=== PATIENT | female | born 1930 | race Caucasian/White ===

== ENCOUNTER → 2017-02-26 | Outpatient (CLI) | payer OTHER ==
[~2017-02-26] MED LIST: ALBU1AER9 PO; ALEN70TA2 PO; ASPEC81 PO; ATOR-22 PO; CHOL100010 PO; CYAN10005 PO; FERR325T5 PO; HYDR25TA4 PO; MECL1TAB40 PO; MULTTAB58 PO; PRLSR20 PO; VERA120C3 PO
--- NOTE | 2017-02-26 15:47 | MAMMOGRAPHY REPORT ---
BILATERAL DIGITAL SCREENING MAMMOGRAM WITH CAD: 02/26/2017 CLINICAL HISTORY: Routine screening. Patient has no complaints. TECHNIQUE: Current study was also evaluated with a Computer Aided Detection (CAD) system. Bilatera l CC and MLO views were obtained. COMPARISON: Comparison is made to exams dated: 02/20/2016 mammogram, 02/16/2015 mammogram, 11/15/2013 mammogram, 11/12/2012 mammogram - [facility], and 05/23/2009. BREAST COMPOSITION: The tissue of both breasts is heterogeneously dense, which may obscure small ma sses. FINDINGS: No suspicious masses, calcifications, or areas of architectural distortion are noted in e ither breast. There has been no significant interval change compared to prior exams. Bilateral jefry gn appearing calcifications are again noted. IMPRESSION: ACR BI-RADS CATEGORY 2: BENIGN There is no mammographic evidence of malignancy. A 1 year screening mammogram is recommended. The p atient will receive written notification of the results. Approximately 10% of breast cancers are not detected with mammography. A negative mammographic repor t should not delay biopsy if a clinically suggestive mass is present. Sanjuanita Negron M.D. /:02/26/2017 15:28:26 Finance Lecturer: Ondina MAKI(Rabia)(M), [facility] letter sent: Normal 1/2 BI-RADS Code: ACR BI-RADS Category 2: Benign
== END | disposition home or self-care (01) ==
LOC: C.MAMM 09:52
PROVIDERS: ATTEND Family Medicine
DX: Z12.31 Encounter for screening mammogram for malignant neoplasm of breast (principal)

== ENCOUNTER 2017-11-06 18:54 | Inpatient (IN) | payer OTHER ==
[~2017-11-06] VITALS: Ht 152.4 cm; Wt 56.1 kg
[2017-11-06] MEDS ORDERED: ONDANSETRON INJ 2 MG/ML 2 ML VIAL IV STA (19:10)
[2017-11-06] MEDS ORDERED: MoRPHine SULFATE 2 MG/ML CARP IV STA ×2 (19:10→21:49)
[2017-11-06] MEDS ORDERED: LIDOCAINE/EPINEPH/TETRACAINE 1 EA SYR EXT STA (19:10)
--- NOTE | 2017-11-06 19:18 | EMERGENCY ROOM VISIT NOTE ---
History Report prepared by Edy: Vera Hoffmann Under the Supervision of: Dr. Munir Alcazar M.D. First contact with patient: 18:56 Chief Complaint: FALL Stated Complaint: FALL/SHOULDER PAIN History of Present Illness The patient is an 86 year old female who presents to the Emergency Room with complaints of an episode of a fall occurring prior to arrival. The patient states that she was on the couch getting ready for bingo when the phone rang. She states that she fell trying to get to the phone and is unsure of why she fell. The patient states that she did hit her head and complains of shoulder pain. She currently rates her pain as an 8/10 in severity. The patient denies loss of consciousness, headache, visual changes, jaw pain, neck pain, chest pain , shortness of breath, abdominal pain, and use of blood thinners. The son notes that the patient last fell a few months ago and notes that she has a walker, but chooses not to use it. Source of History: patient, family Onset: prior to arrival Position: other (global) Symptom Intensity: 8/10 Timing: other (episode) Associated Symptoms: No LOC, No headache, No neck pain, No chest pain, No SOB, No abdominal pain Note: The patient denies visual changes and jaw pain. Review of Systems See HPI for pertinent positives & negatives. A total of 10 systems reviewed and were otherwise negative. Past Medical & Surgical Medical Problems: (1) Cerebral aneurysm, nonruptured (2) Dyslipidemia (3) GERD (gastroesophageal reflux disease) (4) HTN (hypertension) (5) Osteoarthrosis (6) Shoulder fracture, left (7) Subarachnoid hemorrhage Old medical records were reviewed. Nurse's notes were reviewed and I agree with. Family History FHx: cancer FHx: hypertension FHx: seizures Social History Smoking Status: Never Smoker Alcohol Use: none Marital Status: Housing Status: lives alone Occupation Status: retired Current/Historical Medications Scheduled Aspirin (Aspirin Ec), 81 MG PO DAILY Atorvastatin (Lipitor), 20 MG PO DAILY Cholecalciferol (Vitamin D3), 1 TAB PO DAILY Cyanocobalamin (Vitamin B-12), 1,000 MCG PO DAILY Hydrochlorothiazide (Hctz), 12.5 MG PO DAILY Omeprazole (Prilosec), 20 MG PO DAILY Verapamil (Calan), 120 MG PO DAILY Scheduled PRN Albuterol Sulfate (Proair Respiclick), 2 PUFF INH QID PRN for SOB/Wheezing Allergies Coded Allergies: Doxycycline (Verified Allergy, Mild, unknown, 04/19/15) Physical Exam Vital Signs Date Time Temp Pulse Resp B/P (MAP) Pulse Ox O2 Delivery O2 Flow Rate FiO2 11/06/17 21:21 72 20 158/104 97 Room Air 11/06/17 18:59 36.4 64 18 152/89 95 Room Air Physical Exam General: Non-ill appearing older female in no acute distress. GCS 15. Answers questions appropriately. Dried blood seen on her shirt. HEENT: Normal cephalic. Bandage to forehead. Pupils are equal round and reactive to light. Extraocular movements are intact. Oropharynx is pink with moist mucous membranes. No swelling of the mouth lips or tongue. Neck: Supple with a midline trachea. No meningeal signs or stiffness, no JVD or bruits. No Stridor. Chest: Clear to auscultation bilaterally. No wheezes or rhonchi. No increased work of breathing. Heart: regular rate and rhythm. Abdomen: Soft nontender, nondistended without rebound guarding or rigidity. Extremities: No cyanosis clubbing or edema. No calf tenderness or assymetry. Left arm in a sling. Left shoulder swollen and tender to palpation. Normal motor sensation in left hand. Spine/Back. Non tender to palpation. No CVA tenderness Skin: Good turgor without rashes. Neurologic exam: Cranial nerves two through 12 are intact. Motor and sensation are intact and symmetrical throughout. Medical Decision & Procedures ER Provider Diagnostic Interpretation: Radiology results as stated below per my review and radiologist interpretation: HEAD WITHOUT CONTRAST (CT) CLINICAL HISTORY: 86 years-old Female presenting with eval for trauma. TECHNIQUE: Multidetector CT imaging of the head was performed without the use of intravenous contrast. IV contrast: None. A dose lowering technique was used consistent with the principles of ALARA (as low as reasonably achievable). COMPARISON: 04/19/2015. CT DOSE (mGy.cm): The estimated cumulative dose is 614.27 mGy.cm. FINDINGS: Celery Stripper topogram: Unremarkable. Proportional ventricular and sulcal prominence, likely age-related parenchymal volume loss. Periventricular and subcortical white matter hypoattenuation, nonspecific but likely indicative of chronic small vessel ischemic change. 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 Limited chronic infarct in the paramedian right parietal lobe at the vertex unchanged. No mass effect or midline shift. No hemorrhage or acute territorial infarct. No extra-axial fluid collection. Paranasal sinuses and mastoid air cells clear. Calvarium intact. 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 Cerumen likely within the left external auditory canal. IMPRESSION: 1. Stable appearance of chronic small vessel ischemic change, old lacunar infarct in the right basal ganglia, and chronic infarct in the right parietal vertex. No acute intracranial abnormality. Electronically signed by: Bonilla Trammell M.D. 11/06/2017 7:53 PM Dictated Date/Time: 11/06/2017 7:50 PM SINGLE VIEW CHEST CLINICAL HISTORY: Atypical chest pain. FINDINGS: An AP, portable, upright chest radiograph is compared to study dated 01/25/2014. The examination is degraded by portable technique and patient rotation. The heart is top normal for projection. A large hiatal hernia is identified. There is bibasilar atelectasis. The lungs and pleural spaces are otherwise clear. No pneumothorax is seen. The skeletal structures are osteopenic. There is no impacted fracture of the left humeral head and neck. IMPRESSION: 1. No acute cardiopulmonary abnormality. 2. Large hiatal hernia. 3. Impacted fracture of the left humeral head and neck. Electronically signed by: Antolin Beltran M.D. 11/06/2017 7:36 PM Dictated Date/Time: 11/06/2017 7:35 PM L SHOULDER MIN 2 VIEWS ROUTINE CLINICAL HISTORY: 86 years-old Female presenting with eval for fx, dislocation. TECHNIQUE: Internal rotation and transscapular Y views of the left shoulder were obtained. COMPARISON: Chest x-ray from 01/25/2014. FINDINGS: Mildly displaced fracture of the humeral neck with 6 mm of anterior and medial displacement of the distal fracture fragment. The humeral head appears grossly congruent with the glenoid fossa. Osteopenia suspected. Acromioclavicular joint congruent. Visualized portion of the thorax demonstrates suspected large hiatal hernia. Pulmonary vascular prominence or cardiomegaly is difficult to exclude. Right basilar opacity may also be present. IMPRESSION: 1. Mildly displaced fracture of the humeral neck. Electronically signed by: Bonilla Trammell M.D. 11/06/2017 7:44 PM Dictated Date/Time: 11/06/2017 7:41 PM R HAND MIN 3 VIEWS ROUTINE CLINICAL HISTORY: 86 years-old Female presenting with RIGHT HAND/WRIST PAIN S/P FALL. TECHNIQUE: Frontal, oblique, and lateral views of the right hand were obtained. COMPARISON: None. FINDINGS: Osteopenia limits evaluation for nondisplaced fracture. Degenerative changes and chondrocalcinosis noted in the wrist. No acute fracture or malalignment. A pulse oximeter overlies the second finger, degrading evaluation in this region. Degenerative changes noted at several of the distal interphalangeal joints, specifically in the fourth and fifth fingers. IMPRESSION: 1. Osteopenia. 2. No acute osseous injury. 3. Degenerative changes of the distal interphalangeal joints of the fourth and fifth fingers. 4. Please see separately dictated radiographs of the wrist. Electronically signed by: Bonilla Trammell M.D. 11/06/2017 8:54 PM Dictated Date/Time: 11/06/2017 8:53 PM R WRIST MIN 3 VIEWS ROUTINE CLINICAL HISTORY: 86 years-old Female presenting with RIGHT HAND/WRIST PAIN. TECHNIQUE: Frontal, bilateral oblique, and lateral views of the right wrist were obtained. COMPARISON: None. FINDINGS: Osteopenia. Chondrocalcinosis of the triangular fibrocartilage complex. Cystic change noted in the lunate, evidence of degenerative changes. No acute fracture allowing for osteopenia, which limits evaluation for nondisplaced fracture. No malalignment. Degenerative changes at the trapezium-first metacarpal. IMPRESSION: 1. No acute osseous injury. 2. Degenerative changes in the lunate and at the first carpometacarpal articulation. 3. Chondrocalcinosis. 4. Osteopenia. Electronically signed by: Bonilla Trammell M.D. 11/06/2017 8:53 PM Dictated Date/Time: 11/06/2017 8:51 PM Laboratory Results 11/06/17 19:21 Red Blood Count 4.69, Mean Corpuscular Volume 88.3, Mean Corpuscular Hemoglobin 28.8, Mean Corpuscular Hemoglobin Concent 32.6, Mean Platelet Volume 10.9 11/06/17 19:21 Test 11/06/17 19:21 White Blood Count 8.86 K/uL (4.8-10.8) Red Blood Count 4.69 M/uL (4.2-5.4) Hemoglobin 13.5 g/dL (12.0-16.0) Hematocrit 41.4 % (37-47) Mean Corpuscular Volume 88.3 fL (80-100) Mean Corpuscular Hemoglobin 28.8 pg (25-34) Mean Corpuscular Hemoglobin Concent 32.6 g/dl (32-36) Platelet Count 221 K/uL (130-400) Mean Platelet Volume 10.9 fL (7.4-10.4) RDW Standard Deviation 49.8 fL (36.4-46.3) RDW Coefficient of Variation 15.5 % (11.5-14.5) Neutrophils % (Manual) 73.9 % Lymphocytes % (Manual) 21.6 % Monocytes % (Manual) 1.8 % Eosinophils % (Manual) 1.8 % Metamyelocytes % 0.9 % Neutrophils # (Manual) 6.55 K/uL (1.4-6.5) Total Absolute Neutrophils 6.55 K/uL (1.4-6.5) Lymphocytes # (Manual) 1.91 K/uL (1.2-3.4) Total Absolute Lymphocytes 1.91 K/uL (1.2-3.4) Monocytes # (Manual) 0.16 K/uL (0.11-0.59) Eosinophils # (Manual) 0.16 K/uL (0-0.5) Metamyelocytes # 0.08 K/uL (0-0) Giant Platelets 1+ Anion Gap 5.0 mmol/L (3-11) Est Creatinine Clear Calc Drug Dose 28.4 ml/min Estimated GFR () 49.6 Estimated GFR (Non- 42.8 BUN/Creatinine Ratio 17.0 (10-20) Calcium Level 9.0 mg/dl (8.5-10.1) Magnesium Level 2.1 mg/dl (1.8-2.4) Total Bilirubin 0.4 mg/dl (0.2-1) Direct Bilirubin 0.1 mg/dl (0-0.2) Aspartate Amino Transf (AST/SGOT) 18 U/L (15-37) Alanine Aminotransferase (ALT/SGPT) 23 U/L (12-78) Alkaline Phosphatase 82 U/L (45-117) Total Protein 7.0 gm/dl (6.4-8.2) Albumin 3.3 gm/dl (3.4-5.0) Lipase 169 U/L (73-393) Laboratory studies as stated above per my review. Medications Administered Medications (Trade) Dose Ordered Sig/Maricruz Route Start Time Stop Time Status Last Admin Dose Admin Ondansetron HCl (Zofran Inj) 4 mg NOW STAT IV 11/06/17 19:10 11/06/17 19:14 DC 11/06/17 19:28 4 MG Morphine Sulfate (MoRPHine SULFATE INJ) 2 mg NOW STAT IV 11/06/17 19:10 11/06/17 19:14 DC 11/06/17 19:29 2 MG Tetracaine/ Epinephrine/ Lidocaine (L.e.t. Gel 4%/ 1:100/0.5%) 1 ea NOW STAT EXT 11/06/17 19:10 11/06/17 19:14 DC 11/06/17 19:40 1 EA Morphine Sulfate (MoRPHine SULFATE INJ) 2 mg NOW STAT IV 11/06/17 21:49 11/06/17 21:50 DC 11/06/17 22:18 2 MG ED Course 1899: Past medical records reviewed. The patient was evaluated in room C3, and a complete history and physical examination were performed. 1909: Ordered Tetracaine/ Epinephrine/ Lidocaine 1 ea EXT, Morphine Sulfate 2 mg IV, Zofran Inj 4 mg IV. 2045: I reevaluated the patient and she is doing well. My PA is going to fix her laceration. 2144: I reevaluated the patient and she is still in a lot of pain. 2148: Ordered Morphine Sulfate 2 mg IV. 2199: Discussed the patient's case with Dr. Rony Gregory Hospitalist. The patient will be evaluated for further management. Medical Decision Differential diagnoses include orthopedic injury, anemia, intracranial hemorrhage, skull fracture, arrhythmia. This patient comes in as described above. She suffered a mechanical fall and getting up to go to play bingo. She hit her head and has a laceration on the left face/scalp. She has a Madeleine Coma Score 15 and is in no distress otherwise .she's complaining of left arm pain on exam the shoulder is markedly swollen. She is neurologically and neurovascularly intact otherwise she's had no chest or abdominal complaints or trauma. There was no syncope. She had blood testing obtained shows a CAT scan of her head and face and neck which do not show any acute abnormalities. The shoulder x-ray shows a fracture of the humerus proximal bleed. She was given IV pain medications and despite this was still having pain her son does not feel she is safe to go home I do think she needs to be observed/admitted and have consulted the hospitalist team to see her. Head Trauma GCS Score: 15 Medication Reconcilliation Current Medication List: was personally reviewed by me Blood Pressure Screening Patient's blood pressure: Elevated blood pressure Will be further monitored by the hospitalist. Consults Time Called: 2149 Consulting Physician: Dr. Rony Gregory Hospitalist Returned Call: 2199 Discussed the patient's case with Dr. Rony Gregory Hospitaldylan. The patient will be evaluated for further management. Impression Primary Impression: Humerus fracture Additional Impressions: Fall Head injury Laceration Scribe Attestation The scribe's documentation has been prepared under my direction and personally reviewed by me in its entirety. I confirm that the note above accurately reflects all work, treatment, procedures, and medical decision making performed by me. Departure Information Dispostion Being Evaluated By Hospitalist Referrals Gurwinder Edwards M.D. (PCP) Patient Instructions My [facility] Problem Qualifiers
--- NOTE | 2017-11-06 19:37 | DIAGNOSTIC IMAGING REPORT ---
SINGLE VIEW CHEST CLINICAL HISTORY: Atypical chest pain. FINDINGS: An AP, portable, upright chest radiograph is compared to study dated 01/25/2014. The examination is degraded by portable technique and patient rotation. The heart is top normal for projection. A large hiatal hernia is identified. There is bibasilar atelectasis. The lungs and pleural spaces are otherwise clear. No pneumothorax is seen. The skeletal structures are osteopenic. There is no impacted fracture of the left humeral head and neck. IMPRESSION: 1. No acute cardiopulmonary abnormality. 2. Large hiatal hernia. 3. Impacted fracture of the left humeral head and neck. Electronically signed by: Antolin Beltran M.D. 11/06/2017 7:36 PM Dictated Date/Time: 11/06/2017 7:35 PM
[2017-11-06 19:41] LABS: HEMATOCRIT 41.4 % (37-47); HEMOGLOBIN 13.5 g/dL (12.0-16.0); MEAN CELL VOLUME 88.3 fL (80-100); MEAN CORPUSCULAR HEMOGLOBIN 28.8 pg (25-34); MEAN CORPUSCULAR HGB CONC 32.6 g/dl (32-36); MEAN PLATELET VOLUME 10.9 fL (7.4-10.4); PLATELET COUNT 221 K/uL (130-400); RED CELL DISTRIBUTION WIDTH CV 15.5 % (11.5-14.5); RED CELL DISTRIBUTION WIDTH SD 49.8 fL (36.4-46.3); WHITE BLOOD COUNT 8.86 K/uL (4.8-10.8)
--- NOTE | 2017-11-06 19:45 | DIAGNOSTIC IMAGING REPORT ---
L SHOULDER MIN 2 VIEWS ROUTINE CLINICAL HISTORY: 86 years-old Female presenting with eval for fx, dislocation. TECHNIQUE: Internal rotation and transscapular Y views of the left shoulder were obtained. COMPARISON: Chest x-ray from 01/25/2014. FINDINGS: Mildly displaced fracture of the humeral neck with 6 mm of anterior and medial displacement of the distal fracture fragment. The humeral head appears grossly congruent with the glenoid fossa. Osteopenia suspected. Acromioclavicular joint congruent. Visualized portion of the thorax demonstrates suspected large hiatal hernia. Pulmonary vascular prominence or cardiomegaly is difficult to exclude. Right basilar opacity may also be present. IMPRESSION: 1. Mildly displaced fracture of the humeral neck. Electronically signed by: Bonilla Trammell M.D. 11/06/2017 7:44 PM Dictated Date/Time: 11/06/2017 7:41 PM
--- NOTE | 2017-11-06 19:55 | DIAGNOSTIC IMAGING REPORT ---
HEAD WITHOUT CONTRAST (CT) CLINICAL HISTORY: 86 years-old Female presenting with eval for trauma. TECHNIQUE: Multidetector CT imaging of the head was performed without the use of intravenous contrast. IV contrast: None. A dose lowering technique was used consistent with the principles of ALARA (as low as reasonably achievable). COMPARISON: 04/19/2015. CT DOSE (mGy.cm): The estimated cumulative dose is 614.27 mGy.cm. FINDINGS: Porcelain Buildup Assistant topogram: Unremarkable. Proportional ventricular and sulcal prominence, likely age-related parenchymal volume loss. Periventricular and subcortical white matter hypoattenuation, nonspecific but likely indicative of chronic small vessel ischemic change. 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 Limited chronic infarct in the paramedian right parietal lobe at the vertex unchanged. No mass effect or midline shift. No hemorrhage or acute territorial infarct. No extra-axial fluid collection. Paranasal sinuses and mastoid air cells clear. Calvarium intact. 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 Cerumen likely within the left external auditory canal. IMPRESSION: 1. Stable appearance of chronic small vessel ischemic change, old lacunar infarct in the right basal ganglia, and chronic infarct in the right parietal vertex. No acute intracranial abnormality. Electronically signed by: Bonilla Trammell M.D. 11/06/2017 7:53 PM Dictated Date/Time: 11/06/2017 7:50 PM
[2017-11-06 19:58] LABS: ALBUMIN 3.3 gm/dl (3.4-5.0); CREATININE 1.17 mg/dl (0.60-1.20); POTASSIUM 3.4 mmol/L (3.5-5.1)
[2017-11-06] MEDS ORDERED: SIMV20TA2 PO (20:26)
[2017-11-06] MEDS ORDERED: ASPI81TA28 PO (20:26)
[2017-11-06] MEDS ORDERED: VERA120T15 PO (20:26)
[2017-11-06] MEDS ORDERED: CHOL1000 PO (20:29)
[2017-11-06] MEDS ORDERED: ALBU18002 INH (20:32)
--- NOTE | 2017-11-06 20:54 | DIAGNOSTIC IMAGING REPORT ---
R WRIST MIN 3 VIEWS ROUTINE CLINICAL HISTORY: 86 years-old Female presenting with RIGHT HAND/WRIST PAIN. TECHNIQUE: Frontal, bilateral oblique, and lateral views of the right wrist were obtained. COMPARISON: None. FINDINGS: Osteopenia. Chondrocalcinosis of the triangular fibrocartilage complex. Cystic change noted in the lunate, evidence of degenerative changes. No acute fracture allowing for osteopenia, which limits evaluation for nondisplaced fracture. No malalignment. Degenerative changes at the trapezium-first metacarpal. IMPRESSION: 1. No acute osseous injury. 2. Degenerative changes in the lunate and at the first carpometacarpal articulation. 3. Chondrocalcinosis. 4. Osteopenia. Electronically signed by: Bonilla Trammell M.D. 11/06/2017 8:53 PM Dictated Date/Time: 11/06/2017 8:51 PM
--- NOTE | 2017-11-06 20:56 | DIAGNOSTIC IMAGING REPORT ---
R HAND MIN 3 VIEWS ROUTINE CLINICAL HISTORY: 86 years-old Female presenting with RIGHT HAND/WRIST PAIN S/P FALL. TECHNIQUE: Frontal, oblique, and lateral views of the right hand were obtained. COMPARISON: None. FINDINGS: Osteopenia limits evaluation for nondisplaced fracture. Degenerative changes and chondrocalcinosis noted in the wrist. No acute fracture or malalignment. A pulse oximeter overlies the second finger, degrading evaluation in this region. Degenerative changes noted at several of the distal interphalangeal joints, specifically in the fourth and fifth fingers. IMPRESSION: 1. Osteopenia. 2. No acute osseous injury. 3. Degenerative changes of the distal interphalangeal joints of the fourth and fifth fingers. 4. Please see separately dictated radiographs of the wrist. Electronically signed by: Bonilla Trammell M.D. 11/06/2017 8:54 PM Dictated Date/Time: 11/06/2017 8:53 PM
--- NOTE | 2017-11-06 21:13 | EMERGENCY ROOM VISIT NOTE ---
ED Visit Note Patient was seen and evaluated at the request of my attending physician, Dr. Alcazar, for a left forehead laceration. Please see Dr. Alcazar's dictation for full history of present illness and Emergency Department course outside of this repair. In short, the patient suffered a fall, and subsequent 1.0 cm fairly linear laceration to the left lateral forehead. This does gape and will require repair. Laceration repair. Patient elects to have their laceration repaired. Verbal consent was obtained to perform the procedure. There is an abundance of materials available for the procedure. Patient is not allergic to latex. Using sterile technique the wound was cleaned with Betadine. The area was sterilely draped. LET gel was used to anesthetize the laceration. Once the patient was anesthetized, the wound was copiously irrigated under pressure with sterile saline. The wound was explored and there were no deep structures injured such as tendons, bone, or significant blood vessels. The laceration was repaired using 2 simple interrupted 6-0 nylon sutures with the wound edges being well approximated. Hemostasis was achieved. The area was cleaned with sterile saline and dressed with bacitracin ointment and bandage. Patient tolerated the procedure well without complications. Blood loss was negligible. Problem List Medical Problems: (1) Cataract Status: Chronic (2) History of ruptured brain aneurysm Status: Chronic (3) Hypertension Status: Chronic (4) Subarachnoid hemorrhage Status: Chronic Current/Historical Medications Scheduled Aspirin (Aspirin Ec), 81 MG PO DAILY Atorvastatin (Lipitor), 20 MG PO DAILY Cholecalciferol (Vitamin D3), 1 TAB PO DAILY Cyanocobalamin (Vitamin B-12), 1,000 MCG PO DAILY Ferrous Sulfate (Ferrous Sulfate), 325 MG PO DAILY Hydrochlorothiazide (Hctz), 12.5 MG PO DAILY Multiple Vitamin (Multivitamin), 1 TAB PO DAILY Omeprazole (Prilosec), 20 MG PO DAILY Simvastatin (Zocor), 20 MG PO DAILY Verapamil (Calan), 120 MG PO DAILY Scheduled PRN Albuterol Sulfate (Proair Respiclick), 2 PUFF INH QID PRN for SOB/Wheezing Allergies Coded Allergies: Doxycycline (Verified Allergy, Mild, unknown, 04/19/15) Vital Signs Date Time Temp Pulse Resp B/P (MAP) Pulse Ox O2 Delivery O2 Flow Rate FiO2 11/06/17 18:59 36.4 64 18 152/89 95 Room Air Laboratory Results 11/06/17 19:21 Red Blood Count 4.69, Mean Corpuscular Volume 88.3, Mean Corpuscular Hemoglobin 28.8, Mean Corpuscular Hemoglobin Concent 32.6, Mean Platelet Volume 10.9 11/06/17 19:21 Test 11/06/17 19:21 White Blood Count 8.86 K/uL (4.8-10.8) Red Blood Count 4.69 M/uL (4.2-5.4) Hemoglobin 13.5 g/dL (12.0-16.0) Hematocrit 41.4 % (37-47) Mean Corpuscular Volume 88.3 fL (80-100) Mean Corpuscular Hemoglobin 28.8 pg (25-34) Mean Corpuscular Hemoglobin Concent 32.6 g/dl (32-36) Platelet Count 221 K/uL (130-400) Mean Platelet Volume 10.9 fL (7.4-10.4) RDW Standard Deviation 49.8 fL (36.4-46.3) RDW Coefficient of Variation 15.5 % (11.5-14.5) Neutrophils % (Manual) 73.9 % Lymphocytes % (Manual) 21.6 % Monocytes % (Manual) 1.8 % Eosinophils % (Manual) 1.8 % Metamyelocytes % 0.9 % Neutrophils # (Manual) 6.55 K/uL (1.4-6.5) Total Absolute Neutrophils 6.55 K/uL (1.4-6.5) Lymphocytes # (Manual) 1.91 K/uL (1.2-3.4) Total Absolute Lymphocytes 1.91 K/uL (1.2-3.4) Monocytes # (Manual) 0.16 K/uL (0.11-0.59) Eosinophils # (Manual) 0.16 K/uL (0-0.5) Metamyelocytes # 0.08 K/uL (0-0) Giant Platelets 1+ Anion Gap 5.0 mmol/L (3-11) Est Creatinine Clear Calc Drug Dose 28.4 ml/min Estimated GFR () 49.6 Estimated GFR (Non- 42.8 BUN/Creatinine Ratio 17.0 (10-20) Calcium Level 9.0 mg/dl (8.5-10.1) Total Bilirubin 0.4 mg/dl (0.2-1) Direct Bilirubin 0.1 mg/dl (0-0.2) Aspartate Amino Transf (AST/SGOT) 18 U/L (15-37) Alanine Aminotransferase (ALT/SGPT) 23 U/L (12-78) Alkaline Phosphatase 82 U/L (45-117) Total Protein 7.0 gm/dl (6.4-8.2) Albumin 3.3 gm/dl (3.4-5.0) Lipase 169 U/L (73-393) Medications Administered Medications (Trade) Dose Ordered Sig/Maricruz Route Start Time Stop Time Status Last Admin Dose Admin Ondansetron HCl (Zofran Inj) 4 mg NOW STAT IV 11/06/17 19:10 11/06/17 19:14 DC 11/06/17 19:28 4 MG Morphine Sulfate (MoRPHine SULFATE INJ) 2 mg NOW STAT IV 11/06/17 19:10 11/06/17 19:14 DC 11/06/17 19:29 2 MG Tetracaine/ Epinephrine/ Lidocaine (L.e.t. Gel 4%/ 1:100/0.5%) 1 ea NOW STAT EXT 11/06/17 19:10 11/06/17 19:14 DC 11/06/17 19:40 1 EA Departure Information Referrals Gurwinder Edwards M.D. (PCP) Patient Instructions My [facility]
[2017-11-06] MEDS ORDERED: NALOXONE HCL 0.4 MG/1 ML VIAL/CARP IV PRN (23:15)
[2017-11-06] MEDS ORDERED: ONDANSETRON INJ 2 MG/ML 2 ML VIAL IV PRN (23:15)
[2017-11-06] MEDS ORDERED: MAGNESIUM HYDROXIDE SUSP 30 ML UDC PO PRN (23:15)
[2017-11-06] MEDS ORDERED: SOD PHOSPHATE/SOD BIPHOSPHATE ENEMA 132 ML BTL PR PRN (23:15)
[2017-11-06] MEDS ORDERED: BISACODYL 10 MG SUPP PR PRN (23:15)
[2017-11-06] MEDS ORDERED: ACETAMINOPHEN 325 MG TAB PO PRN (23:15)
[2017-11-06] MEDS ORDERED: POLYETHYLENE (MIRALAX) 17 GM PACK PO PRN (23:15)
[2017-11-06 23:30] VITALS: BP 165/89; PULSE 62; TEMP 36.4; Ht 152.4 cm; Wt 56.1 kg
[2017-11-06] MEDS: HYDROCODONE/ACETAMIN 5/325MG TAB PO PRN (23:33)
[2017-11-06] MEDS ORDERED: POTASSIUM CHLORIDE 10 MEQ TABCR PO STA (23:34)
--- NOTE | 2017-11-06 23:44 | History and Physical ---
History & Physical Date & Time of Service: Nov 06, 2017 at 23:28 Chief Complaint: Fall/Shoulder Pain Primary Care Physician: Gurwinder Edwards M.D. History of Present Illness 86 year old female who presents to the ED after suffering a fall and developing left shoulder pain and forehead laceration. Patient reports she walking around her apartment getting ready for bingo when she fell. She was using her walker. She is unsure how she fell. She did not loose consciousness. No associated lightheadedness, dizziness, chest pain, or shortness of breath. She denies loss of bowel or bladder function. She was able to use her life alert button to call for help. Patient reports she has been feeling well recently. No abdominal pain , nausea, vomiting, or diarrhea. She denies fever and chills. No urinary symptoms. In the ED, patient is found to have a mildly displaced left femoral neck fracture. Labs are unremarkable. Vitals are stable. Past Medical/Surgical History Medical Problems: (1) Cerebral aneurysm, nonruptured Status: Chronic (2) Dyslipidemia Status: Chronic (3) GERD (gastroesophageal reflux disease) Status: Chronic (4) HTN (hypertension) Status: Chronic (5) Osteoarthrosis Status: Chronic (6) Subarachnoid hemorrhage Status: Resolved Family History non contributory due to patient's advanced age Social History Smoking Status: Never Smoker Alcohol Use: none Immunizations History of Influenza Vaccine: Yes Influenza Vaccine Date: Jul 06, 2016 History of Tetanus Vaccine?: Yes Tetanus Immunization Date: May 18, 2008 History of Pneumococcal: Yes Pneumococcal Date: Jul 17, 2015 Multi-Drug Resistant Organisms History of MDRO: No Allergies Coded Allergies: Doxycycline (Verified Allergy, Mild, unknown, 04/19/15) Home Medications Scheduled Aspirin (Aspirin Ec), 81 MG PO DAILY Atorvastatin (Lipitor), 20 MG PO DAILY Cholecalciferol (Vitamin D3), 1 TAB PO DAILY Cyanocobalamin (Vitamin B-12), 1,000 MCG PO DAILY Hydrochlorothiazide (Hctz), 12.5 MG PO DAILY Omeprazole (Prilosec), 20 MG PO DAILY Verapamil (Calan), 120 MG PO DAILY Scheduled PRN Albuterol Sulfate (Proair Respiclick), 2 PUFF INH QID PRN for SOB/Wheezing Review of Systems ROS per HPI, all other systems reviewed and negative Physical Exam Vital Signs Date Time Temp Pulse Resp B/P (MAP) Pulse Ox O2 Delivery O2 Flow Rate FiO2 11/06/17 22:37 66 18 116/75 92 Room Air 11/06/17 21:21 72 20 158/104 97 Room Air 11/06/17 18:59 36.4 64 18 152/89 95 Room Air General Appearance: WD/WN, no apparent distress Head: normocephalic, + evidence of trama (small laceration to left temporal area with sutures in place) Eyes: normal inspection, EOMI, sclerae normal ENT: hearing grossly normal, + pertinent finding (mucous membranes moist) Neck: supple, no JVD, trachea midline Respiratory/Chest: lungs clear, normal breath sounds, no respiratory distress Cardiovascular: regular rate, rhythm, no edema, normal peripheral pulses Abdomen/GI: normal bowel sounds, non tender, soft, no organomegaly Extremities/Musculoskelatal: no calf tenderness, normal capillary refill, + pertinent finding (left shoulder pain with minimal movement, LUE in sling, CSM checks intact to LUE) Neurologic/Psych: no motor/sensory deficits, alert, normal mood/affect, oriented x 3 Skin: normal color, warm/dry Diagnostics Laboratory Results Results Past 24 Hours Test 11/06/17 19:21 Range/Units White Blood Count 8.86 4.8-10.8 K/uL Red Blood Count 4.69 4.2-5.4 M/uL Hemoglobin 13.5 12.0-16.0 g/dL Hematocrit 41.4 37-47 % Mean Corpuscular Volume 88.3 80-100 fL Mean Corpuscular Hemoglobin 28.8 25-34 pg Mean Corpuscular Hemoglobin Concent 32.6 32-36 g/dl Platelet Count 221 130-400 K/uL Mean Platelet Volume 10.9 7.4-10.4 fL RDW Standard Deviation 49.8 36.4-46.3 fL RDW Coefficient of Variation 15.5 11.5-14.5 % Neutrophils % (Manual) 73.9 % Lymphocytes % (Manual) 21.6 % Monocytes % (Manual) 1.8 % Eosinophils % (Manual) 1.8 % Metamyelocytes % 0.9 % Neutrophils # (Manual) 6.55 1.4-6.5 K/uL Total Absolute Neutrophils 6.55 1.4-6.5 K/uL Lymphocytes # (Manual) 1.91 1.2-3.4 K/uL Total Absolute Lymphocytes 1.91 1.2-3.4 K/uL Monocytes # (Manual) 0.16 0.11-0.59 K/uL Eosinophils # (Manual) 0.16 0-0.5 K/uL Metamyelocytes # 0.08 0-0 K/uL Giant Platelets 1+ Sodium Level 140 136-145 mmol/L Potassium Level 3.4 3.5-5.1 mmol/L Chloride Level 104 98-107 mmol/L Carbon Dioxide Level 31 21-32 mmol/L Anion Gap 5.0 3-11 mmol/L Blood Urea Nitrogen 20 7-18 mg/dl Creatinine 1.17 0.60-1.20 mg/dl Est Creatinine Clear Calc Drug Dose 28.4 ml/min Estimated GFR () 49.6 Estimated GFR (Non- 42.8 BUN/Creatinine Ratio 17.0 10-20 Random Glucose 169 70-99 mg/dl Calcium Level 9.0 8.5-10.1 mg/dl Total Bilirubin 0.4 0.2-1 mg/dl Direct Bilirubin 0.1 0-0.2 mg/dl Aspartate Amino Transf (AST/SGOT) 18 15-37 U/L Alanine Aminotransferase (ALT/SGPT) 23 12-78 U/L Alkaline Phosphatase 82 45-117 U/L Total Protein 7.0 6.4-8.2 gm/dl Albumin 3.3 3.4-5.0 gm/dl Lipase 169 73-393 U/L Diagnostic Radiology LEFT SHOULDER XR IMPRESSION: 1. Mildly displaced fracture of the humeral neck. CT HEAD IMPRESSION: 1. Stable appearance of chronic small vessel ischemic change, old lacunar infarct in the right basal ganglia, and chronic infarct in the right parietal vertex. No acute intracranial abnormality. CXR IMPRESSION: 1. No acute cardiopulmonary abnormality. 2. Large hiatal hernia. 3. Impacted fracture of the left humeral head and neck. RIGHT WRIST/HAND XR IMPRESSION: 1. No acute osseous injury. 2. Degenerative changes in the lunate and at the first carpometacarpal articulation. 3. Chondrocalcinosis. 4. Osteopenia. Impression Assessment and Plan MECHANICAL FALL LEFT HUMERUS FRACTURE - admit to med/surg - patient presenting from home after a mechanical fall; in the ED, found to have mildly displaced left humeral fracture - forehead laceration s/p suturing in the ED - ortho consult - check EKG - NPO after midnight due to potential OR tomorrow - U/A for fall work up HTN - BP controlled, continue HCTZ and verapamil HLD - continue statin GERD - continue PPI DVT PROPHYLAXIS - SCDs in the event patient needs to go to the OR CODE STATUS - Patient is a full code as per my discussion with her. DISPO - In my clinical judgment this beneficiary meets acute admission criteria, established by [facility], that includes being hospitalized through two midnights. I have seen and examined the patient and agree with the assessment and plan as above. Her UTI appears positive despite not having any UTI symptoms. Will treat empirically with Rocephin at this time. Appreciate Ortho recs. Uribe, DO VTE Prophylaxis VTE Risk Assessment Done? Y/N: Yes Risk Level: Moderate
[2017-11-07] MEDS: PANTOprazole SOD 40 MG TAB PO SCH (07:14)
[2017-11-07] MEDS: VERAPAMIL HCL 120 MG TABCR PO SCH (07:14)
[2017-11-07] MEDS: ASPIRIN 81 MG ECTAB PO SCH (07:14)
[2017-11-07] MEDS: CHOLECALCIFEROL 1000 INTER.UNIT TAB PO SCH (07:14)
[2017-11-07] MEDS: CYANOCOBALAMIN 500 MCG TAB (VIT B-12) PO SCH (07:15)
[2017-11-07] MEDS: HYDROCHLOROTHIAZIDE 25 MG TAB PO SCH (07:15)
[2017-11-07] MEDS: ATORVASTATIN 20 MG TAB PO SCH (07:15)
[2017-11-07 07:32] VITALS: BP 146/84; PULSE 68; TEMP 36.5; O2SAT 90
[2017-11-07] MEDS: HYDROCODONE/ACETAMIN 5/325MG TAB PO PRN (07:33)
[2017-11-07 09:18] LABS: HEMATOCRIT 39.1 % (37-47); HEMOGLOBIN 12.6 g/dL (12.0-16.0); MEAN CELL VOLUME 88.1 fL (80-100); MEAN CORPUSCULAR HEMOGLOBIN 28.4 pg (25-34); MEAN CORPUSCULAR HGB CONC 32.2 g/dl (32-36); MEAN PLATELET VOLUME 11.4 fL (7.4-10.4); PLATELET COUNT 238 K/uL (130-400); RED CELL DISTRIBUTION WIDTH CV 15.6 % (11.5-14.5); RED CELL DISTRIBUTION WIDTH SD 50.2 fL (36.4-46.3); WHITE BLOOD COUNT 11.19 K/uL (4.8-10.8)
[2017-11-07 09:55] LABS: CALCIUM 8.8 mg/dl (8.5-10.1); CREATININE 0.92 mg/dl (0.60-1.20); POTASSIUM 3.6 mmol/L (3.5-5.1)
[2017-11-07] MEDS: CEFTRIAXONE SOD INJ 1 GM in DEXTROSE 5% ADD-VANTAGE 50ML 50 ML IV SCH (10:17)
[2017-11-07] MEDS: MoRPHine SULFATE 4 MG/ML 1 ML CARP\\VIAL IV PRN (10:24)
--- NOTE | 2017-11-07 10:45 | CONSULTATION REPORT ---
DATE OF CONSULTATION: 11/07/2017 REASON FOR CONSULT: Left proximal humerus fracture. HISTORY OF PRESENT ILLNESS: The patient is an 86-year-old white female who resides by herself in an apartment center here in [place]. Her son is present and the patient states that she was getting ready to go to [facility]. She was using her walker and she got to the door, she lost her balance somehow and fell to the ground. She denies loss of consciousness. She did bump her head and caused a small laceration on the left forehead, but states she had no lightheadedness or dizziness prior to this fall. She states she had multiple falls in the past. She was worried about the bleeding and was trying to clean it up. She pressed her [employer] necklace and E squad was dispatched to her apartment and it was found she had left shoulder pain and was brought to the Emergency Room. She was seen by the staff. X-rays were taken and it was found that she had a left proximal humerus fracture and was admitted for further care. We have been asked to see her for her left proximal humerus fracture. PAST MEDICAL HISTORY: History of cerebral aneurysm, dyslipidemia, GERD, hypertension, osteoporosis, history of subarachnoid hemorrhage in the past, history of lower extremity DVT, osteoarthritis, GERD, hypertension. PAST SURGICAL HISTORY: Colonoscopy, polypectomy. FAMILY HISTORY: Noncontributory due to patient's age. SOCIAL HISTORY: The patient resides in an apartment for senior citizens: She does live alone but does have home nursing coming in 5 days a week. She is a nonsmoker and does not use alcohol. MEDICATIONS: Aspirin 81 mg p.o. daily, atorvastatin 20 mg p.o. daily, vitamin D3 one tab p.o. daily, vitamin B12 1000 mcg p.o. daily, hydrochlorothiazide 12.5 mg p.o. daily, Omeprazole 20 mg p.o. daily, verapamil 120 mg p.o. daily, albuterol 2 puffs inhaled q.i.d. p.r.n. ALLERGIES: DOXYCYCLINE. REVIEW OF SYSTEMS: As per admitting history and physical. PHYSICAL EXAMINATION: GENERAL: The patient is an elderly white female who appears her stated age. She is currently sitting up in bed, is awake and alert and oriented to person and place. She is pleasant and cooperative. She has some mild pain in the left shoulder currently due to her left proximal humerus fracture. EXTREMITIES: On examination of her left shoulder, she has mild to moderate swelling noted from the fracture itself and she has tenderness to palpation of the left shoulder. She is nontender at the elbow and wrist of the left upper extremity and she obviously has limited range of motion of the left shoulder due to pain. She does not have any pain with range of motion of the elbow or wrist at this time and sensation is intact. She is moving the fingers and wrist of the left hand quite well without discomfort. Right upper extremity is essentially benign at this time and has good range of motion. Lower extremities have not been affected. She is nontender at the hips, knees and ankles. There is no gross motor or sensory deficits seen at this time other than left shoulder because of fracture and pain causing decreased range of motion. X-RAY: Review of the left shoulder shows a mildly displaced fracture at the humeral neck. ASSESSMENT: Left proximal humerus fracture. PLAN: At this time, we will continue her sling with limited range of motion of the left shoulder. I have had Dr. Dias review the films. We will order a CT scan of the left shoulder. Currently she will be treated nonsurgically with a sling to the LUE. Further recommendations once the CT scan is completed. PATRICIO
[2017-11-07 15:01] VITALS: BP 109/74; PULSE 77; TEMP 36.6; O2SAT 91
--- NOTE | 2017-11-07 16:55 | Orthopedic Progress Note ---
Orthopedic Progress Note Date of Service Nov 07, 2017. Objective Date Time Temp Pulse Resp B/P (MAP) Pulse Ox O2 Delivery O2 Flow Rate FiO2 11/07/17 15:01 36.6 77 18 109/74 (86) 91 Room Air 11/07/17 07:32 36.5 68 18 146/84 (104) 90 Room Air 11/07/17 07:15 Room Air 11/07/17 00:00 Room Air 11/06/17 23:32 88 18 123/85 94 Room Air 11/06/17 23:30 36.4 62 18 165/89 Room Air 11/06/17 22:37 66 18 116/75 92 Room Air 11/06/17 21:21 72 20 158/104 97 Room Air 11/06/17 18:59 36.4 64 18 152/89 95 Room Air Laboratory Results 24 Hours: Test 11/06/17 19:21 11/07/17 08:51 White Blood Count 8.86 K/uL Red Blood Count 4.69 M/uL Hemoglobin 13.5 g/dL 12.6 g/dL Hematocrit 41.4 % 39.1 % Mean Corpuscular Volume 88.3 fL Mean Corpuscular Hemoglobin 28.8 pg Mean Corpuscular Hemoglobin Concent 32.6 g/dl Platelet Count 221 K/uL Mean Platelet Volume 10.9 fL Assessment & Plan Plan: CT scan reviewed. No intra articular involvement, some apex anterior angulation but in acceptable alignment. I discussed with the patient the need for careful monitoring because this fracture pattern can collapse but for now its acceptable for non-op tx. Con't sling. F/U in 1 week for new xrays
--- NOTE | 2017-11-07 20:35 | Progress Note ---
Internal Med Progress Note Date of Service: Nov 07, 2017. Provider Documentation: SUBJECTIVE: says fell yesterday at home in kitchen didn't passed out do not know how she fell has some pain at injury site afebrile no chest pain or sob no nausea OBJECTIVE: Vital Signs-as noted below Exam: General-alert and oriented. Not in distress HEENT- laceration and bruise on left frontal side of head s/p sutures Normal hearing Neck-no neck masses Lungs-cta b/l no wheezing or crackles Heart-S 1 and S 2heard regular rate and rhythm no murmurs Abdomen-soft bowel sounds present non tender no distension Extremities-left arm in sling no edema no erythema Neuro-alert and awake moves extremities Lab data as noted below. ASSESSMENT & PLAN: MECHANICAL FALL LEFT HUMERUS FRACTURE found to have mildly displaced left humeral fracture forehead laceration s/p suturing in the ED Ortho consulted and planning to treat conservatively with sling and repeat xrays in one week pt/ot HTN on HCTZ and verapamil will monitor HLD on statin GERD PPI DVT PROPHYLAXIS - SCDs CODE STATUS Patient is a full code as per admission DISPOSITION pt/ot may need placement social service for d/c planning Vital Signs: Date Time Temp Pulse Resp B/P (MAP) Pulse Ox O2 Delivery O2 Flow Rate FiO2 11/07/17 16:25 Room Air 11/07/17 15:01 36.6 77 18 109/74 (86) 91 Room Air 11/07/17 07:32 36.5 68 18 146/84 (104) 90 Room Air 11/07/17 07:15 Room Air 11/07/17 00:00 Room Air 11/06/17 23:32 88 18 123/85 94 Room Air 11/06/17 23:30 36.4 62 18 165/89 Room Air 11/06/17 22:37 66 18 116/75 92 Room Air 11/06/17 21:21 72 20 158/104 97 Room Air Lab Results: Results Past 24 Hours Test 11/07/17 06:20 11/07/17 08:51 Range/Units Urine Color DK YELLOW Urine Appearance CLOUDY CLEAR Urine pH 5.0 4.5-7.5 Urine Specific [place] 1.024 1.000-1.030 Urine Protein NEG NEG Urine Glucose (UA) NEG NEG Urine Ketones NEG NEG Urine Occult Blood NEG NEG Urine Nitrite NEG NEG Urine Bilirubin NEG NEG Urine Urobilinogen NEG NEG Urine Leukocyte Esterase MODERATE NEG Urine WBC (Auto) >30 0-5 /hpf Urine RBC (Auto) 5-10 0-4 /hpf Urine Hyaline Casts (Auto) 5-10 0-5 /lpf Urine Epithelial Cells (Auto) >30 0-5 /lpf Urine Bacteria (Auto) 1+ NEG White Blood Count 11.19 4.8-10.8 K/uL Red Blood Count 4.44 4.2-5.4 M/uL Hemoglobin 12.6 12.0-16.0 g/dL Hematocrit 39.1 37-47 % Mean Corpuscular Volume 88.1 80-100 fL Mean Corpuscular Hemoglobin 28.4 25-34 pg Mean Corpuscular Hemoglobin Concent 32.2 32-36 g/dl RDW Standard Deviation 50.2 36.4-46.3 fL RDW Coefficient of Variation 15.6 11.5-14.5 % Platelet Count 238 130-400 K/uL Mean Platelet Volume 11.4 7.4-10.4 fL Sodium Level 140 136-145 mmol/L Potassium Level 3.6 3.5-5.1 mmol/L Chloride Level 105 98-107 mmol/L Carbon Dioxide Level 26 21-32 mmol/L Anion Gap 9.0 3-11 mmol/L Blood Urea Nitrogen 23 7-18 mg/dl Creatinine 0.92 0.60-1.20 mg/dl Est Creatinine Clear Calc Drug Dose 35.7 ml/min Estimated GFR () 66.3 Estimated GFR (Non- 57.2 BUN/Creatinine Ratio 24.8 10-20 Random Glucose 121 70-99 mg/dl Calcium Level 8.8 8.5-10.1 mg/dl Microbiology Results 11/07/17 MRSA DNA Surveillance Screen - Final, Complete Specimen Negative for MRSA by DNA Probe 11/07/17 Urine Culture, Received Pending
[2017-11-07] MEDS: DOCUSATE SODIUM/SENNA 50/8.6MG TAB PO SCH (21:26)
[2017-11-07] MEDS ORDERED: SODIUM CHLORIDE 0.9% 1000ML 1,000 ML IV SCH (22:00)
[2017-11-07 23:18] VITALS: BP 108/66; PULSE 80; TEMP 36.6; O2SAT 93
[2017-11-08] MEDS: CHOLECALCIFEROL 1000 INTER.UNIT TAB PO SCH (07:21)
[2017-11-08] MEDS: ASPIRIN 81 MG ECTAB PO SCH (07:21)
[2017-11-08] MEDS: ATORVASTATIN 20 MG TAB PO SCH (07:21)
[2017-11-08] MEDS: CYANOCOBALAMIN 500 MCG TAB (VIT B-12) PO SCH (07:21)
[2017-11-08] MEDS: HYDROCHLOROTHIAZIDE 25 MG TAB PO SCH (07:22)
[2017-11-08] MEDS: PANTOprazole SOD 40 MG TAB PO SCH (07:22)
[2017-11-08] MEDS: VERAPAMIL HCL 120 MG TABCR PO SCH (07:22)
[2017-11-08] MEDS: HYDROCODONE/ACETAMIN 5/325MG TAB PO PRN (07:32)
[2017-11-08 07:50] VITALS: BP 127/78; PULSE 69; TEMP 36.8; O2SAT 93
[2017-11-08 08:00] VITALS: O2SAT 93
[2017-11-08] MEDS: CEFTRIAXONE SOD INJ 1 GM in DEXTROSE 5% ADD-VANTAGE 50ML 50 ML IV SCH (09:44)
[2017-11-08] MEDS: MoRPHine SULFATE 4 MG/ML 1 ML CARP\\VIAL IV PRN (14:07)
[2017-11-08 15:09] VITALS: BP 138/66; PULSE 75; TEMP 36.7; O2SAT 94
--- NOTE | 2017-11-08 19:17 | Progress Note ---
Medicine Progress Note Date & Time of Visit: Nov 08, 2017 at 16:00 . Subjective CC: Follow-up visit for fracture left humerus. HPI: Still having severe pain left arm. Morphine helps for a while. ROS: General- no fever, no chills Resp- no cough; no shortness of breath Cardiac- no chest pain, no edema GI- no nausea, no vomiting, no diarrhea - no dysuria, no difficulty voiding . Objective Last 8 Hrs Date Time Temp Pulse Resp B/P (MAP) Pulse Ox O2 Delivery O2 Flow Rate FiO2 11/08/17 15:15 Room Air 11/08/17 15:09 36.7 75 17 138/66 (90) 94 Room Air Physical Exam: General- no distress Head- laceration / ecchymoses left jehovah's witness Lungs- clear to auscultation; no respiratory distress Cardiovascular- RRR; no gallop; no JVD; no pretibial edema Abdomen- + bowel sounds, soft, nontender Extremities- LUE immobilized; no cyanosis; no calf tenderness; SCD's applied Neuro- alert, oriented Skin- warm & dry . Laboratory Results: Date/Time Source Procedure Growth Status 11/08/17 03:33 Urine,Catheterized Urine Culture Pending Received Assessment & Plan FRACTURE LEFT HUMERUS Orthopedics consulted. Nonsurgical management recommended. Titrate analgesics. PT / OT evals. Check vitamin D levels. HYPERTENSION Continue verapamil and HCTZ. GERD Continue PPI. VTE PROPHYLAXIS No anticoagulants due to head injury. SCD's. Ambulate as able. DISPOSITION To be determined. Family Medicine follow-up with Dr. Edwards. . Current Inpatient Medications: Current Inpatient Medications Medications (Trade) Dose Ordered Sig/Maricruz Route Start Time Stop Time Status Last Admin Dose Admin Morphine Sulfate (MoRPHine SULFATE INJ) 3 mg Q3H PRN IV 11/06/17 23:15 11/20/17 23:14 11/08/17 14:07 3 MG Acetaminophen/ Hydrocodone Bitart ([place] 5/325 Tab) 1 tab Q6H PRN PO 11/06/17 23:15 11/20/17 23:14 11/08/17 07:32 1 TAB Acetaminophen (Tylenol Tab) 650 mg Q4H PRN PO 11/06/17 23:15 12/06/17 23:14 11/07/17 16:32 650 MG Ondansetron HCl (Zofran Inj) 4 mg Q6H PRN IV 11/06/17 23:15 12/06/17 23:14 11/07/17 16:35 4 MG Naloxone HCl (Narcan Inj) 0.1 mg PRN PRN IV 11/06/17 23:15 12/06/17 23:14 Senna/Docusate Sodium (Senokot S Tab) 2 tab HS PO 11/07/17 21:00 12/07/17 20:59 11/07/17 21:26 2 TAB Polyethylene (Miralax Powder Packet) 17 gm DAILY PRN PO 11/06/17 23:15 12/06/17 23:14 Magnesium Hydroxide (Milk Of Magnesia Susp) 30 ml DAILY PRN PO 11/06/17 23:15 12/06/17 23:14 Bisacodyl (Dulcolax Supp) 10 mg DAILY PRN SC 11/06/17 23:15 12/06/17 23:14 Sodium Biphosphate/ Sodium Phosphate (Fleet Enema) 132 ml PRN PRN SC 11/06/17 23:15 Aspirin (Ecotrin Tab) 81 mg DAILY PO 11/07/17 09:00 12/07/17 08:59 11/08/17 07:21 81 MG Atorvastatin Calcium (Lipitor Tab) 20 mg DAILY PO 11/07/17 09:00 12/07/17 08:59 11/08/17 07:21 20 MG Cholecalciferol (Vitamin D Tab) 1,000 inter.unit DAILY PO 11/07/17 09:00 12/07/17 08:59 11/08/17 07:21 1,000 INTER.UNIT Cyanocobalamin (Vitamin B-12 Tab) 1,000 mcg DAILY PO 11/07/17 09:00 12/07/17 08:59 11/08/17 07:21 1,000 MCG Hydrochlorothiazide (Hydrochlorothiazide Tab) 12.5 mg DAILY PO 11/07/17 09:00 12/07/17 08:59 11/08/17 07:22 12.5 MG Pantoprazole Sodium (Protonix Tab) 40 mg QAM PO 11/07/17 09:00 12/07/17 08:59 11/08/17 07:22 40 MG Verapamil HCl (Calan-Sr Tab) 120 mg DAILY PO 11/07/17 09:00 12/07/17 08:59 11/08/17 07:22 120 MG Ceftriaxone Sodium 1 gm/ Dextrose 50 ml @ 100 mls/hr Q24H IV 11/07/17 10:00 11/12/17 09:59 11/08/17 09:44 100 MLS/HR
[2017-11-08] MEDS: DOCUSATE SODIUM/SENNA 50/8.6MG TAB PO SCH (20:38)
[2017-11-08 23:16] VITALS: BP 129/76; PULSE 78; TEMP 36.7; O2SAT 94
[2017-11-09 06:08] LABS: HEMATOCRIT 36.1 % (37-47); HEMOGLOBIN 11.5 g/dL (12.0-16.0); MEAN CELL VOLUME 87.6 fL (80-100); MEAN CORPUSCULAR HEMOGLOBIN 27.9 pg (25-34); MEAN CORPUSCULAR HGB CONC 31.9 g/dl (32-36); MEAN PLATELET VOLUME 11.2 fL (7.4-10.4); PLATELET COUNT 211 K/uL (130-400); RED CELL DISTRIBUTION WIDTH CV 15.4 % (11.5-14.5); RED CELL DISTRIBUTION WIDTH SD 49.3 fL (36.4-46.3); WHITE BLOOD COUNT 8.91 K/uL (4.8-10.8)
[2017-11-09 06:38] LABS: CALCIUM 8.7 mg/dl (8.5-10.1); CREATININE 0.79 mg/dl (0.60-1.20); POTASSIUM 3.4 mmol/L (3.5-5.1)
[2017-11-09] MEDS: HYDROCODONE/ACETAMIN 5/325MG TAB PO PRN ×2 (07:37→15:30)
[2017-11-09 07:52] VITALS: BP 144/78; PULSE 77; TEMP 37; O2SAT 91
[2017-11-09] MEDS: ASPIRIN 81 MG ECTAB PO SCH (08:28)
[2017-11-09] MEDS: CHOLECALCIFEROL 1000 INTER.UNIT TAB PO SCH (08:29)
[2017-11-09] MEDS: ATORVASTATIN 20 MG TAB PO SCH (08:29)
[2017-11-09] MEDS: CYANOCOBALAMIN 500 MCG TAB (VIT B-12) PO SCH (08:30)
[2017-11-09] MEDS: PANTOprazole SOD 40 MG TAB PO SCH (08:31)
[2017-11-09] MEDS: HYDROCHLOROTHIAZIDE 25 MG TAB PO SCH (08:32)
[2017-11-09] MEDS: POTASSIUM CHLORIDE 20 MEQ TABCR PO SCH (08:33)
[2017-11-09] MEDS: VERAPAMIL HCL 120 MG TABCR PO SCH (08:34)
[2017-11-09] MEDS: CEFTRIAXONE SOD INJ 1 GM in DEXTROSE 5% ADD-VANTAGE 50ML 50 ML IV SCH (11:02)
[2017-11-09 15:32] VITALS: BP 129/74; PULSE 86; TEMP 37.1; O2SAT 90
[2017-11-09] MEDS ORDERED: POTASSIUM CHLORIDE 20 MEQ TABCR PO ONE (18:00)
[2017-11-09] MEDS: DOCUSATE SODIUM/SENNA 50/8.6MG TAB PO SCH (19:48)
--- NOTE | 2017-11-09 20:22 | Progress Note ---
Medicine Progress Note Date & Time of Visit: Nov 09, 2017 at 15:30 . Subjective CC: Follow-up visit for fracture left humerus. HPI: Severe pain left arm. Otherwise, doing well. ROS: General- no fever, no chills Resp- no cough; no shortness of breath Cardiac- no chest pain, no edema GI- no nausea, no vomiting, no diarrhea - no difficulty voiding . Objective Last 8 Hrs Date Time Temp Pulse Resp B/P (MAP) Pulse Ox O2 Delivery O2 Flow Rate FiO2 11/09/17 15:32 37.1 86 18 129/74 (92) 90 Room Air 11/09/17 15:20 Room Air Physical Exam: General- no distress Head- laceration / ecchymoses left jainism Lungs- clear to auscultation; no respiratory distress Cardiovascular- RRR; no gallop; no JVD; no pretibial edema Abdomen- + bowel sounds, soft, nontender Extremities- LUE immobilized; no cyanosis; no calf tenderness; SCD's applied Neuro- alert, oriented Skin- warm & dry . Laboratory Results: Last 24 Hours Test 11/09/17 05:41 White Blood Count 8.91 K/uL Red Blood Count 4.12 M/uL Hemoglobin 11.5 g/dL Hematocrit 36.1 % Mean Corpuscular Volume 87.6 fL Mean Corpuscular Hemoglobin 27.9 pg Mean Corpuscular Hemoglobin Concent 31.9 g/dl RDW Standard Deviation 49.3 fL RDW Coefficient of Variation 15.4 % Platelet Count 211 K/uL Mean Platelet Volume 11.2 fL Sodium Level 139 mmol/L Potassium Level 3.4 mmol/L Chloride Level 102 mmol/L Carbon Dioxide Level 29 mmol/L Anion Gap 8.0 mmol/L Blood Urea Nitrogen 20 mg/dl Creatinine 0.79 mg/dl Est Creatinine Clear Calc Drug Dose 41.6 ml/min Estimated GFR () 79.7 Estimated GFR (Non- 68.7 BUN/Creatinine Ratio 25.4 Random Glucose 105 mg/dl Calcium Level 8.7 mg/dl 25-Hydroxy Vitamin D Total 9.8 ng/ml Assessment & Plan FRACTURE LEFT HUMERUS Orthopedics consulted. Nonsurgical management recommended. Titrate analgesics. PT / OT evals. OSTEOPOROSIS Vitamin D level 9. Increase vitamin D supplementation to 50,000 units / week. HYPERTENSION Continue verapamil and HCTZ. GERD Continue PPI. VTE PROPHYLAXIS No anticoagulants due to head injury. SCD's. Ambulate as able. DISPOSITION Family requesting referral to [facility] for inpatient rehab. Family Medicine follow-up with Dr. Edwards. . Current Inpatient Medications: Current Inpatient Medications Medications (Trade) Dose Ordered Sig/Maricruz Route Start Time Stop Time Status Last Admin Dose Admin Morphine Sulfate (MoRPHine SULFATE INJ) 3 mg Q3H PRN IV 11/06/17 23:15 11/20/17 23:14 11/08/17 14:07 3 MG Acetaminophen/ Hydrocodone Bitart (Scio 5/325 Tab) 1 tab Q6H PRN PO 11/06/17 23:15 11/20/17 23:14 11/09/17 15:30 1 TAB Acetaminophen (Tylenol Tab) 650 mg Q4H PRN PO 11/06/17 23:15 12/06/17 23:14 11/07/17 16:32 650 MG Ondansetron HCl (Zofran Inj) 4 mg Q6H PRN IV 11/06/17 23:15 12/06/17 23:14 11/07/17 16:35 4 MG Naloxone HCl (Narcan Inj) 0.1 mg PRN PRN IV 11/06/17 23:15 12/06/17 23:14 Senna/Docusate Sodium (Senokot S Tab) 2 tab HS PO 11/07/17 21:00 12/07/17 20:59 11/09/17 19:48 1 TAB Polyethylene (Miralax Powder Packet) 17 gm DAILY PRN PO 11/06/17 23:15 12/06/17 23:14 Magnesium Hydroxide (Milk Of Magnesia Susp) 30 ml DAILY PRN PO 11/06/17 23:15 12/06/17 23:14 Bisacodyl (Dulcolax Supp) 10 mg DAILY PRN [place] 11/06/17 23:15 12/06/17 23:14 Sodium Biphosphate/ Sodium Phosphate (Fleet Enema) 132 ml PRN PRN [place] 11/06/17 23:15 Aspirin (Ecotrin Tab) 81 mg DAILY PO 11/07/17 09:00 12/07/17 08:59 11/09/17 08:28 81 MG Atorvastatin Calcium (Lipitor Tab) 20 mg DAILY PO 11/07/17 09:00 12/07/17 08:59 11/09/17 08:29 20 MG Cholecalciferol (Vitamin D Tab) 1,000 inter.unit DAILY PO 11/07/17 09:00 12/07/17 08:59 11/09/17 08:29 1,000 INTER.UNIT Cyanocobalamin (Vitamin B-12 Tab) 1,000 mcg DAILY PO 11/07/17 09:00 12/07/17 08:59 11/09/17 08:30 1,000 MCG Hydrochlorothiazide (Hydrochlorothiazide Tab) 12.5 mg DAILY PO 11/07/17 09:00 12/07/17 08:59 11/09/17 08:32 12.5 MG Pantoprazole Sodium (Protonix Tab) 40 mg QAM PO 11/07/17 09:00 12/07/17 08:59 11/09/17 08:31 40 MG Verapamil HCl (Calan-Sr Tab) 120 mg DAILY PO 11/07/17 09:00 12/07/17 08:59 11/09/17 08:34 120 MG Ceftriaxone Sodium 1 gm/ Dextrose 50 ml @ 100 mls/hr Q24H IV 11/07/17 10:00 11/12/17 09:59 11/09/17 11:02 100 MLS/HR Potassium Chloride (Klor-Con Tab) 20 meq QAM PO 11/09/17 09:00 12/09/17 08:59 11/09/17 08:33 20 MEQ
[2017-11-09] MEDS ORDERED: OXYCODONE HCL SOLN 5 MG/5 ML UDC PO PRN ×2 (20:30)
[2017-11-09] MEDS: ACETAMINOPHEN SOLN 650MG/20.3 ML UDC PO SCH (21:00)
[2017-11-09 23:47] VITALS: BP 120/74; PULSE 74; TEMP 36.6; O2SAT 90
[2017-11-10 06:50] VITALS: BP 143/89; PULSE 80; TEMP 37; O2SAT 91
--- NOTE | 2017-11-10 08:10 | DIAGNOSTIC IMAGING REPORT ---
L UPPER EXTREMITY WITHOUT HISTORY: 86 years-old Female r/o humeral head split acute fracture of the left proximal humerus COMPARISON: Left shoulder radiographs 11/06/2017 TECHNIQUE: Multiple axial CT images of the left upper extremity were obtained without contrast. A dose lowering technique was used consistent with the principals of SALONI. FINDINGS: There is an acute comminuted fracture of the left humeral neck and proximal diaphyseal portion of the left humerus. There is approximately 70 degrees apex volar angulation of the fracture with 12 mm anterior and 5 mm medial displacement. There is approximately 1.4 cm impaction. Humeral head, greater and lesser tuberosities appear intact. The glenoid, coracoid distal clavicle and glenohumeral joints appear preserved. The bones appear moderately demineralized. Moderate to extensive calcifications about the glenohumeral joint are compatible with calcific bursitis. Moderate joint effusion with moderate soft tissue swelling about the left shoulder and left upper extremity. No pneumothorax. IMPRESSION: 1. Acute comminuted angulated and displaced fracture of the left proximal humeral diaphysis and humeral neck as above. Humeral head, greater and lesser tuberosities appear preserved. 2. Moderate joint effusion with moderate soft tissue swelling. 3. 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 4. Osteopenic appearance of the bones. The above report was generated using voice recognition software. It may contain grammatical, syntax or spelling errors. Electronically signed by: José Miguel Davis M.D. 11/07/2017 1:39 PM Dictated Date/Time: 11/07/2017 1:33 PM
[2017-11-10] MEDS: ACETAMINOPHEN SOLN 650MG/20.3 ML UDC PO SCH ×2 (08:15→14:15)
[2017-11-10] MEDS: VERAPAMIL HCL 120 MG TABCR PO SCH (08:16)
[2017-11-10] MEDS: ASPIRIN 81 MG ECTAB PO SCH (08:16)
[2017-11-10] MEDS: CYANOCOBALAMIN 500 MCG TAB (VIT B-12) PO SCH (08:16)
[2017-11-10] MEDS: PANTOprazole SOD 40 MG TAB PO SCH (08:16)
[2017-11-10] MEDS: HYDROCHLOROTHIAZIDE 25 MG TAB PO SCH (08:17)
[2017-11-10] MEDS: ATORVASTATIN 20 MG TAB PO SCH (08:18)
[2017-11-10] MEDS: POTASSIUM CHLORIDE 20 MEQ TABCR PO SCH (08:18)
[2017-11-10] MEDS ORDERED: ERGOCALCIFEROL 50,000 INTER.UNIT CAP PO SCH (12:00)
[2017-11-10 13:14] LABS: CREATININE 0.79 mg/dl (0.60-1.20); POTASSIUM 3.7 mmol/L (3.5-5.1)
[2017-11-10 14:57] VITALS: BP 123/69; PULSE 81; TEMP 36.7; O2SAT 94
--- NOTE | 2017-11-10 15:06 | Progress Note ---
Medicine Progress Note Date & Time of Visit: Nov 10, 2017 at 14:30 . Subjective CC: Follow-up visit for fracture left humerus. HPI: Pain left arm not as severe. Constipated. Otherwise, doing well. ROS: General- no fever, no chills Resp- no cough; no shortness of breath Cardiac- no chest pain, no edema GI- no nausea, no vomiting, no diarrhea - no difficulty voiding . Objective Last 8 Hrs Date Time Temp Pulse Resp B/P (MAP) Pulse Ox O2 Delivery O2 Flow Rate FiO2 11/10/17 14:57 36.7 81 18 123/69 (87) 94 Room Air 11/10/17 08:00 Room Air Physical Exam: General- no distress Head- laceration / ecchymoses left jew Lungs- clear to auscultation; no respiratory distress Cardiovascular- RRR; no gallop; no JVD; no pretibial edema Abdomen- + bowel sounds, soft, nontender Extremities- LUE immobilized; no cyanosis; no calf tenderness; SCD's applied Neuro- alert, oriented Skin- warm & dry . Laboratory Results: Last 24 Hours Test 11/10/17 12:37 Sodium Level 138 mmol/L Potassium Level 3.7 mmol/L Chloride Level 100 mmol/L Carbon Dioxide Level 29 mmol/L Anion Gap 9.0 mmol/L Blood Urea Nitrogen 17 mg/dl Creatinine 0.79 mg/dl Est Creatinine Clear Calc Drug Dose 41.6 ml/min Estimated GFR () 79.7 Estimated GFR (Non- 68.7 BUN/Creatinine Ratio 21.9 Random Glucose 97 mg/dl Calcium Level 9.0 mg/dl Assessment & Plan FRACTURE LEFT HUMERUS X-ray demonstrated mildly displaced fracture of humeral neck. Orthopedics consulted. CT demonstrated acute comminuted angulated and displaced fracture of left proximal humeral diaphysis and humeral neck. Nonsurgical management recommended. Titrate analgesics. PT / OT evals. OSTEOPOROSIS Vitamin D level 9. Increase vitamin D supplementation to 50,000 units / week. HYPERTENSION Continue verapamil and HCTZ. GERD Continue PPI. LACERATION 1 cm laceration left lateral forehead repaired in ED with 2 simple interrupted nylon sutures. Sutures should be removed in around 7 days (around 11/13/17). VTE PROPHYLAXIS No anticoagulants initially due to head injury. SCD's. Should be able to transition to low dose SQ heparin. Ambulate as able. DISPOSITION Family requesting referral to [facility] for inpatient rehab. Family Medicine follow-up with Dr. Edwards. Orthopedics follow-up with Dr. Dias. . Current Inpatient Medications: Current Inpatient Medications Medications (Trade) Dose Ordered Sig/Maricruz Route Start Time Stop Time Status Last Admin Dose Admin Ondansetron HCl (Zofran Inj) 4 mg Q6H PRN IV 11/06/17 23:15 12/06/17 23:14 11/07/17 16:35 4 MG Naloxone HCl (Narcan Inj) 0.1 mg PRN PRN IV 11/06/17 23:15 12/06/17 23:14 Senna/Docusate Sodium (Senokot S Tab) 2 tab HS PO 11/07/17 21:00 12/07/17 20:59 11/09/17 19:48 1 TAB Polyethylene (Miralax Powder Packet) 17 gm DAILY PRN PO 11/06/17 23:15 12/06/17 23:14 Magnesium Hydroxide (Milk Of Magnesia Susp) 30 ml DAILY PRN PO 11/06/17 23:15 12/06/17 23:14 Bisacodyl (Dulcolax Supp) 10 mg DAILY PRN [place] 11/06/17 23:15 12/06/17 23:14 Sodium Biphosphate/ Sodium Phosphate (Fleet Enema) 132 ml PRN PRN [place] 11/06/17 23:15 Aspirin (Ecotrin Tab) 81 mg DAILY PO 11/07/17 09:00 12/07/17 08:59 11/10/17 08:16 81 MG Atorvastatin Calcium (Lipitor Tab) 20 mg DAILY PO 11/07/17 09:00 12/07/17 08:59 11/10/17 08:18 20 MG Cyanocobalamin (Vitamin B-12 Tab) 1,000 mcg DAILY PO 11/07/17 09:00 12/07/17 08:59 11/10/17 08:16 1,000 MCG Hydrochlorothiazide (Hydrochlorothiazide Tab) 12.5 mg DAILY PO 11/07/17 09:00 12/07/17 08:59 11/10/17 08:17 12.5 MG Pantoprazole Sodium (Protonix Tab) 40 mg QAM PO 11/07/17 09:00 3/11/18 08:59 11/10/17 08:16 40 MG Verapamil HCl (Calan-Sr Tab) 120 mg DAILY PO 11/07/17 09:00 12/07/17 08:59 11/10/17 08:16 120 MG Potassium Chloride (Klor-Con Tab) 20 meq QAM PO 11/09/17 09:00 12/09/17 08:59 11/10/17 08:18 20 MEQ Acetaminophen (Tylenol Soln) 650 mg TID PO 11/09/17 21:00 12/09/17 20:59 11/10/17 14:15 650 MG Oxycodone HCl (Roxicodone Soln) 5 mg Q4H PRN PO 11/09/17 20:30 11/23/17 20:29 Oxycodone HCl (Roxicodone Soln) 10 mg Q4H PRN PO 11/09/17 20:30 11/23/17 20:29 Ergocalciferol (Vitamin D Cap) 50,000 interunit Mo@1200 PO 11/10/17 12:00 12/10/17 11:59 11/10/17 14:15 50,000 INTERUNIT
[2017-11-10] MEDS ORDERED: VERA120T2 PO (15:12)
[2017-11-10 15:49] VITALS: BP 123/69; PULSE 81; TEMP 36.7; O2SAT 94
[2017-11-10] MEDS ORDERED: ERGO500011 PO (15:58)
[2017-11-10] MEDS ORDERED: ACET325C PO (15:58)
[2017-11-10] MEDS ORDERED: CALC500C3 PO (15:58)
[2017-11-10] MEDS ORDERED: OXYC1TAB3 PO (15:58)
--- NOTE | 2017-11-10 16:08 | Discharge Instructions ---
Discharge Instructions Date of Service Nov 10, 2017. Admission Reason for Admission: fracture left humerus . Discharge Discharge Diagnosis / Problem: fracture left humerus Discharge Goals Goal(s): Decrease discomfort, Improve function Activity Recommendations Activity Level: Assistance Required Therapies: Physical Therapy, Occupational Therapy . Additional Information Patient informed of condition: Yes Advance Directives: Yes DNR: No Level of Care: Acute Rehab Communicable Disease: No Prognosis: Stable Woodson Catheter: No Instructions / Follow-Up Instructions / Follow-Up APPOINTMENTS ORTHOPEDICS Dr. Dias 1-2 weeks Please call his office for appointment. FAMILY MEDICINE Dr. Edwards Please arrange for an appointment within 1 week of discharge from your facility. Thank you for receiving this patient in transfer. Please call if you have any questions. Greg Glaser . Current Hospital Diet Patient's current hospital diet: AHA Diet (Heart Healthy) Discharge Diet Recommended Diet: AHA Diet (Heart Healthy) Pending Studies Studies pending at discharge: no Physician Orders On Transfer Special Precautions: fall precautions . Vital Signs: routine . Weigh: routine . Additional Orders: immobilizer for LUE . Medical Emergencies . Who to Call and When: Medical Emergencies: If at any time you feel your situation is an emergency, please call 911 immediately. . Non-Emergent Contact Non-Emergency issues call your: Primary Care Provider, Hospital Doctor, Surgeon (Orthopedics) . . "Provider Documentation" section prepared by Greg Glaser. . Core Measure Problem Core Measures: None [place] Drug Monitoring Program Search Results: patient reviewed within database, no issues identified
--- NOTE | 2017-11-10 16:11 | Discharge Summary ---
Discharge Summary Date of Service Nov 10, 2017. Discharge Summary Admission Date: Nov 06, 2017 at 22:20 Discharge Date: Nov 10, 2017 Discharge Disposition: Rehab Principal Diagnosis: fracture left proximal humerus OTHER ACUTE DIAGNOSES: laceration left forehead vitamin D deficiency . Secondary Diagnoses/Problems: Chronic and Resolved Medical Problems: (1) Cerebral aneurysm, nonruptured Status: Chronic (2) Dyslipidemia Status: Chronic (3) GERD (gastroesophageal reflux disease) Status: Chronic (4) HTN (hypertension) Status: Chronic (5) Osteoarthrosis Status: Chronic (6) Subarachnoid hemorrhage Status: Resolved . Consultations: Orthopedics with Dr. Dias. . Medication Reconciliation New Medications: Acetaminophen (Tylenol) 325 Mg Cap 325 MG PO Q4H PRN for mild pain for 30 Days Calcium Carbonate (Tums) 500 Mg Chew 500 MG PO BID for 30 Days, BTL Heparin Sod (Porcine) (Heparin Sodium) 5,000 Unit/0.5 Ml Inj 5000 UNITS SQ BID for 30 Days, SYR Please continue until ambulatory, then stop. Oxycodone Ir (Roxicodone Ir) 5 Mg Tab 5 MG PO Q6H PRN for moderate pain for 30 Days Oxycodone Ir (Roxicodone Ir) 5 Mg Tab 10 MG PO Q6H PRN for severe pain for 30 Days Ergocalciferol (Vitamin D 53598 Unit) 50,000 Unit Cap 34261 INTERUNIT PO Mo@1200 for 30 Days, CAP weekly on Mondays x 8 weeks (then resume previous dose of Vitamin D 1000 units daily) Continued Medications: Albuterol Sulfate (Proair Respiclick) 108 Mcg/Act Aer 2 PUFF INH QID PRN for SOB/Wheezing Aspirin (Aspirin Ec) 81 Mg Tab 81 MG PO DAILY Atorvastatin (Lipitor) 20 Mg Tab 20 MG PO DAILY, TAB Cyanocobalamin (Vitamin B-12) 1,000 Mcg Tab 1000 MCG PO DAILY, 0 Refills Hydrochlorothiazide (Hctz) 25 Mg Tab 12.5 MG PO DAILY, TAB Omeprazole (Prilosec) 20 Mg Capcr 20 MG PO DAILY Verapamil Sust Rel (Calan Sr Ext Rel) 120 Mg Tabcr 120 MG PO DAILY, TAB Discontinued Medications: Cholecalciferol (Vitamin D3) 1,000 Unit Tab 1 TAB PO DAILY for 90 Days, #90 TAB 3 Refills Admission Information HPI (per Admitting provider): 86 year old female who presents to the ED after suffering a fall and developing left shoulder pain and forehead laceration. Patient reports she walking around her apartment getting ready for bingo when she fell. She was using her walker. She is unsure how she fell. She did not loose consciousness. No associated lightheadedness, dizziness, chest pain, or shortness of breath. She denies loss of bowel or bladder function. She was able to use her life alert button to call for help. Patient reports she has been feeling well recently. No abdominal pain , nausea, vomiting, or diarrhea. She denies fever and chills. No urinary symptoms. In the ED, patient is found to have a mildly displaced left femoral neck fracture. Labs are unremarkable. Vitals are stable. . Physical Exam (per Admitting): General Appearance: WD/WN, no apparent distress Head: normocephalic, + evidence of trama (small laceration to left temporal area with sutures in place) Eyes: normal inspection, EOMI, sclerae normal ENT: hearing grossly normal, + pertinent finding (mucous membranes moist) Neck: supple, no JVD, trachea midline Respiratory/Chest: lungs clear, normal breath sounds, no respiratory distress Cardiovascular: regular rate, rhythm, no edema, normal peripheral pulses Abdomen/GI: normal bowel sounds, non tender, soft, no organomegaly Extremities/Musculoskelatal: no calf tenderness, normal capillary refill, + pertinent finding (left shoulder pain with minimal movement, LUE in sling, CSM checks intact to LUE) Neurologic/Psych: no motor/sensory deficits, alert, normal mood/affect, oriented x 3 Skin: normal color, warm/dry Hospital Course FRACTURE LEFT HUMERUS X-ray demonstrated mildly displaced fracture of humeral neck. Orthopedics consulted. CT demonstrated acute comminuted angulated and displaced fracture of left proximal humeral diaphysis and humeral neck. Nonsurgical management recommended. Titrate analgesics. PT / OT evals. OSTEOPOROSIS Vitamin D level 9. Increase vitamin D supplementation to 50,000 units / week. HYPERTENSION Continue verapamil and HCTZ. GERD Continue PPI. LACERATION 1 cm laceration left lateral forehead repaired in ED with 2 simple interrupted nylon sutures. Sutures should be removed in around 7 days (around 11/13/17). VTE PROPHYLAXIS No anticoagulants initially due to head injury. SCD's. Should be able to transition to low dose SQ heparin. Ambulate as able. DISPOSITION Family requesting referral to [facility] for inpatient rehab. Family Medicine follow-up with Dr. Edwards. Orthopedics follow-up with Dr. Dias. . Total time spent on discharge = 40 min. This includes examination of the patient, discharge planning, medication reconciliation, and communication with other providers. . Discharge Instructions Date of Service Nov 10, 2017. Admission Reason for Admission: fracture left humerus . Discharge Discharge Diagnosis / Problem: fracture left humerus Discharge Goals Goal(s): Decrease discomfort, Improve function Activity Recommendations Activity Level: Assistance Required Therapies: Physical Therapy, Occupational Therapy . Additional Information Patient informed of condition: Yes Advance Directives: Yes DNR: No Level of Care: Acute Rehab Communicable Disease: No Prognosis: Stable Woodson Catheter: No Instructions / Follow-Up Instructions / Follow-Up APPOINTMENTS ORTHOPEDICS Dr. Dias 1-2 weeks Please call his office for appointment. FAMILY MEDICINE Dr. Edwards Please arrange for an appointment within 1 week of discharge from your facility. Thank you for receiving this patient in transfer. Please call if you have any questions. Greg Glaser . Current Hospital Diet Patient's current hospital diet: AHA Diet (Heart Healthy) Discharge Diet Recommended Diet: AHA Diet (Heart Healthy) Pending Studies Studies pending at discharge: no Physician Orders On Transfer Special Precautions: fall precautions . Vital Signs: routine . Weigh: routine . Additional Orders: immobilizer for LUE . Medical Emergencies . Who to Call and When: Medical Emergencies: If at any time you feel your situation is an emergency, please call 911 immediately. . Non-Emergent Contact Non-Emergency issues call your: Primary Care Provider, Hospital Doctor, Surgeon (Orthopedics) . . "Provider Documentation" section prepared by Greg Glaser. . Core Measure Problem Core Measures: None [place] Drug [place] Search Results: patient reviewed within database, no issues identified . Additional Copies To Gurwinder Edwards M.D.
[2017-11-10] MEDS ORDERED: HPRIS5M SQ (16:13)
== END 2017-11-10 16:40 | DRG 563 ==
LOC: EDBD 18:54 → C.EDC 18:55 → C.MSW 22:20 → ENRESERV 22:44
PROVIDERS: ADMIT Hospitalist; ATTEND Hospitalist
PROC: 0HQ1XZZ Repair Face Skin, External Approach (ICD-10-PCS; principal; 2017-11-06)
DX: S42.292A Other displaced fracture of upper end of left humerus, initial encounter for closed fracture (principal); S01.81XA Laceration without foreign body of other part of head, initial encounter; R40.2412 Glasgow coma scale score 13-15, at arrival to emergency department; E55.9 Vitamin D deficiency, unspecified; I10 Essential (primary) hypertension; E78.5 Hyperlipidemia, unspecified; K21.9 Gastro-esophageal reflux disease without esophagitis; M81.0 Age-related osteoporosis without current pathological fracture; Z79.899 Other long term (current) drug therapy; Z79.82 Long term (current) use of aspirin; Z91.81 History of falling; Z82.49 Family history of ischemic heart disease and other diseases of the circulatory system; Z84.89 Family history of other specified conditions; W18.30XA Fall on same level, unspecified, initial encounter; Y92.039 Unspecified place in apartment as the place of occurrence of the external cause; Y99.8 Other external cause status

== ENCOUNTER 2017-11-21 09:28 | Inpatient (IN) | payer OTHER ==
--- NOTE | 2017-11-20 15:02 | HISTORY & PHYSICAL EXAMINATION ---
DATE OF ADMISSION: 11/21/2017 CHIEF COMPLAINT: Left shoulder pain. HISTORY OF PRESENT ILLNESS: The patient is an 86-year-old female, who presented 2 weeks ago into the Emergency Room after sustaining a fall due to loss of balance. She denies any loss of consciousness. She did bump her head and caused a small laceration to her left forehead, but she denied any type of lightheadedness or dizziness prior to the fall. X-rays were taken of her shoulder at that time that demonstrated a left proximal humerus fracture that was in decent alignment. She shows up to the office 2 weeks after her hospitalization with new x-rays that demonstrated a displaced proximal humerus fracture. PAST MEDICAL HISTORY: Significant for cerebral aneurysm, dyslipidemia, GERD, hypertension, osteoporosis, history of subarachnoid hemorrhage, history of lower extremity DVT, osteoarthritis, GERD and hypertension. PAST SURGICAL HISTORY: Significant for colonoscopy and polypectomy. FAMILY HISTORY: Noncontributory due to the patient's age. SOCIAL HISTORY: She resides in the retirement facility. She denies alcohol use. She denies smoking or tobacco use. She denies IV or illegal drug use. MEDICATIONS: Aspirin 81 mg p.o. daily, atorvastatin 20 mg p.o. daily, vitamin D3 one tab p.o. daily, vitamin B12 of 1000 mcg p.o. daily, hydrochlorothiazide 12.5 mg p.o. daily, omeprazole 20 mg p.o. daily, verapamil 120 mg p.o. daily, and albuterol 2 puffs inhaled q.i.d. p.r.n. ALLERGIES: DOXYCYCLINE. REVIEW OF SYSTEMS: She denies headaches, fevers, chills, double vision, blurry vision, sore throat, cough, chest pain, nausea, vomiting, diarrhea, constipation, numbness, tingling, tired, urinary difficulties, thoughts to harm herself or harm others or depression. She does have joint pain and stiffness of her left shoulder. PHYSICAL EXAMINATION: GENERAL APPEARANCE: The patient is an 86-year-old female, sitting in her wheelchair in no acute distress. She is well dressed and well nourished. She is awake, alert and oriented x3. VITAL SIGNS: She is 5 feet tall, weight 112 pounds, and blood pressure 100/62. HEENT: Normocephalic and atraumatic. Extraocular movements are intact. Mucosa is moist. No septal deviation. NECK: Supple with no lymphadenopathy. No JVD and no thyromegaly. HEART: Regular rate and rhythm. No murmurs or gallops. LUNGS: Clear to auscultation. No wheezing or rhonchi. ABDOMEN: Soft, nontender, and nondistended. Normal bowel sounds. No hepatosplenomegaly. EXTREMITIES: Paying particular attention to the left upper extremity, she does have ecchymosis diffusely throughout her upper extremity. She has decreased range of motion and decreased strength due to pain. She has diffuse pain upon palpation as well. NEUROLOGIC: Cranial nerves II-XII were intact. Pulses were compared bilaterally and were equal. IMAGING: X-rays, 3 views of the x-ray of her left shoulder demonstrated a displaced proximal humerus fracture. IMPRESSION: Left displaced proximal humerus fracture. PLAN: The patient is scheduled for an ORIF of the left proximal humerus fracture. Risks and benefits to surgery were discussed and included, but not limited to infection, DVT, increased pain and stiffness and a post-surgical osteoarthritis, damage to blood vessels, damage to nerves, anesthesia risks and were all discussed with the patient. She understands these risks and she wishes to proceed. All questions were answered to her satisfaction. No DVT prophylaxis is needed. PATRICIO
[2017-11-20 19:15] LABS: BASO % 0.2 %; BASO ABS # 0.02 K/uL (0-0.2); EOS % 0.9 %; EOS ABS # 0.09 K/uL (0-0.5); HEMATOCRIT 43.1 % (37-47); IG# 0.04 K/uL (0.00-0.02); LYMPH % 16.5 %; LYMPH ABS # 1.68 K/uL (1.2-3.4); MEAN CELL VOLUME 88.9 fL (80-100); MEAN CORPUSCULAR HEMOGLOBIN 28.9 pg (25-34); MEAN CORPUSCULAR HGB CONC 32.5 g/dl (32-36); MEAN PLATELET VOLUME 11.2 fL (7.4-10.4); MONO % 4.2 %; MONO ABS # 0.43 K/uL (0.11-0.59); NEUT % 77.8 %; NEUT ABS # 7.94 K/uL (1.4-6.5); PLATELET COUNT 400 K/uL (130-400); RED CELL DISTRIBUTION WIDTH SD 51.4 fL (36.4-46.3)
[2017-11-20 19:27] LABS: PTT PATIENT 24.3 SECONDS (21.0-31.0)
[2017-11-20 19:48] LABS: BLOOD UREA NITROGEN 23 mg/dl (7-18); CALCIUM 9.6 mg/dl (8.5-10.1); CARBON DIOXIDE 27 mmol/L (21-32); CREATININE 1.01 mg/dl (0.60-1.20); GLUCOSE 202 mg/dl (70-99); POTASSIUM 4.1 mmol/L (3.5-5.1); SODIUM 139 mmol/L (136-145)
[~2017-11-21] VITALS: Ht 152.4 cm; Wt 50.0 kg
[2017-11-21] VITALS (7 sets, daily range): BP systolic 90–140; BP diastolic 57–76; PULSE 65–89; TEMP 36.4–36.7; O2SAT 91–97; Ht 152.4 cm; Wt 50.0 kg
[~2017-11-21 09:28] MED LIST changes: +ACET325C PO; +ALBU18002 INH; -ALBU1AER9 PO; -ALEN70TA2 PO; -ASPEC81 PO; +ASPI81TA28 PO; +BUPIVACAINE 0.25% 30 ML VIAL ONE; +CALC500C3 PO; +CEFAZOLIN 1000MG IV PUSH 7.5 ML IV SCH; -CHOL100010 PO; +CLONIDINE HCL 100 MCG/ML SYRINGE ONE; +ERGO500011 PO; +EpINEphrine INJ 1MG/ML AMP 1 MG/ML AMP ONE; -FERR325T5 PO; +HPRIS5M SQ; +LACTATED RINGER'S 1000ML 1,000 ML IV SCH; -MECL1TAB40 PO; -MULTTAB58 PO; +OXYC1TAB3 PO; +ROPIVACAINE 0.5% 5 MG/ML 30 ML VIAL ONE; -VERA120C3 PO; +VERA120T2 PO
[2017-11-21] MEDS ORDERED: FLUMAZENIL 0.1 MG/1 ML 10 ML VIAL IV PRN (12:45)
[2017-11-21] MEDS ORDERED: ONDANSETRON INJ 2 MG/ML 2 ML VIAL IV PRN ×2 (12:45→15:00)
[2017-11-21] MEDS ORDERED: NALOXONE HCL 0.4 MG/1 ML VIAL/CARP IV PRN (12:45)
[2017-11-21] MEDS ORDERED: LABETALOL HCL IV 5 MG/ML 20ML IV PRN (12:45)
[2017-11-21] MEDS ORDERED: MEPERIDINE HCL 25 MG/ML CARP IV PRN (12:45)
[2017-11-21] MEDS ORDERED: ATROPINE SULFATE 0.1 MG/ML 5ML SYR IV PRN (12:45)
[2017-11-21] MEDS ORDERED: HYDROmorphone INJ 2 MG/ML SYR/VIAL IV PRN (12:45)
[2017-11-21] MEDS ORDERED: FENTANYL CITRATE INJ 50 MCG/1 ML 2 ML VIAL IV PRN (12:45)
[2017-11-21] MEDS ORDERED: EpHEDrine SULFATE INJ 50 MG/ML AMP IV PRN (12:45)
[2017-11-21] MEDS ORDERED: PHENYLEPHRINE 100MCG/ML 5ML SYR IV PRN (12:45)
[2017-11-21] MEDS ORDERED: ESMOLOL HCL 10 MG/ML 10 ML VIAL ONE (12:52)
--- NOTE | 2017-11-21 12:54 | History & Physical Bridge Note ---
H&P Re-Evaluation Bridge Note: I have examined the patient, reviewed the History & Physical and in the interval since the performance of the History & Physical I have noted the following changes of clinical significance: No changes noted
[2017-11-21] MEDS ORDERED: PROPOFOL IV EMULSION 10 MG/ML 20 ML VIAL IV ONE (13:00)
[2017-11-21] MEDS ORDERED: SUCCINYLCHOLINE 100MG/5ML SYR IV ONE (13:20)
[2017-11-21] MEDS ORDERED: LIDOCAINE HCL 2% 2 ML VIAL (20MG/ML) ONE (13:20)
[2017-11-21] MEDS ORDERED: ONDANSETRON INJ 2 MG/ML 2 ML VIAL ONE (13:36)
--- NOTE | 2017-11-21 14:38 | [facility] Operative Report ---
Operative Report Operative Date Nov 21, 2017. Pre-Operative Diagnosis Left displaced Proximal Humerus Fracture Post-Operative Diagnosis Same as preop Procedure(s) Performed Open reduction, internal fixation of left proximal humerus fracture Surgeon Dr Dias Sonar Technician Surgeon(s) Sai Jose PA-C Estimated Blood Loss 50 cc Specimens none, as per surgeon Drains None Anesthesia Type General Complication(s) none Disposition Recovery Room / PACU Indications The patient is an 86-year-old female who had sustained a fall. She sustained a proximal humerus fracture. Initial x-rays demonstrated acceptable alignment. Unfortunately she had increased displacement of the fracture site. Given the amount of displacement I recommended open reduction internal fixation to the patient and her son and they wished to proceed. Description of Procedure Risks, benefits and alternatives to surgery including, but not limited to, infection DVT, pain, stiffness, need for revision surgery, failure to relieve all symptoms, damage to blood vessels, damage to nerves, risk of anesthesia were discussed with the patient and they wished to proceed. The patient was identified. Laterality was confirmed and marked. The patient received a preoperative antibiotic as well as an interscalene block. They were transferred to the operating room and placed in the supine position and induced into general endotracheal anesthesia per the anesthesia staff. There were then placed in a slight beachchair position. All pressure points were well padded.. We confirmed that we're able to achieve proper visualization of the fracture under fluoroscopy the arm was then prepped and draped in the usual standard manner with ChloraPrep. I made a longitudinal incision just lateral to the coracoid, sharply incising through the skin and utilizing Bovie electrocautery to achieve hemostasis. I identified the cephalic vein and mobilized it laterally with the deltoid. I mobilize the pectoralis and mobilize this medially releasing a small portion of the upper border of the pec tendon to improve visualization. I then identified and mobilized the conjoined tendon. I identified the long head of the biceps tendon. Holding traction on the arm I then reduced the fracture. I then positioned a standard size Synthes proximal humerus locking plate into position. I placed a nonlocking screw into the oblong hole and adjusted the height of the plate as necessary. I then placed 2 locking screws into the humeral head while holding the reduction. I placed an additional locking screw distally. I then took the arm through live fluoroscopy to ensure that we maintained good reduction and plate placement. I was satisfied with reduction of the fracture and the alignment of the plate. I then placed 2 additional locking screws distally and placed additional locking screws proximally into the humeral head. I then again confirmed reduction on AP and scapular Y views and I was satisfied with the reduction as well as the screw lengths. I thoroughly irrigated the wound. The deltopectoral interval was closed with interrupted #1 Ethibond suture. The subcutaneous tissue was closed with interrupted 2-0 Vicryl suture. The skin was closed with suzanne. A sterile dressing was applied. A sling was placed. All needle and sponge counts were correct at the end of the procedure. The patient was transferred to the PACU in stable condition without apparent complication. The PA-C was necessary for assistance with procedure for assistance in positioning, I attest to the content of the Intraoperative Record and any orders documented therein. Any exceptions are noted below.
--- NOTE | 2017-11-21 14:55 | DIAGNOSTIC IMAGING REPORT ---
L SHOULDER MIN 2 VIEW ROUTINE CLINICAL HISTORY: LEFT PROXIMAL HUMERUS FX COMPARISON STUDY: CT of the left shoulder November 07, 2017. Fluoroscopy time: 1 minute and 31 seconds. FINDINGS: 2 fluoroscopic images demonstrate placement of plate and screws within the proximal left humerus which fixate the proximal left humeral fracture. Hardware is intact. Fracture alignment is near anatomic. There are no unexpected radiopaque foreign bodies. IMPRESSION: Expected findings following internal fixation of the proximal left humeral fracture. Electronically signed by: Manuel Cho M.D. 11/21/2017 2:54 PM Dictated Date/Time: 11/21/2017 2:53 PM
[2017-11-21] MEDS ORDERED: BISACODYL 10 MG SUPP PR PRN (15:00)
[2017-11-21] MEDS ORDERED: SOD PHOSPHATE/SOD BIPHOSPHATE ENEMA 132 ML BTL PR PRN (15:00)
[2017-11-21] MEDS ORDERED: MoRPHine SULFATE 2 MG/ML CARP IV PRN (15:00)
[2017-11-21] MEDS ORDERED: CEFAZOLIN IV 1,000 MG in DEXTROSE 5% 50ML 50 ML IV SCH (15:00)
[2017-11-21] MEDS ORDERED: MAGNESIUM HYDROXIDE SUSP 30 ML UDC PO PRN (15:00)
[2017-11-21] MEDS ORDERED: ALBUTEROL HFA 8 GM INHALER INH PRN (15:00)
[2017-11-21] MEDS ORDERED: ALUMINUM/MAGNESIUM/SIMETH (MAALOX MAX) 30 ML UDC PO PRN (15:00)
[2017-11-21] MEDS ORDERED: ZOLPIDEM TARTRATE 5 MG TAB PO PRN (15:00)
--- NOTE | 2017-11-21 15:49 | Anesthesiology Progress Note ---
Anesthesia Post Op Note Date & Time Nov 21, 2017 at 15:49 Vital Signs Pain Intensity: 0 Vital Signs Past 12 Hours Date Time Temp Pulse Resp B/P (MAP) Pulse Ox O2 Delivery O2 Flow Rate FiO2 11/21/17 15:35 36.4 88 18 116/75 96 Nasal Cannula 2 11/21/17 15:25 90 18 109/76 95 Nasal Cannula 2 11/21/17 15:15 88 18 109/75 95 Nasal Cannula 2 11/21/17 15:05 90 18 117/77 96 Oxymask 10 11/21/17 14:58 36.6 91 16 129/85 96 Oxymask 10 11/21/17 09:50 36.5 65 16 140/76 (97) 96 Room Air Notes Mental Status: alert / awake / arousable, participated in evaluation Pt Amnestic to Procedure: Yes Nausea / Vomiting: adequately controlled Pain: adequately controlled Airway Patency, RR, SpO2: stable & adequate BP & HR: stable & adequate Hydration State: stable & adequate Anesthetic Complications: no major complications apparent
--- NOTE | 2017-11-21 18:47 | Medical Consult ---
Consultation Date of Consultation: Nov 21, 2017. Attending Physician: Bonilla Dias M.D. History of Present Illness 86 y/o F Hx HPL, HTN, GERD, OP, LE DVT, cerebral aneurysm with history of subarachnoid hemorrhage. Pt suffered a L humeral fracture 2 weeks prior and presented this AM for ORIF. She is recovering well post-op, denies SOB, CP, N/ V or fevers. Past Medical/Surgical History 1) HTN 2) HPL 3) GERD 4) LE DVT 5) Cerebral aneurysm with subarachnoid hemorrhage 1985 Family History FHx: cancer FHx: hypertension FHx: seizures Social History Smoking Status: Never Smoker Housing Status: lives alone Allergies Coded Allergies: Doxycycline (Verified Allergy, Mild, unknown, 04/19/15) Current Inpatient Medications Current Inpatient Medications Medications (Trade) Dose Ordered Sig/Maricruz Route Start Time Stop Time Status Last Admin Dose Admin Potassium Chloride 10 meq/ Sodium Chloride 1,005 ml @ 100 mls/hr Q10H3M IV 11/21/17 17:00 12/21/17 16:59 Oxycodone HCl (Roxicodone Immediate Rel Tab) 1-2 TABS FOR PAIN 1 TABLET ... Q4H PRN PO 11/21/17 15:00 12/05/17 14:59 Morphine Sulfate (MoRPHine SULFATE INJ) 2 mg Q4H PRN IV 11/21/17 15:00 12/05/17 14:59 Magnesium Hydroxide (Milk Of Magnesia Susp) 30 ml Q6H PRN PO 11/21/17 15:00 12/21/17 14:59 Bisacodyl (Dulcolax Supp) 10 mg DAILY PRN W[place] 11/21/17 15:00 12/21/17 14:59 Sodium Biphosphate/ Sodium Phosphate (Fleet Enema) 132 ml DAILY PRN WV 11/21/17 15:00 12/21/17 14:59 Senna (Senokot Tab) 17.2 mg HS PO 11/21/17 21:00 12/21/17 20:59 Docusate Sodium (coLACE CAP) 100 mg BID PO 11/21/17 21:00 12/21/17 20:59 Diphenhydramine HCl (Benadryl Cap) 25 mg Q8H PRN PO 11/21/17 15:00 12/21/17 14:59 Al Hydrox/Mg Hydrox/Simethicone (Maalox Max Susp) 15 ml Q4H PRN PO 11/21/17 15:00 12/21/17 14:59 Zolpidem Tartrate (Ambien Tab) 5 mg HSZ PRN PO 11/21/17 15:00 12/21/17 14:59 Multivitamins (Multivitamin Tab) 1 tab QAM PO 11/22/17 09:00 12/22/17 08:59 Ondansetron HCl (Zofran Inj) 4 mg Q6H PRN IV 11/21/17 15:00 12/21/17 14:59 Ferrous Gluconate (Ferrous Gluconate Tab) 324 mg TIDM PO 11/21/17 17:45 12/21/17 17:59 Aspirin (Ecotrin Tab) 81 mg DAILY PO 11/22/17 09:00 12/22/17 08:59 Atorvastatin Calcium (Lipitor Tab) 20 mg DAILY PO 11/22/17 09:00 12/22/17 08:59 Calcium Carbonate (Tums Chew Tab) 500 mg BID PO 11/21/17 21:00 12/21/17 20:59 Cyanocobalamin (Vitamin B-12 Tab) 1,000 mcg DAILY PO 11/22/17 09:00 12/22/17 08:59 Verapamil HCl (Calan-Sr Tab) 120 mg DAILY PO 11/22/17 09:00 12/22/17 08:59 Albuterol (Ventolin Hfa Inhaler) 2 puffs QID PRN INH 11/21/17 15:00 12/21/17 14:59 Pantoprazole Sodium (Protonix Tab) 40 mg QAM PO 11/22/17 09:00 12/22/17 08:59 Cefazolin Sodium 1000 mg/Syringe 7.5 ml @ 2.5 mls/min Q8H IV 11/21/17 20:00 11/22/17 04:02 Review of Systems Constitutional: No fever, No chills, No sweats Eyes: No worsening of vision ENT: No hearing loss, No unusual epistaxis, No nasal symptoms Respiratory: No cough, No sputum, No wheezing Cardiovascular: No chest pain, No orthopnea, No PND Abdomen: No pain, No nausea, No vomiting Musculoskeletal: + joint pain (L arm pain following fracture) Genitourinary - Female: No dysuria, No urinary frequency Neurologic: No memory loss, No paralysis, No weakness Psychiatric: No depression symptoms Endocrine: No fatigue Hematologic / Lymphatic: No abnormal bleeding/bruising Integumentary: No rash Allergic / Immunologic: No environmental allergies Physical Exam Date Time Temp Pulse Resp B/P (MAP) Pulse Ox O2 Delivery O2 Flow Rate FiO2 11/21/17 18:10 36.7 84 18 100/63 (75) 91 Room Air 11/21/17 17:09 36.4 83 18 90/57 (68) 93 Room Air 11/21/17 16:40 36.5 86 18 106/70 (82) 97 Nasal Cannula 2.0 11/21/17 15:50 36.4 89 18 123/75 96 Nasal Cannula 2 11/21/17 15:35 36.4 88 18 116/75 96 Nasal Cannula 2 11/21/17 15:25 90 18 109/76 95 Nasal Cannula 2 11/21/17 15:15 88 18 109/75 95 Nasal Cannula 2 11/21/17 15:05 90 18 117/77 96 Oxymask 10 11/21/17 14:58 36.6 91 16 129/85 96 Oxymask 10 11/21/17 09:50 36.5 65 16 140/76 (97) 96 Room Air General Appearance: WD/WN, no apparent distress Head: normocephalic Eyes: normal inspection ENT: normal ENT inspection, pharynx normal Neck: supple, no JVD Respiratory/Chest: chest non-tender, lungs clear, normal breath sounds Cardiovascular: regular rate, rhythm, no edema, no gallop Abdomen/GI: normal bowel sounds, non tender, soft Back: normal inspection, no CVA tenderness Extremities/Musculoskelatal: no calf tenderness, normal capillary refill, + pertinent finding (L arm splinted presently) 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 Pt suffered a L humeral fracture 2 weeks prior and presented this AM for ORIF. She is recovering well post-op, denies SOB, CP, N/ V or fevers. 1) Post-op - pt is stable - post-op labs are favorable. Pain control is adequate. She has a distant Hx of DVT but also of a subarachnoid hemorrhage. She does take ASA daily and an increased dose may then be adequate along with PT and SCDs for DVT prophylaxis. They have however provided her with Lovenox without complication at rehab for the past 2 weeks so that this can likely continue. 2) HTN - cont Verapamil as scheduled - would hold HCTZ for AM 3) HPL - cont Statin therapy 4) GERD - cont PPi Total time for this consult including review of labs, meds, ortho notes - discussion/exam of pt - 30 min
[2017-11-21] MEDS: FERROUS GLUCONATE 324 MG TAB PO SCH (18:51)
[2017-11-21] MEDS: POTASSIUM CHLORIDE INJ 10 MEQ in SODIUM CHLORIDE 0.9% 1000ML 1,000 ML IV SCH (18:51)
[2017-11-21] MEDS: CEFAZOLIN IV 1,000 MG in SYRINGE 0 ML IV SCH (20:21)
[2017-11-21] MEDS: SENNA 8.6 MG TAB PO SCH (21:00)
[2017-11-21] MEDS: DOCUSATE SODIUM 100 MG CAP PO SCH (21:00)
[2017-11-21] MEDS: CALCIUM CARBONATE 500 MG CHEWABLE PO SCH (21:00)
[2017-11-22] MEDS: OXYCODONE HCL IR 5 MG TAB (IMMEDIATE RELEASE) PO PRN ×4 (00:19→12:45)
[2017-11-22 03:18] VITALS: BP 112/71; PULSE 74; TEMP 37; O2SAT 94
[2017-11-22] MEDS: POTASSIUM CHLORIDE INJ 10 MEQ in SODIUM CHLORIDE 0.9% 1000ML 1,000 ML IV SCH ×2 (03:36→12:48)
[2017-11-22] MEDS: CEFAZOLIN IV 1,000 MG in SYRINGE 0 ML IV SCH (03:36)
[2017-11-22 06:59] VITALS: BP 109/69; PULSE 75; TEMP 36.9; O2SAT 90
[2017-11-22] MEDS: DOCUSATE SODIUM 100 MG CAP PO SCH ×2 (09:30→20:13)
[2017-11-22] MEDS: ATORVASTATIN 20 MG TAB PO SCH (09:31)
[2017-11-22] MEDS: CALCIUM CARBONATE 500 MG CHEWABLE PO SCH ×3 (09:31→21:30)
[2017-11-22] MEDS: MULTIVITAMIN TAB PO SCH ×2 (09:32→09:41)
[2017-11-22] MEDS: FERROUS GLUCONATE 324 MG TAB PO SCH ×4 (09:32→17:45)
[2017-11-22] MEDS: ASPIRIN 81 MG ECTAB PO SCH (09:32)
[2017-11-22] MEDS: PANTOprazole SOD 40 MG TAB PO SCH (09:33)
[2017-11-22] MEDS: VERAPAMIL HCL 120 MG TABCR PO SCH (09:33)
[2017-11-22] MEDS: CYANOCOBALAMIN 500 MCG TAB (VIT B-12) PO SCH (09:34)
[2017-11-22 10:25] LABS: HEMATOCRIT 31.5 % (37-47); HEMOGLOBIN 9.9 g/dL (12.0-16.0); MEAN CORPUSCULAR HGB CONC 31.4 g/dl (32-36); MEAN PLATELET VOLUME 10.3 fL (7.4-10.4); PLATELET COUNT 297 K/uL (130-400); RED CELL DISTRIBUTION WIDTH CV 16.2 % (11.5-14.5); RED CELL DISTRIBUTION WIDTH SD 52.1 fL (36.4-46.3); WHITE BLOOD COUNT 8.95 K/uL (4.8-10.8)
[2017-11-22 10:30] LABS: CREATININE 0.83 mg/dl (0.60-1.20); POTASSIUM 4.2 mmol/L (3.5-5.1)
--- NOTE | 2017-11-22 10:32 | Orthopedic Progress Note ---
Orthopedic Progress Note Date of Service Nov 22, 2017. Objective Date Time Temp Pulse Resp B/P (MAP) Pulse Ox O2 Delivery O2 Flow Rate FiO2 11/22/17 06:59 36.9 75 16 109/69 (82) 90 Room Air 11/22/17 03:18 37.0 74 18 112/71 (85) 94 Room Air 11/22/17 00:10 Room Air 11/21/17 22:48 36.6 77 16 106/67 (80) 91 Room Air 11/21/17 19:22 36.6 89 18 103/73 (83) 93 Room Air 11/21/17 18:10 36.7 84 18 100/63 (75) 91 Room Air 11/21/17 17:09 36.4 83 18 90/57 (68) 93 Room Air 11/21/17 16:40 36.5 86 18 106/70 (82) 97 Nasal Cannula 2.0 11/21/17 16:10 96 Nasal Cannula 2.0 11/21/17 16:10 36.5 74 18 108/75 (86) 96 Nasal Cannula 2.0 11/21/17 16:10 96 Nasal Cannula 2.0 11/21/17 15:50 36.4 89 18 123/75 96 Nasal Cannula 2 11/21/17 15:35 36.4 88 18 116/75 96 Nasal Cannula 2 11/21/17 15:25 90 18 109/76 95 Nasal Cannula 2 11/21/17 15:15 88 18 109/75 95 Nasal Cannula 2 11/21/17 15:05 90 18 117/77 96 Oxymask 10 11/21/17 14:58 36.6 91 16 129/85 96 Oxymask 10 Laboratory Results 24 Hours: Test 11/22/17 09:16 Hematocrit 31.5 % Hemoglobin 9.9 g/dL Prothromb Time International Ratio 1.0 Prothrombin Time 10.4 SECONDS Assessment & Plan Assessment: POD #1 s/p Open reduction, internal fixation of left proximal humerus fracture Plan: Pain control--Oxy IR D/C planning--rehab vs. home with home health. Patient states she may stay with her son upon discharge if going home. Will get social service input. Inhouse Planning Pain Management: Oxy IR DVT Prophylaxis: ASA Discharge Planning Discharge Planning: uncertain
[2017-11-22 15:20] VITALS: BP 118/72; PULSE 72; TEMP 36.8; O2SAT 91
--- NOTE | 2017-11-22 18:00 | Progress Note ---
Subjective Date of Service: Nov 22, 2017. Subjective Pt evaluation today including: conversation w/ patient, physical exam, chart review, lab review, review of inpatient medication list Pain: left shoulder - severe this am PO Intake: poor this am (due to pain) Voiding: no voiding problems during the visit she only complained of left shoulder pain she denied cp, dyspnea, abd pain +flatus Objective Vital Signs Date Time Temp Pulse Resp B/P (MAP) Pulse Ox O2 Delivery O2 Flow Rate FiO2 11/22/17 15:30 Room Air 11/22/17 15:20 36.8 72 16 118/72 (87) 91 Room Air 11/22/17 07:30 Room Air 11/22/17 06:59 36.9 75 16 109/69 (82) 90 Room Air 11/22/17 03:18 37.0 74 18 112/71 (85) 94 Room Air 11/22/17 00:10 Room Air 11/21/17 22:48 36.6 77 16 106/67 (80) 91 Room Air 11/21/17 19:22 36.6 89 18 103/73 (83) 93 Room Air 11/21/17 18:10 36.7 84 18 100/63 (75) 91 Room Air Physical Exam General Appearance: no apparent distress, + thin ENT: pharynx normal Neck: no JVD Respiratory/Chest: lungs clear, no respiratory distress, no accessory muscle use, + decreased breath sounds (both bases) Cardiovascular: regular rate, rhythm, no gallop, no murmur Abdomen: normal bowel sounds, non tender, soft, no organomegaly Extremities: no pedal edema, + pertinent finding (left shoulder with intact dressing; edematous; tender with any palpation) Neurologic/Psychiatric: alert, oriented x 3 Laboratory Results Last 24 Hours Test 11/22/17 09:16 White Blood Count 8.95 K/uL Red Blood Count 3.54 M/uL Hemoglobin 9.9 g/dL Hematocrit 31.5 % Mean Corpuscular Volume 89.0 fL Mean Corpuscular Hemoglobin 28.0 pg Mean Corpuscular Hemoglobin Concent 31.4 g/dl RDW Standard Deviation 52.1 fL RDW Coefficient of Variation 16.2 % Platelet Count 297 K/uL Mean Platelet Volume 10.3 fL Prothrombin Time 10.4 SECONDS Prothromb Time International Ratio 1.0 Sodium Level 139 mmol/L Potassium Level 4.2 mmol/L Chloride Level 108 mmol/L Carbon Dioxide Level 25 mmol/L Anion Gap 6.0 mmol/L Blood Urea Nitrogen 15 mg/dl Creatinine 0.83 mg/dl Est Creatinine Clear Calc Drug Dose 36.2 ml/min Estimated GFR () 75.1 Estimated GFR (Non- 64.8 BUN/Creatinine Ratio 18.2 Random Glucose 108 mg/dl Calcium Level 8.0 mg/dl Assessment and Plan 86yo female - 1. left humerus fracture, s/p ORIF - POD #1 - ortho managing 2. acute blood loss anemia 2nd to #1 - agree w/ ferrous sulfate BID-TID (as tolerated). CBC in am. 3. vitamin D deficiency - 2 weeks ago her vit D level was <10. Ergocalciferol 25899 U weekly x 8 weeks. 4. HTN - controlled; cont home meds. 5. CKD stage 3 - creatinine stable; BMP in am for stability. 6. constipation - bowel regimen. 7. FEN - would lower fluid rate to 50cc/hr as she has had 3+ liters of fluid since yesterday. BMP in am. 8. DVT proph - per ortho. 9. h/o SAH - noted. 10. dispo - per ortho. Continued [facility] stay due to: inadequate oral pain control, multiple IV medications needed Discharge planning: uncertain
[2017-11-22] MEDS: SENNA 8.6 MG TAB PO SCH (20:13)
[2017-11-22] MEDS ORDERED: ERGOCALCIFEROL 50,000 INTER.UNIT CAP PO SCH (21:00)
[2017-11-22] MEDS ORDERED: RXC5 PO (22:15)
--- NOTE | 2017-11-22 22:18 | Discharge Instructions ---
Discharge Instructions Date of Service Nov 22, 2017. Admission Reason for Admission: Left Humerus Fracture Discharge Discharge Diagnosis / Problem: left proximal humerus fracture Discharge Goals Goal(s): Decrease discomfort, Improve function Activity Recommendations Activity Level: Up Ad Padmini Therapies: Physical Therapy, Occupational Therapy . Additional Information Patient informed of condition: Yes Advance Directives: Yes DNR: No Level of Care: Acute Rehab Communicable Disease: No Prognosis: Stable Instructions / Follow-Up Instructions / Follow-Up [facility] DISCHARGE INSTRUCTIONS: OPEN REDUCTION INTERNAL FIXATION PROXIMAL HUMERUS FRACTURE SELF CARE INSTRUCTIONS A. You are permitted to loosen your sling/immobilizer to move your elbow, wrist , and hand to prevent stiffness. You should use your well arm (good arm) to assist the operated extremity when trying to raise the arm away from the body, hygiene purposes. Do NOT actively try to use/engage your shoulder muscles in operative arm at this time. You should NOT do overhead activity, lifting, or attempt to reach behind your back. B. You may/may not be instructed to start Physical Therapy upon discharge. You will be provided a prescription for therapy with specific restrictions, if needed, at time of discharge. C. At 48 hours post-operatively, you may change your dressing. (Leave white steri-strips intact if present). Use band-aids and change daily. You are allowed to shower at this time and get the incision area wet, but DO NOT soak or submerge incision area in water. (No baths, swimming pools, hot tubs) D. Do NOT apply soap or any ointment/lotions directly over incision. E. You may use ice as needed to operative shoulder SPECIAL CARE INSTRUCTIONS: VERY IMPORTANT TO READ AND REVIEW A. There are a few signs you need to watch for after you are home. Call [facility] at [phone] if you experience any of the following: a. Increased severe shoulder pain. Some pain is expected especially when you exercise b. Increased swelling in your shoulder or arm; pain or swelling in either upper extremity. (Note: swelling and stiffness is normal and expected for several weeks post op, depending on type of shoulder surgery you had). c. Any fluid or drainage from the incision; redness of the incision. d. Shortness of breath or chest pain. B. Please call [facility] at [phone] if you have any questions or concerns about your operation or recovery. C. Call your physician if: a. Temperature is greater than 101 degrees (F). b. Pain is not relieved by prescribed pain medications. c. Increase drainage or redness from incision. d. Unanswered questions or concerns. D. Pain Medication: a. You will be prescribed pain medication upon discharge that should last till your first post-operative appointment. b. If you experience nausea and/or skin rash, discontinue this medication and contact our office for an alternative medication. c. Caution- narcotic pain medication can cause constipation. FOLLOW UP VISIT: Please call [facility] at [phone] to schedule a follow up appointment 10-14 days from your surgery date. Current Hospital Diet Patient's current hospital diet: Regular Diet Discharge Diet Recommended Diet: Regular Diet Procedures Procedures Performed: Open reduction, internal fixation of left proximal humerus fracture Pending Studies Studies pending at discharge: no Medical Emergencies . Who to Call and When: Medical Emergencies: If at any time you feel your situation is an emergency, please call 911 immediately. . Non-Emergent Contact Non-Emergency issues call your: Surgeon Call Non-Emergent contact if: temperature is above 101, your pain is not controlled, your pain is worsening, wound has increased drainage, wound has increased redness . . "Provider Documentation" section prepared by Koffi Bright. . Core Measure Problem Core Measures: None
[2017-11-22 22:50] VITALS: BP 113/75; PULSE 78; TEMP 37.1; O2SAT 94
[2017-11-23] MEDS: OXYCODONE HCL IR 5 MG TAB (IMMEDIATE RELEASE) PO PRN ×2 (00:44→11:46)
[2017-11-23] MEDS: POTASSIUM CHLORIDE INJ 10 MEQ in SODIUM CHLORIDE 0.9% 1000ML 1,000 ML IV SCH (00:45)
[2017-11-23 07:07] VITALS: BP 108/70; PULSE 89; TEMP 36.6; O2SAT 91
[2017-11-23 07:26] LABS: HEMATOCRIT 33.1 % (37-47); HEMOGLOBIN 10.1 g/dL (12.0-16.0); MEAN CELL VOLUME 90.2 fL (80-100); MEAN CORPUSCULAR HEMOGLOBIN 27.5 pg (25-34); MEAN CORPUSCULAR HGB CONC 30.5 g/dl (32-36); MEAN PLATELET VOLUME 10.4 fL (7.4-10.4); PLATELET COUNT 303 K/uL (130-400); RED CELL DISTRIBUTION WIDTH CV 16.5 % (11.5-14.5); RED CELL DISTRIBUTION WIDTH SD 53.4 fL (36.4-46.3)
[2017-11-23 07:54] LABS: CALCIUM 8.1 mg/dl (8.5-10.1); CREATININE 0.84 mg/dl (0.60-1.20); POTASSIUM 4.1 mmol/L (3.5-5.1)
[2017-11-23] MEDS: FERROUS GLUCONATE 324 MG TAB PO SCH (08:30)
[2017-11-23] MEDS: DOCUSATE SODIUM 100 MG CAP PO SCH (08:36)
[2017-11-23] MEDS: SENNA 8.6 MG TAB PO SCH (08:37)
[2017-11-23] MEDS: ATORVASTATIN 20 MG TAB PO SCH (08:38)
[2017-11-23] MEDS: PANTOprazole SOD 40 MG TAB PO SCH (08:38)
[2017-11-23] MEDS: ASPIRIN 81 MG ECTAB PO SCH (08:38)
[2017-11-23] MEDS: VERAPAMIL HCL 120 MG TABCR PO SCH (08:38)
[2017-11-23] MEDS: MULTIVITAMIN TAB PO SCH (08:38)
[2017-11-23] MEDS: CYANOCOBALAMIN 500 MCG TAB (VIT B-12) PO SCH (08:39)
[2017-11-23] MEDS: CALCIUM CARBONATE 500 MG CHEWABLE PO SCH (08:40)
--- NOTE | 2017-11-23 09:06 | Orthopedic Progress Note ---
Orthopedic Progress Note Date of Service Nov 23, 2017. Subjective Post OP Day: 2 Reports: feeling well, pain controlled w PO medications, Denies: complaints Objective N/V intact, capillary refill less than 2 sec., dressing C/D/I, A&O x3 LUE in sling. NV intact LUE. Fingers and wrist mobile in all directions. Date Time Temp Pulse Resp B/P (MAP) Pulse Ox O2 Delivery O2 Flow Rate FiO2 11/23/17 07:07 36.6 89 16 108/70 (83) 91 Room Air 11/23/17 00:35 Room Air 11/22/17 22:50 37.1 78 16 113/75 (88) 94 Room Air 11/22/17 15:30 Room Air 11/22/17 15:20 36.8 72 16 118/72 (87) 91 Room Air Laboratory Results 24 Hours: Test 11/22/17 09:16 11/23/17 06:55 Hematocrit 31.5 % 33.1 % Hemoglobin 9.9 g/dL 10.1 g/dL Prothromb Time International Ratio 1.0 Prothrombin Time 10.4 SECONDS Assessment & Plan Assessment: POD #2 s/p Open reduction, internal fixation of left proximal humerus fracture Plan: Pain control--Oxy IR D/C planning--will go back to [facility] when bed available. Inhouse Planning Pain Management: Oxy IR DVT Prophylaxis: ASA Discharge Planning Discharge Planning: rehab hospital
[2017-11-23 10:58] VITALS: BP 108/70; PULSE 89; TEMP 36.6; O2SAT 91
== END 2017-11-23 12:10 | DRG 493 ==
LOC: C.ACU 09:28 → C.MSW 09:53 → ENRESERV 15:48
PROVIDERS: ADMIT Orthopaedic Surgery; ATTEND Orthopaedic Surgery
PROC: 0PSD04Z Reposition Left Humeral Head with Internal Fixation Device, Open Approach (ICD-10-PCS; principal; 2017-11-21 10:45)
DX: S42.202A Unspecified fracture of upper end of left humerus, initial encounter for closed fracture (principal); D62 Acute posthemorrhagic anemia; K59.00 Constipation, unspecified; I12.9 Hypertensive chronic kidney disease with stage 1 through stage 4 chronic kidney disease, or unspecified chronic kidney disease; E78.5 Hyperlipidemia, unspecified; E55.9 Vitamin D deficiency, unspecified; K21.9 Gastro-esophageal reflux disease without esophagitis; M81.0 Age-related osteoporosis without current pathological fracture; N18.3 Chronic kidney disease, stage 3 (moderate); I67.1 Cerebral aneurysm, nonruptured; Z79.899 Other long term (current) drug therapy; Z79.82 Long term (current) use of aspirin; Z86.718 Personal history of other venous thrombosis and embolism; Z86.79 Personal history of other diseases of the circulatory system; Z88.1 Allergy status to other antibiotic agents; Z82.49 Family history of ischemic heart disease and other diseases of the circulatory system; Z84.89 Family history of other specified conditions; W19.XXXA Unspecified fall, initial encounter

== ENCOUNTER → 2018-01-05 | Outpatient (CLI) | payer OTHER ==
[~2018-01-05] MED LIST changes: -BUPIVACAINE 0.25% 30 ML VIAL ONE; -CALC500C3 PO; -CEFAZOLIN 1000MG IV PUSH 7.5 ML IV SCH; -CLONIDINE HCL 100 MCG/ML SYRINGE ONE; -ERGO500011 PO; -EpINEphrine INJ 1MG/ML AMP 1 MG/ML AMP ONE; -HPRIS5M SQ; -HYDR25TA4 PO; -LACTATED RINGER'S 1000ML 1,000 ML IV SCH; -OXYC1TAB3 PO; -ROPIVACAINE 0.5% 5 MG/ML 30 ML VIAL ONE; +RXC5 PO
[2018-01-05 09:56] LABS: HEMOGLOBIN 13.3 g/dL (12.0-16.0); MEAN CELL VOLUME 90.9 fL (80-100); MEAN CORPUSCULAR HEMOGLOBIN 28.8 pg (25-34); MEAN CORPUSCULAR HGB CONC 31.7 g/dl (32-36); MEAN PLATELET VOLUME 11.3 fL (7.4-10.4); PLATELET COUNT 255 K/uL (130-400); RED CELL DISTRIBUTION WIDTH CV 16.8 % (11.5-14.5); WHITE BLOOD COUNT 7.03 K/uL (4.8-10.8)
== END ==
LOC: C.LABCC 09:36
PROVIDERS: ATTEND Internal Medicine
DX: D64.9 Anemia, unspecified (principal)

== ENCOUNTER → 2018-02-04 | Outpatient (CLI) | payer OTHER | LOC: C.LABCC 08:50 | PROVIDERS: ATTEND Internal Medicine | DX: E55.9 Vitamin D deficiency, unspecified (principal) ==

== ENCOUNTER 2021-09-18 09:01 | Inpatient (IN) ==
--- NOTE | 2021-09-18 09:15 | Emergency Department Note ---
Impression & Plan Pneumonia due to COVID-19 virus, Hypoxia, Fall from standing ED Provider Note NAME: ANGI TRINH AGE: 89 SEX: F ARRIVES VIA: Ambulance INFORMANT: Patient ED PROVIDER(S): Dawood Curry MD CHIEF COMPLAINT: Fall PLAN: Disposition: Admit MEDICAL DECISION MAKING: The patient is a pleasant 89-year-old woman with a past medical history of dementia, hypertension, hyperlipidemia, GERD who presents to the emergency department after a fall where she ports she lost her balance when turning around hitting the back of her head on the ground. She denies any loss of consciousness. She denies being on blood thinners. She reports he was unable get up and called the ambulance. Prior to today she reports she has been in her normal state of health and denies fevers, chills, cough, congestion, GI or symptoms patient but she is always short of breath and this is unchanged. On arrival the patient is fatigued appearing but no distress, afebrile with O2 saturation in the 80s on room air improving to low mid 90s on 3 L nasal cannula. She appears clinically dry. Scant rhonchi of bilateral lower lung kaur. She is moving all extremities equally with generalized weakness. She has no focal deficits. EKG without overt acute ischemia. CXR with bilateral patchy interstitial infiltrates c/w viral PNA. WBC, H/H, platelets wnl. Chemistry without acidosis. Electrolytes unremarkable. LFTs without significant abnormality. Troponin negative/undetectable. Covid-19 RNA, NAAT was positive. CT head negative for acute process. Given hypoxia in the setting of Covid-19 pna will admit. Patient agrees with plan. Case was d/w Lisa Babcock PAC, with Dr. Leonardo Gonzalez hospitalist who will evaluate the patient for admission. Triage Nursing notes reviewed and agree them. Prior medical records reviewed Vital Signs: reviewed and remarkable for no significant abnormalities Differential diagnosis: Infection, dehydration, metabolic abnormality, hypo/hyperglycemia, electrolyte disturbance, anemia, hypoxia, cardiac sources, intracerebral event, toxicologic, neurologic, as well as other pathologies. ER treatment provided: See below. Diagnostics interpreted by me: ECG: NSR, 61 bpm, no ectopy, nonspecific TWA, no overt ST elevation or depression. Cardiac Monitoring: An order for continuous cardiac monitoring was placed and demonstrated NSR, 61 bpm, no ectopy. Laboratory studies: See below Imaging studies: See below Consultation(s): Lisa Babcock PAC, with Dr. Leonardo Gonzalez hospitalist who will evaluate the patient for admission. HPI: The patient is a pleasant 89-year-old woman with a past medical history of dementia, hypertension, hyperlipidemia, GERD who presents to the emergency department after a fall at home where she lives alone and reports she lost her balance when turning around hitting the back of her head on the ground. She denies any loss of consciousness. She denies being on blood thinners. She reports he was unable get up and called the ambulance. Prior to today she reports she has been in her normal state of health and denies fevers, chills, cough, congestion, GI or symptoms patient but she is always short of breath and this is unchanged. ROS: See above HPI for pertinent positives & negatives. A total of 10 systems reviewed and were otherwise negative. PAST MEDICAL HISTORY:See Below PAST SURGICAL HISTORY:See Below FAMILY HISTORY:See Below SOCIAL HISTORY:See Below HOME MEDICATIONS:See Below ALLERGIES:See Below VITALS:See Below PHYSICAL EXAMINATION: GENERAL: Awake, alert, fatigued-appearing, in no distress HENT: Normocephalic, atraumatic. Oropharynx with dry mucous membranes and otherwise unremarkable. . EYES: Normal conjunctiva. Sclera non-icteric EOMI. No nystamgus. PEARRL. NECK: Supple. No nuchal rigidity. FROM. No JVD. RESPIRATORY: Scant rhonchi of bilateral lower lung kaur. CARDIAC: Regular rate, normal rhythm. Extremities warm and well perfused. Pulses equal. ABDOMEN: Soft, non-distended. No tenderness to palpation. No rebound or guardin g. No masses. RECTAL: Deferred. MUSCULOSKELETAL: Chest examination reveals no tenderness. The back is symmetrical on inspection without obvious abnormality. No midline CTL spine ttp or stepoffs. There is no CVA tenderness to palpation. No joint edema. LOWER EXTREMITIES: Calves are equal size bilaterally and non-tender. 1+ BLE edema. No discoloration. NEURO: No focal sensory or motor deficits noted. 5/5 strength and SILT x 4 extremities. SKIN: No rash or jaundice noted. Dawood Curry MD Past Med/Surg History Medical History Cerebral aneurysm, nonruptured GERD (gastroesophageal reflux disease) HTN (hypertension) Left humeral fracture Osteoarthrosis Shoulder fracture, left Subarachnoid hemorrhage Surgical History History of hemiarthroplasty of left shoulder Social History Smoking Status: Never smoker Hx Alcohol Use: No Hx Substance Use: No Preferred Language: Argentine Communication Ability: Effective [employer] Negative Required: No Beliefs That Will Affect Care: None Current Living Situation: Alone Current Living Situation Comment: Patient lives at home but has caregivers that come to the house Other Information That Helps Us Care for You: No Feels Safe at Home: Yes Safety Concerns: Feels Safe At This Time Assistive Devices: Oxygen - Continuous and Walker Allergies Allergies Allergy/AdvReac Type Severity Reaction Status Date / Time doxycycline Allergy Mild unknown Verified 09/18/21 10:24 Home Meds Home Medications Medication Instructions Recorded Confirmed atorvastatin 20 mg tablet 20 mg PO DAILY 08/19/18 09/18/21 hydrochlorothiazide 25 mg tablet 25 mg PO DAILY 08/19/18 09/18/21 omeprazole 20 mg capsule,delayed 20 mg PO DAILY 08/19/18 09/18/21 release verapamil 120 mg tablet 120 mg PO QAM 08/19/18 09/18/21 aspirin 81 mg tablet 81 mg PO DAILY 09/18/21 09/18/21 ferrous sulfate 325 mg PO DAILY 09/18/21 09/18/21 furosemide 20 mg tablet 20 mg PO DAILY 09/18/21 09/18/21 Results & Data (ED) Vital Signs Vital Signs - 24 hr 09/18/21 09:16 09/18/21 09:17 09/18/21 09:29 Temperature 36.5 C Temperature Source Oral Pulse Rate 71 94 H Pulse Rate [Apical] Pulse Rhythm Regular Respiratory Rate 19 20 Respiratory Effort / Characteristics Non-Labored Spontaneous Respiratory Depth Normal Blood Pressure 155/73 H Blood Pressure [Right Arm] Blood Pressure Mean 100 Blood Pressure Mean [Right Arm] Blood Pressure Position Lying Pulse Oximetry 84 L 94 96 Oxygen Delivery Method Room Air Nasal Cannula Nasal Cannula Oxygen Flow Rate 3 3 Sepsis Recent Fever Within 48 Hours No Sepsis New/Unexplained Change in Mental Status No Sepsis Action Taken by Nursing No Action Required 09/18/21 11:18 Temperature Temperature Source Pulse Rate Pulse Rate [Apical] 73 Pulse Rhythm Respiratory Rate 20 Respiratory Effort / Characteristics Non-Labored Respiratory Depth Normal Blood Pressure Blood Pressure [Right Arm] 160/75 H Blood Pressure Mean Blood Pressure Mean [Right Arm] 103 Blood Pressure Position Pulse Oximetry 97 Oxygen Delivery Method Nasal Cannula Oxygen Flow Rate 2 Sepsis Recent Fever Within 48 Hours Sepsis New/Unexplained Change in Mental Status Sepsis Action Taken by Nursing Laboratory Data Attestation: I reviewed the patient's lab results. Result diagrams: 09/18/21 09:30 09/18/21 09:30 Lab Results 09/18/21 09/18/21 09/18/21 Range/Units 09:30 09:30 09:30 WBC 6.96 (4.8-10.8) K/uL RBC 4.44 (4.2-5.4) M/uL Hgb 13.5 (12.0-16.0) g/dL Hct 42.0 (37-47) % MCV 94.6 (80-100) fL MCH 30.4 (25-34) pg MCHC 32.1 (32-36) g/dL RDW Std Deviation 47.4 H (36.4-46.3) fL RDW Coeff of Kishan 13.7 (11.5-14.5) % Plt Count 287 (130-400) K/uL MPV 11.1 H (7.4-10.4) fL Immature Gran % (Auto) 3.4 % Neut % (Auto) 80.7 % Lymph % (Auto) 10.2 % [place] % (Auto) 4.2 % Eos % (Auto) 0.9 % Baso % (Auto) 0.6 % Neut # (Auto) 5.62 (1.4-6.5) K/uL Lymph # (Auto) 0.71 L (1.2-3.4) K/uL [place] # (Auto) 0.29 (0.11-0.59) K/uL Eos # (Auto) 0.06 (0-0.5) K/uL Baso # (Auto) 0.04 (0-0.2) K/uL Immature Gran # (Auto) 0.24 H (0.00-0.02) K/uL PT 10.0 (9.0-12.0) Seconds INR 1.0 (0.9-1.1) Sodium 143 (136-145) mmol/L Potassium 3.6 (3.5-5.1) mmol/L Chloride 109 H (98-107) mmol/L Carbon Dioxide 28 (21-32) mmol/L Anion Gap 6.0 (3-11) BUN 13 (7-18) mg/dl Creatinine 0.72 (0.6-1.2) mg/dl Est Cr Clr Drug Dosing 38.0 ml/min Est GFR ( Amer) 86.7 ml/min Est GFR (Non-Af Amer) 74.8 ml/min BUN/Creatinine Ratio 18.2 (10-20) Glucose 84 (70-99) mg/dl Calcium 8.7 (8.5-10.1) mg/dl Phosphorus 2.7 (2.5-4.9) mg/dl Magnesium 2.3 (1.8-2.4) mg/dl Ferritin (8-388) ng/ml Total Bilirubin 0.8 (0.2-1) mg/dl AST 50 H (15-37) U/L ALT 40 (12-78) Alkaline Phosphatase 104 (45-117) U/L Troponin I < 0.015 (0-0.045) ng/ml C-Reactive Protein (0-0.29) mg/dl NT-Pro-B Natriuret Pep 92 (0-1800) pg/ml Total Protein 6.3 L (6.4-8.2) gm/dl Albumin 2.5 L (3.4-5.0) gm/dl Globulin 3.8 (2.5-4.0) gm/dl Albumin/Globulin Ratio 0.7 L (0.9-2) Lipase 113 (73-393) U/L SARS-CoV-2, RNA, NAAT (NEGATIVE) 09/18/21 09/18/21 Range/Units 09:30 09:42 WBC (4.8-10.8) K/uL RBC (4.2-5.4) M/uL Hgb (12.0-16.0) g/dL Hct (37-47) % MCV (80-100) fL MCH (25-34) pg MCHC (32-36) g/dL RDW Std Deviation (36.4-46.3) fL RDW Coeff of Kishan (11.5-14.5) % Plt Count (130-400) K/uL MPV (7.4-10.4) fL Immature Gran % (Auto) % Neut % (Auto) % Lymph % (Auto) % [place] % (Auto) % Eos % (Auto) % Baso % (Auto) % Neut # (Auto) (1.4-6.5) K/uL Lymph # (Auto) (1.2-3.4) K/uL [place] # (Auto) (0.11-0.59) K/uL Eos # (Auto) (0-0.5) K/uL Baso # (Auto) (0-0.2) K/uL Immature Gran # (Auto) (0.00-0.02) K/uL PT (9.0-12.0) Seconds INR (0.9-1.1) Sodium (136-145) mmol/L Potassium (3.5-5.1) mmol/L Chloride (98-107) mmol/L Carbon Dioxide (21-32) mmol/L Anion Gap (3-11) BUN (7-18) mg/dl Creatinine (0.6-1.2) mg/dl Est Cr Clr Drug Dosing ml/min Est GFR ( Amer) ml/min Est GFR (Non-Af Amer) ml/min BUN/Creatinine Ratio (10-20) Glucose (70-99) mg/dl Calcium (8.5-10.1) mg/dl Phosphorus (2.5-4.9) mg/dl Magnesium (1.8-2.4) mg/dl Ferritin 1986.9 H (8-388) ng/ml Total Bilirubin (0.2-1) mg/dl AST (15-37) U/L ALT (12-78) Alkaline Phosphatase (45-117) U/L Troponin I (0-0.045) ng/ml C-Reactive Protein 1.91 H (0-0.29) mg/dl NT-Pro-B Natriuret Pep (0-1800) pg/ml Total Protein (6.4-8.2) gm/dl Albumin (3.4-5.0) gm/dl Globulin (2.5-4.0) gm/dl Albumin/Globulin Ratio (0.9-2) Lipase (73-393) U/L SARS-CoV-2, RNA, NAAT POSITIVE A* (NEGATIVE) Administered Medications Albuterol (Albuterol Hfa 8 Gm Inhaler) 2 puffs INH QIDR [facility] Stop: 10/18/21 12:59 Last Admin: 09/18/21 19:39 Dose: 2 puffs Documented by: [id number] Admin: 09/18/21 16:01 Dose: 2 puffs Documented by: [id number] Guaifenesin (Guaifenesin 600 Mg Tabcr) 1,200 mg PO Q12 ALLISON Stop: 10/18/21 20:59 Last Admin: 09/18/21 20:39 Dose: 1,200 mg Documented by: [id number] Heparin Sodium (Porcine) (Heparin Sod 5,000 Unit/0.5 Ml Vial) 5,000 units SQ Q12 [facility] Stop: 10/18/21 14:29 Last Admin: 09/18/21 20:46 Dose: Not Given Documented by: [id number] Admin: 09/18/21 14:45 Dose: 5,000 units Documented by: [id number] Sodium Chloride (Sodium Chloride 0.9% 10ml Flush) 30 ml IV DAILY@1300 [facility] Stop: 09/22/21 13:01 Last Admin: 09/18/21 16:42 Dose: 30 ml Documented by: [id number] Discontinued Medications Albuterol (Albut/Ipratrop 3mg/0.5mg Neb 3 Ml Vial) 3 ml NEB NOW STA; Protocol Stop: 09/18/21 09:27 Last Admin: 09/18/21 10:27 Dose: 3 ml Documented by: [id number] Albuterol (Albuterol Hfa 8 Gm Inhaler) 2 puffs INH QID ALLISON Stop: 10/18/21 12:59 Last Admin: 09/18/21 12:37 Dose: 2 puffs Documented by: [id number] Dexamethasone Sodium Phosphate (DexamethasonePf 10 Mg/Ml Vial) 10 mg IV NOW ONE Stop: 09/18/21 10:28 Last Admin: 09/18/21 11:11 Dose: 10 mg Documented by: [id number] Guaifenesin (Guaifenesin 600 Mg Tabcr) 600 mg PO NOW STA Stop: 09/18/21 10:29 Last Admin: 09/18/21 11:11 Dose: 600 mg Documented by: [id number] Sodium Chloride (Nss) 500 mls @ 999 mls/hr IV .Q31M ONE Stop: 09/18/21 09:56 Last Infusion: 09/18/21 11:02 Dose: 999 mls/hr Documented by: [id number] Admin: 09/18/21 09:34 Dose: 999 mls/hr Documented by: [id number] Remdesivir 200 mg/ Sodium (Chloride) 250 mls @ 125 mls/hr IV ONE STA; Protocol Stop: 09/18/21 14:17 Last Infusion: 09/18/21 16:42 Dose: 0 mls/hr Documented by: [id number] Admin: 09/18/21 13:06 Dose: 125 mls/hr Documented by: [id number] Imaging Data Radiologist's Impression: Head CT 09/18/21 09:26 CT head/brain wo con CLINICAL HISTORY: 89 years-old Female with fall. Acute head trauma status post fall TECHNIQUE: Multiple axial CT images of the head were obtained without contrast. A dose lowering technique was utilized adhering to the principles of ALARA. CT DOSE: 614.27 mGy.cm COMPARISON: Head CT 11/06/2017 FINDINGS: No acute intracranial hemorrhage, midline shift, intra-axial mass, hydrocephalus, territorial ischemia or abnormal extra-axial collection. Age- related involutional changes with ex vacuo ventriculomegaly. White matter hypodensities suggestive of chronic microvascular ischemic disease. 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 Chronic lacunar infarct of the right basal ganglia. Cerebral vascular calcifications. 10 mm calcification within the prepontine cistern on image 8 series 2 appears stable. Partially calcified 1.4 cm extra-axial lesion of the left posterior fossa on image 6 series 2. The calvarium is intact. There is mild mucosal thickening of the maxillary sinuses. The mastoid air cells appear clear. Developmental incomplete bony fusion involves the posterior arch of C1. Prior bilateral lens repair. IMPRESSION: 1. No acute intracranial abnormality or calvarial fracture. 2. Partially calcified extra-axial 1.4 cm lesion of the left posterior fossa is suggestive of a probable meningioma. 3. 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 A calcified basil ar artery aneurysm could appear similarly. ACT 112: Negative or not required by law. The above report was generated using voice recognition software. It may contain grammatical, syntax or spelling errors. Electronically signed by: Kaden Davis M.D. 09/18/2021 10:21 AM Chest X-Ray 09/18/21 09:27 XR chest 1V portable CLINICAL HISTORY: Chest Pain. COMPARISON STUDY: 08/19/2018 TECHNIQUE: 1 view of the chest FINDINGS: Single frontal view of the chest demonstrates the cardiomediastinal silhouette to be within normal limits. There is evidence for a large hiatal hernia in the retrocardiac space. Patchy interstitial and alveolar opacities are present bilaterally. The findings are most characteristic of a viral type pneumonitis. Covid 19 pneumonia should be excluded. There is no evidence for pleural effusion. There is no evidence for vascular congestion. There is no acute osseous pathology. IMPRESSION: Patchy interstitial and alveolar opacities bilaterally c haracteristic of a viral type pneumonitis and probable early Covid 19 pneumonia. ACT 112: Negative or not required by law. Electronically signed by: Vance Crooks M.D. 09/18/2021 10:00 AM Discharge Plan Visit Data Chief Complaint: Fall Stated Complaint: FALL, WEAKNESS, COUGH ED Provider: Dawood Curry Discharge Problem: Pneumonia due to COVID-19 virus, Hypoxia, Fall from standing Patient Disposition: Admitted As Inpatient Discharge Instructions Interventions: ED Discharge Assessment Last Done: 09/18/21 13:26
[2021-09-18] MEDS ORDERED: ALBUT/IPRATROP 3MG/0.5MG NEB 3 ML VIAL NEB STA (09:26)
[2021-09-18] MEDS ORDERED: SODIUM CHLORIDE 0.9% 500 ML IV ONE (09:26)
[2021-09-18 09:42] LABS: Basophils # (auto) 0.04 K/uL (0-0.2); Basophils % (auto) 0.6 %; Eosinophils # (auto) 0.06 K/uL (0-0.5); Eosinophils % (auto) 0.9 %; Hemoglobin 13.5 g/dL (12.0-16.0); Immature Granulocytes # (auto) 0.24 K/uL (0.00-0.02); Immature Granulocytes % (auto) 3.4 %; Lymphocytes # (auto) 0.71 K/uL (1.2-3.4); Lymphocytes % (auto) 10.2 %; Mean Corpuscular Hemoglobin 30.4 pg (25-34); Mean Corpuscular Hgb Conc 32.1 g/dL (32-36); Mean Corpuscular Volume 94.6 fL (80-100); Mean Platelet Volume 11.1 fL (7.4-10.4); Monocytes # (auto) 0.29 K/uL (0.11-0.59); Monocytes % (auto) 4.2 %; Neutrophils # (auto) 5.62 K/uL (1.4-6.5); Neutrophils % (auto) 80.7 %; Platelet Count 287 K/uL (130-400); RDW Coefficient of Variation 13.7 % (11.5-14.5); RDW Standard Deviation 47.4 fL (36.4-46.3); Red Blood Count 4.44 M/uL (4.2-5.4); White Blood Count 6.96 K/uL (4.8-10.8)
[2021-09-18 10:00] LABS: Alanine Aminotransferase 40 (12-78); Albumin Level 2.5 gm/dl (3.4-5.0); Aspartate Aminotransferase 50 U/L (15-37); BUN Creatinine Ratio 18.2 (10-20); Blood Urea Nitrogen 13 mg/dl (7-18); Calcium 8.7 mg/dl (8.5-10.1); Carbon Dioxide 28 mmol/L (21-32); Chloride 109 mmol/L (98-107); Est GFR (African American) 86.7 ml/min; Est GFR (Non-African American) 74.8 ml/min; Glucose 84 mg/dl (70-99); Lipase 113 U/L (73-393); Magnesium 2.3 mg/dl (1.8-2.4); Potassium 3.6 mmol/L (3.5-5.1); Sodium 143 mmol/L (136-145)
--- NOTE | 2021-09-18 10:01 | XRay Report ---
XR chest 1V portable CLINICAL HISTORY: Chest Pain. COMPARISON STUDY: 08/19/2018 TECHNIQUE: 1 view of the chest FINDINGS: Single frontal view of the chest demonstrates the cardiomediastinal silhouette to be within normal li mits. There is evidence for a large hiatal hernia in the retrocardiac space. Patchy interstitial and alveolar opacities are present bilaterally. The findings are most characteristic of a viral type pneu monitis. Covid 19 pneumonia should be excluded. There is no evidence for pleural effusion. There is n o evidence for vascular congestion. There is no acute osseous pathology. IMPRESSION: Patchy interstitial and alveolar opacities bilaterally characteristic of a viral type pne umonitis and probable early Covid 19 pneumonia. ACT 112: Negative or not required by law. Electronically signed by: Vance Crooks M.D. 09/18/2021 10:00 AM
[2021-09-18 10:06] LABS: Albumin Globulin Ratio 0.7 (0.9-2); Alkaline Phosphatase 104 U/L (45-117); Bilirubin,Total 0.8 mg/dl (0.2-1); Globulin 3.8 gm/dl (2.5-4.0); NT Pro B Type Natriuretic Pept 92 pg/ml (0-1800); Phosphorus 2.7 mg/dl (2.5-4.9); Total Protein 6.3 gm/dl (6.4-8.2); Troponin I < 0.015 ng/ml (0-0.045)
--- NOTE | 2021-09-18 10:22 | CT Scan Report ---
CT head/brain wo con CLINICAL HISTORY: 89 years-old Female with fall. Acute head trauma status post fall TECHNIQUE: Multiple axial CT images of the head were obtained without contrast. A dose lowering tech nique was utilized adhering to the principles of ALARA. CT DOSE: 614.27 mGy.cm COMPARISON: Head CT 11/06/2017 FINDINGS: No acute intracranial hemorrhage, midline shift, intra-axial mass, hydrocephalus, territorial ischemi a or abnormal extra-axial collection. Age-related involutional changes with ex vacuo ventriculomegaly . White matter hypodensities suggestive of chronic microvascular ischemic disease. Chronic infarcts o f the right frontal and parietal lobes with encephalomalacia redemonstrated. Chronic lacunar infarct of the right basal ganglia. Cerebral vascular calcifications. 10 mm calcification within the preponti ne cistern on image 8 series 2 appears stable. Partially calcified 1.4 cm extra-axial lesion of the l eft posterior fossa on image 6 series 2. The calvarium is intact. There is mild mucosal thickening of the maxillary sinuses. The mastoid air cells appear clear. Developmental incomplete bony fusion involves the posterior arch of C1. Prior pelon ateral lens repair. IMPRESSION: 1. No acute intracranial abnormality or calvarial fracture. 2. Partially calcified extra-axial 1.4 cm lesion of the left posterior fossa is suggestive of a proba ble meningioma. 3. 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 ACT 112: Negative or not required by law. The above report was generated using voice recognition software. It may contain grammatical, syntax o r spelling errors. Electronically signed by: Kaden Davis M.D. 09/18/2021 10:21 AM
[2021-09-18] MEDS ORDERED: dexAMETHasone**PF** 10 MG/ML VIAL IV ONE (10:27)
[2021-09-18] MEDS ORDERED: guaiFENesin 600 MG TABCR PO STA (10:28)
--- NOTE | 2021-09-18 11:27 | History & Physical Report ---
Date of Service September 18, 2021 Assessment & Plan (1) Pneumonia due to COVID-19 virus: Plan: - COVID-19 positive, symptoms started about 1 week ago, unvaccinated - Procalcitonin pending - Lymphocytes 0.71, neutrophils 5.62 - CXR reviewed: Appears to have bibasilar opacities, early stage pneumonia. Pt was hypoxic with O2 sats in low 80s, now low 90s on 2-3 L. Does not wear O2 at baseline. - O2 sats 97% on 2 L now - WBC 6.96 - Remdesivir 200 mg IV x 1 then 100 mg daily therafter, decadron 6 mg IV daily. (2) HTN (hypertension): Plan: - Unknown if the pt is truely taking her medications - will hold on diuretics for now unless on PE she appears to volume overloaded - Continue verapamil as this was recently refilled as outpt (3) Fall: Plan: - mechanical, PT/OT consults - Noted on imaging that there is a partially calcified extra-axial 1.4 cm lesion of the left posterior fossa is suggestive of a probable meningioma - Consider neuro consult (4) Osteoarthrosis: Plan: - Stable, chronic (5) GERD (gastroesophageal reflux disease): Plan: - Cont omeprazole (6) HLD (hyperlipidemia): Plan: - Cont atorvastatin 20 mg daily (7) Alzheimer's dementia: Plan: - Appears that this is fairly new diagnosis per PCP this past summer, son also report memory is worsening. - Pt lives at home by self and has 2 agencies coming in to visit her nearly daily - son is asking for placement at [facility]. Pt has suggested this to him previously. - CM to assist with dc planning DVT ppx: - teds, scds CODE: DNR/DNI Dispo: From home, likely to remain in the hospital x 2 days History of Present Illness Chief Complaint: Fall Primary Care Provider: Gurwinder Edwards MD This is a 89-year-old female with PMHx of cerebral aneurysm, HTN, GERD, diffuse osteoarthritis, osteoporosis, HLD and Alzheimer dementia who presents after having sustained an acute fall where she hit her head. She was attempting to maker herself hot chocolate, and reached for a pot and lost her balance, which caused her to fall. She admits to hitting her head. She pressed her home alert button and EMS arrived. Pt is coughing while talking to her over the phone, and says has been present for "a while", but cannot further quantify the timing. She had a slight fever yesterday and took tylenol which improved it. Admit to loss of appetite and states she now weighs 100 lbs, down 15lbs within the past month approximately. No diarrhea, no cramping or pain. She is not vaccinated. Denies known positive contacts. She lives in an assisted living center where there are aids that check in on her once daily. Denies any other acute complaints. No hx of needing O2 and denies any previous respiratory issues. Discussed with her son, Chato, over the phone. He reports that she at baseline does not remember such. She also does not take her medications routinely. She stays in [facility] apartment independently. Home blessed home, and [facility] alternate coming in to visit her. Son mentions that she has requested going to [facility] after her hospital stay. Social: no drinking or alcohol Family Hx: Son denies significantly family history on patients side, of old age, so did siblings. Allergies Allergy/AdvReac Type Severity Reaction Status Date / Time doxycycline Allergy Mild unknown Verified 09/18/21 10:24 Home Medications Medication Instructions Recorded Confirmed Type atorvastatin 20 mg tablet 20 mg PO DAILY 08/19/18 09/18/21 History hydrochlorothiazide 25 mg tablet 25 mg PO DAILY 08/19/18 09/18/21 History omeprazole 20 mg capsule,delayed 20 mg PO DAILY 08/19/18 09/18/21 History release verapamil 120 mg tablet 120 mg PO QAM 08/19/18 09/18/21 History aspirin 81 mg tablet 81 mg PO DAILY 09/18/21 09/18/21 History ferrous sulfate 325 mg PO DAILY 09/18/21 09/18/21 History furosemide 20 mg tablet 20 mg PO DAILY 09/18/21 09/18/21 History Past Med/Surg History Medical History (Updated 09/18/21 @ 12:38 by Rolanda Jaeger PA-C) Cerebral aneurysm, nonruptured GERD (gastroesophageal reflux disease) HTN (hypertension) Left humeral fracture Osteoarthrosis Shoulder fracture, left Subarachnoid hemorrhage Surgical History History of hemiarthroplasty of left shoulder Social History Smoking Status: Never smoker Hx Alcohol Use: No Hx Substance Use: No Preferred Language: Martiniquais Communication Ability: Effective Scalemaker Required: No Beliefs That Will Affect Care: None Current Living Situation: Alone Current Living Situation Comment: Patient lives at home but has caregivers that come to the house Other Information That Helps Us Care for You: No Feels Safe at Home: Yes Safety Concerns: Feels Safe At This Time Assistive Devices: Walker Review of Systems Review of Systems: Constitutional: As per HPI, low grade fever yesterday, denies sweats or chills Eyes: No diplopia, no worsening or blurred vision, no headache, no pain s/p fall ENT: normal hearing, no trouble swallowing Respiratory: + cough, +sputum, no dyspnea at rest, + dyspnea on exertion Cardiovascular: No chest pain, tightness or palpitations Abdomen: + loss of appetite, No pain, nausea, vomiting, diarrhea or constipation Musculoskeletal: No joint pain, calf pain, swelling Neurologic: No weakness, numbness/tingling, + fall today as per HPI, no balance problems Psychiatric: No anxiety or depression Skin: No rash or itch Physical Exam Physical Exam: Please refer to attending addendum as I not see the patient due to being COVID-19 positive. Results & Data Results & Data ([facility]) Vital Signs (Past 12 Hours) Vital Signs Temp Pulse Pulse Resp BP BP Pulse Ox 09/18/21 11:18 73 20 160/75 H 97 09/18/21 09:29 94 H 20 96 09/18/21 09:17 94 09/18/21 09:16 36.5 C 71 19 155/73 H 84 L Laboratory Results 09/18/21 09/18/21 09/18/21 09:42 09:30 09:30 WBC 6.96 RBC 4.44 Hgb 13.5 Hct 42.0 MCV 94.6 MCH 30.4 MCHC 32.1 RDW Std Deviation 47.4 H RDW Coeff of Kishan 13.7 Plt Count 287 MPV 11.1 H Immature Gran % (Auto) 3.4 Neut % (Auto) 80.7 Lymph % (Auto) 10.2 [place] % (Auto) 4.2 Eos % (Auto) 0.9 Baso % (Auto) 0.6 Neut # (Auto) 5.62 Lymph # (Auto) 0.71 L [place] # (Auto) 0.29 Eos # (Auto) 0.06 Baso # (Auto) 0.04 Immature Gran # (Auto) 0.24 H PT 10.0 INR 1.0 Sodium Potassium Chloride Carbon Dioxide Anion Gap BUN Creatinine Est Cr Clr Drug Dosing Est GFR ( Amer) Est GFR (Non-Af Amer) BUN/Creatinine Ratio Glucose Calcium Phosphorus Magnesium Total Bilirubin AST ALT Alkaline Phosphatase Troponin I NT-Pro-B Natriuret Pep Total Protein Albumin Globulin Albumin/Globulin Ratio Lipase SARS-CoV-2, RNA, NAAT POSITIVE A* 09/18/21 09:30 WBC RBC Hgb Hct MCV MCH MCHC RDW Std Deviation RDW Coeff of Kishan Plt Count MPV Immature Gran % (Auto) Neut % (Auto) Lymph % (Auto) [place] % (Auto) Eos % (Auto) Baso % (Auto) Neut # (Auto) Lymph # (Auto) [place] # (Auto) Eos # (Auto) Baso # (Auto) Immature Gran # (Auto) PT INR Sodium 143 Potassium 3.6 Chloride 109 H Carbon Dioxide 28 Anion Gap 6.0 BUN 13 Creatinine 0.72 Est Cr Clr Drug Dosing 38.0 Est GFR ( Amer) 86.7 Est GFR (Non-Af Amer) 74.8 BUN/Creatinine Ratio 18.2 Glucose 84 Calcium 8.7 Phosphorus 2.7 Magnesium 2.3 Total Bilirubin 0.8 AST 50 H ALT 40 Alkaline Phosphatase 104 Troponin I < 0.015 NT-Pro-B Natriuret Pep 92 Total Protein 6.3 L Albumin 2.5 L Globulin 3.8 Albumin/Globulin Ratio 0.7 L Lipase 113 SARS-CoV-2, RNA, NAAT Diagnostic Findings Head CT 09/18/21 09:26 CT head/brain wo con CLINICAL HISTORY: 89 years-old Female with fall. Acute head trauma status post fall TECHNIQUE: Multiple axial CT images of the head were obtained without contrast. A dose lowering technique was utilized adhering to the principles of ALARA. CT DOSE: 614.27 mGy.cm COMPARISON: Head CT 11/06/2017 FINDINGS: No acute intracranial hemorrhage, midline shift, intra-axial mass, hydrocephalus, territorial ischemia or abnormal extra-axial collection. Age- related involutional changes with ex vacuo ventriculomegaly. White matter hypodensities suggestive of chronic microvascular ischemic disease. 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 Chronic lacunar infarct of the right basal ganglia. Cerebral vascular calcifications. 10 mm calcification within the prepontine cistern on image 8 series 2 appears stable. Partially calcified 1.4 cm extra-axial lesion of the left posterior fossa on image 6 series 2. The calvarium is intact. There is mild mucosal thickening of the maxillary sinuses. The mastoid air cells appear clear. Developmental incomplete bony fusion involves the posterior arch of C1. Prior bilateral lens repair. IMPRESSION: 1. No acute intracranial abnormality or calvarial fracture. 2. Partially calcified extra-axial 1.4 cm lesion of the left posterior fossa is suggestive of a probable meningioma. 3. 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 ACT 112: Negative or not required by law. The above report was generated using voice recognition software. It may contain grammatical, syntax or spelling errors. Electronically signed by: Kaden Davis M.D. 09/18/2021 10:21 AM Chest X-Ray 09/18/21 09:27 XR chest 1V portable CLINICAL HISTORY: Chest Pain. COMPARISON STUDY: 08/19/2018 TECHNIQUE: 1 view of the chest FINDINGS: Single frontal view of the chest demonstrates the cardiomediastinal silhouette to be within normal limits. There is evidence for a large hiatal hernia in the retrocardiac space. Patchy interstitial and alveolar opacities are present bilaterally. The findings are most characteristic of a viral type pneumonitis. Covid 19 pneumonia should be excluded. There is no evidence for pleural effusion. There is no evidence for vascular congestion. There is no acute osseous pathology. IMPRESSION: Patchy interstitial and alveolar opacities bilaterally characteristic of a viral type pneumonitis and probable early Covid 19 pneumonia. ACT 112: Negative or not required by law. Electronically signed by: Vance Crooks M.D. 09/18/2021 10:00 AM ECG Additional Comments: 18-SEP-2021 09:51:13 [facility]-EDSTAT ROUTINE RETRIEVAL Poor data quality, interpretation may be adversely affected Normal sinus rhythm Minimal voltage criteria for LVH, may be normal variant Nonspecific T wave abnormality Abnormal ECG When compared with ECG of 19-AUG-2018 11:36, T wave inversion less evident in Lateral leads 25mm/s 10mm/mV 150Hz 9.0.9 12SL 241 HD ENIO: 12 Unconfirmed Vent. rate 61 BPM IL interval 180 ms QRS duration 84 ms QT/QTc 456/459 m Code Status & VTE Plan Code Status DNR/DNI- discussed with the patient at bedside Supervising Physician Co-Signing Physician Notes 60-year-old lady with PMH of cerebral aneurysm, HTN, GERD, diffuse osteoarthritis, osteoporosis, HLD and Alzheimer's dementia presented 09/18 with fall x1 today morning and hitting her head. Per patient she reports losing balance and falling, denies any tripping, denies any nausea/sweating/dizziness/chest pain/palpitation/unconsciousness prior, around and after the fall. She reports she has had fall many times in the past. She has had respiratory symptoms since 1 week [employer]ISUAL [employer], procalcitonin and BNP is negative, chest x-ray suggestive of early stage pneumonia, she turned Covid positive. Continue with remdesivir and dexamethasone 09/18. Incentive spirometer/flutter valve/proning as able. Upon examination: GENERAL: Alert and oriented x3. NAD, on 1L, scoliosis and thoracis kyphosis noted. HEENT: No pallor, no icterus. Pupils equal, round and reactive to light. Oral mucosa moist. NECK: No JVD, no neck masses. HEART: S1 and S2 heard. Regular rate and rhythm. No murmur, no gallop. RESPIRATORY SYSTEM: No accessory muscle use. No wheezing, no crackles. Decreased breath sounds ABDOMEN: Soft, bowel sounds present, nontender, no distention. CENTRAL NERVOUS SYSTEM: No facial droop. Speech is clear. Obeys simple commands. Moves extremities. EXTREMITIES: No edema, no erythema seen. I have seen and examined the patient and have discussed the case with the provider above. I agree with the assessment and plan as stated.
[2021-09-18 12:04] LABS: C Reactive Protein 1.91 mg/dl (0-0.29); Ferritin 1986.9 ng/ml (8-388)
[2021-09-18] MEDS ORDERED: REMDESIVIR 200 MG in SODIUM CHLORIDE 0.9% 210 ML IV STA (12:18)
[2021-09-18] MEDS ORDERED: ALBUTEROL HFA 8 GM INHALER INH SCH (13:00)
[2021-09-18] MEDS: HEPARIN SOD 5,000 UNIT/0.5 ML VIAL SQ SCH ×3 (14:45→20:46)
[2021-09-18] MEDS: ALBUTEROL HFA 8 GM INHALER INH SCH ×2 (16:01→19:39)
[2021-09-18] MEDS: SODIUM CHLORIDE 0.9% 10ML FLUSH IV SCH (16:42)
[2021-09-18] MEDS: guaiFENesin 600 MG TABCR PO SCH (20:39)
[2021-09-19] MEDS: ACETAMINOPHEN 325 MG TAB PO PRN (05:59)
[2021-09-19 06:48] LABS: Hematocrit (blood only) 38.1 % (37-47); Hemoglobin 12.2 g/dL (12.0-16.0); Mean Corpuscular Hemoglobin 29.9 pg (25-34); Mean Corpuscular Volume 93.4 fL (80-100); Mean Platelet Volume 10.9 fL (7.4-10.4); Platelet Count 252 K/uL (130-400); RDW Coefficient of Variation 13.6 % (11.5-14.5); RDW Standard Deviation 46.4 fL (36.4-46.3); Red Blood Count 4.08 M/uL (4.2-5.4); White Blood Count 11.08 K/uL (4.8-10.8)
[2021-09-19 07:24] LABS: Albumin Level 2.2 gm/dl (3.4-5.0); Calcium 8.2 mg/dl (8.5-10.1); Creatinine Clr Calc Pharmacy 37.2 ml/min; Est GFR (African American) 86.7 ml/min; Est GFR (Non-African American) 74.8 ml/min; Potassium 3.4 mmol/L (3.5-5.1)
[2021-09-19 07:26] LABS: Albumin Globulin Ratio 0.6 (0.9-2); Bilirubin,Total 0.7 mg/dl (0.2-1); Globulin 3.5 gm/dl (2.5-4.0); Total Protein 5.7 gm/dl (6.4-8.2)
[2021-09-19] MEDS: dexAMETHasone 6 MG in SYRINGE 0 ML IV SCH (07:51)
[2021-09-19] MEDS: VERAPAMIL HCL 120 MG TABCR PO SCH (07:51)
[2021-09-19] MEDS: guaiFENesin 600 MG TABCR PO SCH ×2 (07:51→20:42)
[2021-09-19] MEDS: HEPARIN SOD 5,000 UNIT/0.5 ML VIAL SQ SCH ×2 (07:52→20:42)
[2021-09-19] MEDS: ALBUTEROL HFA 8 GM INHALER INH SCH (08:23)
[2021-09-19] MEDS ORDERED: ALBUTEROL HFA 8 GM INHALER INH PRN (08:34)
[2021-09-19] MEDS: FERROUS SULFATE 325 MG TAB PO SCH (09:39)
[2021-09-19] MEDS: ATORVASTATIN 20 MG TAB PO SCH (09:39)
[2021-09-19] MEDS: PANTOprazole 40 MG TAB PO SCH (09:43)
[2021-09-19] MEDS: ASPIRIN 81 MG ECTAB PO SCH (09:44)
[2021-09-19] MEDS ORDERED: POTASSIUM CHLORIDE CRTAB 20 MEQ TABCR PO ONE (10:12)
[2021-09-19] MEDS: REMDESIVIR 100 MG in SODIUM CHLORIDE 0.9% 230 ML IV SCH (11:23)
[2021-09-19] MEDS: SODIUM CHLORIDE 0.9% 10ML FLUSH IV SCH (13:18)
--- NOTE | 2021-09-19 20:03 | Hospitalist Progress Note ---
Date of Service September 19, 2021 Assessment & Plan (1) Pneumonia due to COVID-19 virus: Plan: per admitting service notes with addendum: - COVID-19 positive, symptoms started about 1 week ago, unvaccinated - Procalcitonin pending - Lymphocytes 0.71, neutrophils 5.62 - CXR reviewed: Appears to have bibasilar opacities, early stage pneumonia. Pt was hypoxic with O2 sats in low 80s, now low 90s on 2-3 L. Does not wear O2 at baseline. - O2 sats 97% on 2 L now - WBC 6.96 - Remdesivir 200 mg IV x 1 then 100 mg daily therafter, decadron 6 mg IV daily. 09/19 stable overall on 3 L NC continue Decadron + Remdesivir monitor closely , including renal and liver function (2) HTN (hypertension): Plan: - Continue verapamil (3) Fall: Plan: - mechanical, PT/OT consults - Noted on imaging that there is a partially calcified extra-axial 1.4 cm lesion of the left posterior fossa is suggestive of a probable meningioma - Consider neuro consult (4) Osteoarthrosis: Plan: - Stable, chronic (5) GERD (gastroesophageal reflux disease): Plan: - Cont omeprazole (6) HLD (hyperlipidemia): Plan: - Cont atorvastatin 20 mg daily (7) Alzheimer's dementia: Plan: - Appears that this is fairly new diagnosis per PCP this past summer, son also report memory is worsening. - Pt lives at home by self and has 2 agencies coming in to visit her nearly daily - son is asking for placement at [facility]. Pt has suggested this to him previously. - CM to assist with dc planning DVT ppx: - teds, scds CODE: DNR/DNI Dispo: pending Admission and Anticipated Discharge Date Admission Date: September 18, 2021 Subjective ff up for COVID 19 , hypoxia etc seen resting in bed, sitting up on 3 L NC comfortable alert, oriented states she feels about the same as yesterday no active dyspnea no chest pain,, palpitations, dizziness no abdominal pain, nausea, leg pain no other symptoms Review of Systems Review of Systems: all noted and negative except for above Physical Exam Physical Exam: General- oriented x 2, not in distress, speaks in sentences with no effort or accessory muscle use frail Head- atraumatic Eyes- PERRL, EOMI, anicteric ENT- oropharynx clear Neck- supple, no JVD, no adenopathy, no thyromegaly; carotids +2/2, no bruits appreciated Lungs- (+) rales at the bases Heart- normal rate, regular rhythm; no murmur, no gallop, no rub appreciated Abdomen- normal bowel sounds, nondistended, soft, nontender, no masses or hepatosplenomegaly Extremities- no pretibial edema, no calf tenderness; peripheral pulses intact Neuro- alert, oriented x 2; CN 2-12 grossly intact; motor 5/5 bilaterally;sensation 100% on all extremities; no other gross focal neurologic deficits Skin- warm & dry Results & Data Results & Data ([facility]) Vital Signs (Past 12 Hours) Vital Signs Temp Pulse Pulse Resp BP Pulse Ox Pulse Ox 09/19/21 15:52 36.5 C 71 20 110/65 95 09/19/21 14:10 89 L 09/19/21 11:00 36.7 C 70 16 138/80 91 09/19/21 09:28 87 L 09/19/21 08:05 88 Pulse Ox 09/19/21 15:52 09/19/21 14:10 91 09/19/21 11:00 09/19/21 09:28 09/19/21 08:05 all noted and reviewed including below
--- NOTE | 2021-09-20 06:22 | Electrocardiogram Report ---
Test Reason : Blood Pressure : / mmHG Vent. Rate : 061 BPM Atrial Rate : 061 BPM P-R Int : 180 ms QRS Dur : 084 ms QT Int : 456 ms P-R-T Axes : 043 -21 -14 degrees QTc Int : 459 ms Poor data quality, interpretation may be adversely affected Normal sinus rhythm Minimal voltage criteria for LVH, may be normal variant T wave abnormality, consider anterior ischemia Abnormal ECG When compared with ECG of 19-AUG-2018 11:36, T wave inversion now evident in Inferior leads Confirmed by Marquis Worrell ([id number]) on 09/20/2021 6:21:46 AM Referred By: Confirmed By:Marquis Worrell
[2021-09-20 07:08] LABS: Hematocrit (blood only) 40.7 % (37-47); Hemoglobin 13.1 g/dL (12.0-16.0); Mean Corpuscular Hemoglobin 30.4 pg (25-34); Mean Corpuscular Hgb Conc 32.2 g/dL (32-36); Mean Corpuscular Volume 94.4 fL (80-100); Mean Platelet Volume 10.7 fL (7.4-10.4); Platelet Count 259 K/uL (130-400); RDW Coefficient of Variation 13.7 % (11.5-14.5); RDW Standard Deviation 47.3 fL (36.4-46.3); Red Blood Count 4.31 M/uL (4.2-5.4); White Blood Count 11.25 K/uL (4.8-10.8)
[2021-09-20] MEDS: ASPIRIN 81 MG ECTAB PO SCH (07:42)
[2021-09-20] MEDS: guaiFENesin 600 MG TABCR PO SCH ×2 (07:43→21:30)
[2021-09-20] MEDS: PANTOprazole 40 MG TAB PO SCH (07:43)
[2021-09-20] MEDS: VERAPAMIL HCL 120 MG TABCR PO SCH (07:44)
[2021-09-20] MEDS: ATORVASTATIN 20 MG TAB PO SCH (07:44)
[2021-09-20] MEDS: HEPARIN SOD 5,000 UNIT/0.5 ML VIAL SQ SCH ×2 (07:45→21:30)
[2021-09-20] MEDS: FERROUS SULFATE 325 MG TAB PO SCH (07:45)
[2021-09-20 07:48] LABS: Albumin Level 2.3 gm/dl (3.4-5.0); BUN Creatinine Ratio 24.1 (10-20); Calcium 8.3 mg/dl (8.5-10.1); Creatinine Clr Calc Pharmacy 41.9 ml/min; Est GFR (African American) 92.8 ml/min; Est GFR (Non-African American) 80.1 ml/min; Potassium 3.9 mmol/L (3.5-5.1)
[2021-09-20] MEDS: ACETAMINOPHEN 325 MG TAB PO PRN (07:50)
[2021-09-20 07:51] LABS: Albumin Globulin Ratio 0.7 (0.9-2); Bilirubin,Total 0.9 mg/dl (0.2-1); Globulin 3.5 gm/dl (2.5-4.0); Total Protein 5.8 gm/dl (6.4-8.2)
[2021-09-20] MEDS: dexAMETHasone 6 MG in SYRINGE 0 ML IV SCH (08:37)
[2021-09-20] MEDS: REMDESIVIR 100 MG in SODIUM CHLORIDE 0.9% 230 ML IV SCH (12:51)
--- NOTE | 2021-09-20 15:12 | Hospitalist Progress Note ---
Date of Service September 20, 2021 Assessment & Plan (1) Pneumonia due to COVID-19 virus: Plan: per admitting service notes with addendum: - COVID-19 positive, symptoms started about 1 week ago, unvaccinated - Procalcitonin pending - Lymphocytes 0.71, neutrophils 5.62 - CXR reviewed: Appears to have bibasilar opacities, early stage pneumonia. Pt was hypoxic with O2 sats in low 80s, now low 90s on 2-3 L. Does not wear O2 at baseline. - O2 sats 97% on 2 L now - WBC 6.96 - Remdesivir 200 mg IV x 1 then 100 mg daily therafter, decadron 6 mg IV daily. 09/20 stable overall on 3 L NC continue Decadron + Remdesivir monitor closely , including renal and liver function continue proning, IS, FV (2) HTN (hypertension): Plan: - Continue verapamil (3) Fall: Plan: - mechanical, PT/OT consults - Noted on imaging that there is a partially calcified extra-axial 1.4 cm lesion of the left posterior fossa is suggestive of a probable meningioma (4) Osteoarthrosis: Plan: - Stable, chronic (5) GERD (gastroesophageal reflux disease): Plan: - Cont omeprazole (6) HLD (hyperlipidemia): Plan: - Cont atorvastatin 20 mg daily (7) Alzheimer's dementia: Plan: - Appears that this is fairly new diagnosis per PCP this past summer, son also report memory is worsening. - Pt lives at home by self and has 2 agencies coming in to visit her nearly daily - son is asking for placement at [facility]. Pt has suggested this to him previously. - CM to assist with dc planning DVT ppx: - teds, scds CODE: DNR/DNI Dispo: pending Admission and Anticipated Discharge Date Admission Date: September 18, 2021 Subjective ff up for covid 19 pneumonia, hypoxia, etc seen resting in bed, comfortable watching TV on 3 L NC states she feels fine overall, same as yesterday no chest pain, dyspnea, palpitations, dizziness appetite ok no nausea, abdominal pain,leg pain has back pain with movement- chronic no other symptoms Review of Systems Review of Systems: all noted and negative except for above Physical Exam Physical Exam: General- oriented x 2, not in distress, speaks in sentences with no effort or accessory muscle use Eyes- anicteric Neck- no JVD Lungs- mild rales at the bases Heart- normal rate, regular rhythm; no murmurs Abdomen- normal bowel sounds, nondistended, soft, nontender Extremities- no pretibial edema, no calf tenderness Neuro- alert, oriented x 2; no new gross focal neurologic deficits Skin- warm & dry Results & Data Results & Data ([facility]) Vital Signs (Past 12 Hours) Vital Signs Temp Pulse Pulse Resp BP Pulse Ox 09/20/21 11:59 36.5 C 73 19 112/72 93 09/20/21 08:00 75 09/20/21 06:49 36.5 C 78 20 161/77 H 94 all noted and reviewed including below
[2021-09-20] MEDS: SODIUM CHLORIDE 0.9% 10ML FLUSH IV SCH (16:06)
[2021-09-20] MEDS: ACETAMINOPHEN 500 MG TAB PO SCH ×2 (16:46→21:30)
[2021-09-21 06:52] LABS: Hematocrit (blood only) 37.8 % (37-47); Hemoglobin 12.5 g/dL (12.0-16.0); Mean Corpuscular Hemoglobin 31.2 pg (25-34); Mean Corpuscular Hgb Conc 33.1 g/dL (32-36); Mean Corpuscular Volume 94.3 fL (80-100); Platelet Count 282 K/uL (130-400); RDW Standard Deviation 48.4 fL (36.4-46.3); Red Blood Count 4.01 M/uL (4.2-5.4)
[2021-09-21 07:14] LABS: BUN Creatinine Ratio 33.1 (10-20); Creatinine Clr Calc Pharmacy 41.2 ml/min; Est GFR (African American) 91.9 ml/min; Est GFR (Non-African American) 79.3 ml/min; Potassium 3.8 mmol/L (3.5-5.1)
[2021-09-21 07:17] LABS: Albumin Globulin Ratio 0.6 (0.9-2); Bilirubin,Total 0.6 mg/dl (0.2-1); Globulin 3.5 gm/dl (2.5-4.0); Total Protein 5.5 gm/dl (6.4-8.2)
[2021-09-21] MEDS: dexAMETHasone 6 MG in SYRINGE 0 ML IV SCH (08:26)
[2021-09-21] MEDS: ACETAMINOPHEN 500 MG TAB PO SCH ×3 (08:26→20:59)
[2021-09-21] MEDS: ATORVASTATIN 20 MG TAB PO SCH (08:27)
[2021-09-21] MEDS: ASPIRIN 81 MG ECTAB PO SCH (08:27)
[2021-09-21] MEDS: guaiFENesin 600 MG TABCR PO SCH ×2 (08:27→20:59)
[2021-09-21] MEDS: PANTOprazole 40 MG TAB PO SCH (08:27)
[2021-09-21] MEDS: FERROUS SULFATE 325 MG TAB PO SCH (08:27)
[2021-09-21] MEDS: HEPARIN SOD 5,000 UNIT/0.5 ML VIAL SQ SCH ×2 (08:28→20:59)
[2021-09-21] MEDS: VERAPAMIL HCL 120 MG TABCR PO SCH (08:28)
[2021-09-21] MEDS: REMDESIVIR 100 MG in SODIUM CHLORIDE 0.9% 230 ML IV SCH (13:06)
[2021-09-21] MEDS: SODIUM CHLORIDE 0.9% 10ML FLUSH IV SCH (13:06)
--- NOTE | 2021-09-21 13:17 | Hospitalist Progress Note ---
Date of Service September 21, 2021 Assessment & Plan (1) Pneumonia due to COVID-19 virus: Plan: per admitting service notes with addendum: - COVID-19 positive, symptoms started about 1 week ago, unvaccinated - Procalcitonin pending - Lymphocytes 0.71, neutrophils 5.62 - CXR reviewed: Appears to have bibasilar opacities, early stage pneumonia. Pt was hypoxic with O2 sats in low 80s, now low 90s on 2-3 L. Does not wear O2 at baseline. - O2 sats 97% on 2 L now - WBC 6.96 - Remdesivir 200 mg IV x 1 then 100 mg daily therafter, decadron 6 mg IV daily. 09/21 Patient remains stable overall on 3 L NC continue Decadron + Remdesivir day #3 Renal and liver function tests stable continue proning, IS, FV Heparin for DVT prophylaxis Transition to SNF per case management (2) HTN (hypertension): Plan: - Continue verapamil (3) Fall: Plan: - mechanical, PT/OT consults - Noted on imaging that there is a partially calcified extra-axial 1.4 cm lesion of the left posterior fossa is suggestive of a probable meningioma (4) Osteoarthrosis: Plan: - Stable, chronic (5) GERD (gastroesophageal reflux disease): Plan: - Cont omeprazole (6) HLD (hyperlipidemia): Plan: - Cont atorvastatin 20 mg daily (7) Alzheimer's dementia: Plan: - Appears that this is fairly new diagnosis per PCP this past summer, son also report memory is worsening. - Pt lives at home by self and has 2 agencies coming in to visit her nearly daily - son is asking for placement at [facility]. Pt has suggested this to him previously. - CM to assist with dc planning DVT ppx: Heparin for DVT prophylaxis CODE: DNR/DNI Dispo: pending Admission and Anticipated Discharge Date Admission Date: September 18, 2021 Subjective Follow-up for acute hypoxic respiratory failure, COVID-19 pneumonia, etc. Seen sitting up in bed, comfortable, awake, alert, bright Comfortable Not in distress Answers most questions appropriately States she feels fine overall Breathing is okay No chest pain, palpitations, dizziness Appetite is good No leg pain No other symptoms Review of Systems Review of Systems: all noted and negative except for above Physical Exam Physical Exam: General- oriented x 2, not in distress, speaks in sentences with no effort or accessory muscle use Eyes- anicteric Neck- no JVD Lungs-fine crackles at the bases, no wheezing, good air entry bilaterally Heart- normal rate, regular rhythm; no murmurs Abdomen- normal bowel sounds, nondistended, soft, nontender Extremities- no pretibial edema, no calf tenderness Neuro- alert, oriented x 2; no gross focal neurologic deficits Skin- warm & dry Results & Data Results & Data ([facility]) Vital Signs (Past 12 Hours) Vital Signs Temp Pulse Pulse Resp BP BP Pulse Ox 09/21/21 11:45 36.0 C L 72 18 112/70 96 09/21/21 08:15 59 L 09/21/21 08:00 36.5 C 65 18 154/78 H 95 09/21/21 03:38 36.4 C L 54 L 20 128/74 97 all noted and reviewed including below
[2021-09-22] MEDS: dexAMETHasone 6 MG in SYRINGE 0 ML IV SCH (08:54)
[2021-09-22] MEDS: guaiFENesin 600 MG TABCR PO SCH ×2 (08:55→20:45)
[2021-09-22] MEDS: FERROUS SULFATE 325 MG TAB PO SCH (08:55)
[2021-09-22] MEDS: VERAPAMIL HCL 120 MG TABCR PO SCH (08:55)
[2021-09-22] MEDS: ATORVASTATIN 20 MG TAB PO SCH (08:55)
[2021-09-22] MEDS: PANTOprazole 40 MG TAB PO SCH (08:55)
[2021-09-22] MEDS: ACETAMINOPHEN 500 MG TAB PO SCH ×3 (08:55→20:45)
[2021-09-22] MEDS: ASPIRIN 81 MG ECTAB PO SCH (08:55)
[2021-09-22] MEDS: HEPARIN SOD 5,000 UNIT/0.5 ML VIAL SQ SCH ×2 (08:56→20:45)
[2021-09-22] MEDS: REMDESIVIR 100 MG in SODIUM CHLORIDE 0.9% 230 ML IV SCH (11:41)
[2021-09-22] MEDS: SODIUM CHLORIDE 0.9% 10ML FLUSH IV SCH (12:56)
--- NOTE | 2021-09-22 13:10 | Hospitalist Progress Note ---
Date of Service September 22, 2021 Assessment & Plan (1) Pneumonia due to COVID-19 virus: Plan: per admitting service notes with addendum: - COVID-19 positive, symptoms started about 1 week ago, unvaccinated - Procalcitonin pending - Lymphocytes 0.71, neutrophils 5.62 - CXR reviewed: Appears to have bibasilar opacities, early stage pneumonia. Pt was hypoxic with O2 sats in low 80s, now low 90s on 2-3 L. Does not wear O2 at baseline. - O2 sats 97% on 2 L now - WBC 6.96 - Remdesivir 200 mg IV x 1 then 100 mg daily therafter, decadron 6 mg IV daily. 09/22 Continues to be stable on 2 to 3 L of oxygen with nasal cannula continue Decadron + Remdesivir day #4 Renal and liver function tests stable continue proning, IS, FV Heparin for DVT prophylaxis Transition to SNF per case management (2) HTN (hypertension): Plan: - Continue verapamil (3) Fall: Plan: - mechanical, PT/OT consults - Noted on imaging that there is a partially calcified extra-axial 1.4 cm lesion of the left posterior fossa is suggestive of a probable meningioma (4) Osteoarthrosis: Plan: - Stable, chronic (5) GERD (gastroesophageal reflux disease): Plan: - Cont omeprazole (6) HLD (hyperlipidemia): Plan: - Cont atorvastatin 20 mg daily (7) Alzheimer's dementia: Plan: - Appears that this is fairly new diagnosis per PCP this past summer, son also report memory is worsening. - Pt lives at home by self and has 2 agencies coming in to visit her nearly daily - son is asking for placement at [facility]. Pt has suggested this to him previously. - CM to assist with dc planning DVT ppx: Heparin for DVT prophylaxis CODE: DNR/DNI Dispo: pending Admission and Anticipated Discharge Date Admission Date: September 18, 2021 Subjective Follow-up for acute hypoxic respiratory failure, COVID-19 pneumonia, etc. seen resting in bed, comfortable On 2 L of oxygen via nasal cannula, comfortable, watching TV States she feels fine overall Breathing is slightly improving No cough, shortness of breath on exam No chest pain, nausea vomiting, diarrhea, leg pain No other symptoms Review of Systems Review of Systems: all noted and negative except for above Physical Exam Physical Exam: General- oriented x2, not in distress, speaks in sentences with no effort or accessory muscle use Eyes- anicteric Neck- no JVD Lungs-faint rales at the bases, no wheezing Heart- normal rate, regular rhythm; no murmurs Abdomen- normal bowel sounds, nondistended, soft, nontender Extremities- no pretibial edema, no calf tenderness Neuro- alert, oriented x 2; no new gross focal neurologic deficits Skin- warm & dry Results & Data Results & Data ([facility]) Vital Signs (Past 12 Hours) Vital Signs Temp Pulse Resp BP BP Pulse Ox 09/22/21 11:41 36.5 C 64 19 130/75 93 09/22/21 08:00 36.5 C 67 18 143/73 H 95 09/22/21 03:26 36.7 C 65 18 126/60 94
[2021-09-22] MEDS: ACETAMINOPHEN 325 MG TAB PO PRN (18:14)
[2021-09-23] MEDS: guaiFENesin 600 MG TABCR PO SCH ×2 (07:59→20:36)
[2021-09-23] MEDS: PANTOprazole 40 MG TAB PO SCH (08:00)
[2021-09-23] MEDS: dexAMETHasone 6 MG in SYRINGE 0 ML IV SCH (08:00)
[2021-09-23] MEDS: HEPARIN SOD 5,000 UNIT/0.5 ML VIAL SQ SCH ×2 (08:00→20:36)
[2021-09-23] MEDS: ATORVASTATIN 20 MG TAB PO SCH (08:00)
[2021-09-23] MEDS: ASPIRIN 81 MG ECTAB PO SCH (08:00)
[2021-09-23] MEDS: FERROUS SULFATE 325 MG TAB PO SCH (08:00)
[2021-09-23] MEDS: VERAPAMIL HCL 120 MG TABCR PO SCH (08:01)
[2021-09-23] MEDS: ACETAMINOPHEN 500 MG TAB PO SCH ×4 (08:10→20:36)
[2021-09-23 09:19] LABS: BUN Creatinine Ratio 37.6 (10-20); Calcium 8.1 mg/dl (8.5-10.1); Creatinine Clr Calc Pharmacy 45.8 ml/min; Est GFR (African American) 95.9 ml/min; Est GFR (Non-African American) 82.8 ml/min; Potassium 3.8 mmol/L (3.5-5.1)
--- NOTE | 2021-09-23 16:42 | Hospitalist Progress Note ---
Date of Service September 23, 2021 Assessment & Plan (1) Pneumonia due to COVID-19 virus: Plan: per admitting service notes with addendum: - COVID-19 positive, symptoms started about 1 week ago, unvaccinated - Procalcitonin pending - Lymphocytes 0.71, neutrophils 5.62 - CXR reviewed: Appears to have bibasilar opacities, early stage pneumonia. Pt was hypoxic with O2 sats in low 80s, now low 90s on 2-3 L. Does not wear O2 at baseline. - O2 sats 97% on 2 L now - WBC 6.96 - Remdesivir 200 mg IV x 1 then 100 mg daily therafter, decadron 6 mg IV daily. 09/23 Successfully weaned off oxygen supplementation Now on room air continue Decadron + Remdesivir day #5 Renal and liver function tests stable continue proning, IS, FV Heparin for DVT prophylaxis Transition to SNF per case management (2) HTN (hypertension): Plan: - Continue verapamil (3) Fall: Plan: - mechanical, PT/OT consults - Noted on imaging that there is a partially calcified extra-axial 1.4 cm lesion of the left posterior fossa is suggestive of a probable meningioma (4) Osteoarthrosis: Plan: - Stable, chronic (5) GERD (gastroesophageal reflux disease): Plan: - Cont omeprazole (6) HLD (hyperlipidemia): Plan: - Cont atorvastatin 20 mg daily (7) Alzheimer's dementia: Plan: - Appears that this is fairly new diagnosis per PCP this past summer, son also report memory is worsening. - Pt lives at home by self and has 2 agencies coming in to visit her nearly daily - son is asking for placement at [facility] facility. Pt has suggested this to him previously. - CM to assist with dc planning DVT ppx: Heparin for DVT prophylaxis CODE: DNR/DNI Dispo: pending Admission and Anticipated Discharge Date Admission Date: September 18, 2021 Subjective Follow-up for hypoxic respiratory failure, COVID-19 pneumonia, etc. Seen resting in bed, sitting up, on room air Comfortable, not in distress States she feels fine overall Breathing is better No chest pain, shortness of breath, palpitations, dizziness, headache, abdominal pain, nausea vomiting No other symptoms Review of Systems Review of Systems: all noted and negative except for above Physical Exam Physical Exam: General- oriented x 1-2, not in distress, speaks in sentences with no effort or accessory muscle use Eyes- anicteric Neck- no JVD Lungs-faint rales at the bases, no wheezing, good air entry bilaterally Heart- normal rate, regular rhythm; no murmurs Abdomen- normal bowel sounds, nondistended, soft, nontender Extremities- no pretibial edema, no calf tenderness Neuro- alert, oriented x 1-2; no new gross focal neurologic deficits Skin- warm & dry Results & Data Results & Data ([facility]) Vital Signs (Past 12 Hours) Vital Signs Temp Pulse Resp BP Pulse Ox 09/23/21 16:10 36.3 C L 65 18 125/72 95 09/23/21 07:50 36.5 C 60 16 178/83 H 99 09/23/21 05:37 96 all noted and reviewed including below
[2021-09-24 06:47] LABS: Hematocrit (blood only) 41.9 % (37-47); Hemoglobin 13.2 g/dL (12.0-16.0); Mean Corpuscular Hemoglobin 30.1 pg (25-34); Mean Corpuscular Hgb Conc 31.5 g/dL (32-36); Mean Corpuscular Volume 95.4 fL (80-100); Mean Platelet Volume 11.2 fL (7.4-10.4); Platelet Count 354 K/uL (130-400); RDW Coefficient of Variation 14.1 % (11.5-14.5); RDW Standard Deviation 48.8 fL (36.4-46.3); Red Blood Count 4.39 M/uL (4.2-5.4); White Blood Count 8.71 K/uL (4.8-10.8)
[2021-09-24] MEDS: guaiFENesin 600 MG TABCR PO SCH ×2 (07:54→20:37)
[2021-09-24] MEDS: FERROUS SULFATE 325 MG TAB PO SCH (07:55)
[2021-09-24] MEDS: ATORVASTATIN 20 MG TAB PO SCH (07:55)
[2021-09-24] MEDS: dexAMETHasone 6 MG in SYRINGE 0 ML IV SCH (07:55)
[2021-09-24] MEDS: VERAPAMIL HCL 120 MG TABCR PO SCH (07:55)
[2021-09-24] MEDS: HEPARIN SOD 5,000 UNIT/0.5 ML VIAL SQ SCH ×2 (07:55→20:39)
[2021-09-24] MEDS: ACETAMINOPHEN 500 MG TAB PO SCH ×2 (07:55→20:38)
[2021-09-24] MEDS: ASPIRIN 81 MG ECTAB PO SCH (07:55)
[2021-09-24] MEDS: PANTOprazole 40 MG TAB PO SCH (07:55)
--- NOTE | 2021-09-24 19:12 | Hospitalist Progress Note ---
Date of Service September 24, 2021 delayed entry date of service noted above Assessment & Plan (1) Pneumonia due to COVID-19 virus: Plan: per admitting service notes with addendum: - COVID-19 positive, symptoms started about 1 week ago, unvaccinated - Procalcitonin pending - Lymphocytes 0.71, neutrophils 5.62 - CXR reviewed: Appears to have bibasilar opacities, early stage pneumonia. Pt was hypoxic with O2 sats in low 80s, now low 90s on 2-3 L. Does not wear O2 at baseline. - O2 sats 97% on 2 L now - WBC 6.96 - Remdesivir 200 mg IV x 1 then 100 mg daily therafter, decadron 6 mg IV daily. 09/24 Successfully weaned off oxygen supplementation comfortable, on room air continue Decadron + Remdesivir Renal and liver function tests stable continue proning, IS, FV Heparin for DVT prophylaxis Transition to SNF per case management (2) HTN (hypertension): Plan: - Continue verapamil (3) Fall: Plan: - mechanical, PT/OT consults - Noted on imaging that there is a partially calcified extra-axial 1.4 cm lesion of the left posterior fossa is suggestive of a probable meningioma (4) Osteoarthrosis: Plan: - Stable, chronic (5) GERD (gastroesophageal reflux disease): Plan: - Cont omeprazole (6) HLD (hyperlipidemia): Plan: - Cont atorvastatin 20 mg daily (7) Alzheimer's dementia: Plan: - Appears that this is fairly new diagnosis per PCP this past summer, son also report memory is worsening. - Pt lives at home by self and has 2 agencies coming in to visit her nearly daily - son is asking for placement at [facility]. Pt has suggested this to him previously. - CM to assist with dc planning DVT ppx: Heparin for DVT prophylaxis CODE: DNR/DNI Dispo: pending Admission and Anticipated Discharge Date Admission Date: September 18, 2021 Subjective ff up for acute hypoxic respiratory failure, COVID 19 pneumonia, etc resting in bed, comfortable states she feels fine no dyspnea, cough, chest pain, leg pain no other symptoms Review of Systems Constitutional: all noted and negative except for above Physical Exam Physical Exam: General- oriented x2, not in distress, speaks in sentences with no effort or accessory muscle use Eyes- anicteric Neck- no JVD Lungs- mid rales at the bases, no wheezing Heart- normal rate, regular rhythm; no murmurs Abdomen- normal bowel sounds, nondistended, soft, nontender Extremities- no pretibial edema, no calf tenderness Neuro- alert, oriented x 2; no gross focal neurologic deficits Skin- warm & dry Results & Data Results & Data ([facility]) Vital Signs (Past 12 Hours) Vital Signs Temp Pulse Resp BP Pulse Ox 09/24/21 15:38 36.3 C L 65 17 119/76 94 all noted and reviewed including below
[2021-09-25] MEDS: PANTOprazole 40 MG TAB PO SCH (08:32)
[2021-09-25] MEDS: HEPARIN SOD 5,000 UNIT/0.5 ML VIAL SQ SCH ×2 (08:32→20:36)
[2021-09-25] MEDS: VERAPAMIL HCL 120 MG TABCR PO SCH (08:32)
[2021-09-25] MEDS: ATORVASTATIN 20 MG TAB PO SCH (08:33)
[2021-09-25] MEDS: FERROUS SULFATE 325 MG TAB PO SCH (08:33)
[2021-09-25] MEDS: ACETAMINOPHEN 500 MG TAB PO SCH ×2 (08:33→20:35)
[2021-09-25] MEDS: ASPIRIN 81 MG ECTAB PO SCH (08:33)
[2021-09-25] MEDS: guaiFENesin 600 MG TABCR PO SCH ×2 (08:33→20:34)
[2021-09-25] MEDS: dexAMETHasone 6 MG in SYRINGE 0 ML IV SCH (09:06)
--- NOTE | 2021-09-25 23:47 | Hospitalist Progress Note ---
Date of Service September 25, 2021 delayed entry date of service noted above Assessment & Plan (1) Pneumonia due to COVID-19 virus: Plan: per admitting service notes with addendum: - COVID-19 positive, symptoms started about 1 week ago, unvaccinated - Procalcitonin pending - Lymphocytes 0.71, neutrophils 5.62 - CXR reviewed: Appears to have bibasilar opacities, early stage pneumonia. Pt was hypoxic with O2 sats in low 80s, now low 90s on 2-3 L. Does not wear O2 at baseline. - O2 sats 97% on 2 L now - WBC 6.96 - Remdesivir 200 mg IV x 1 then 100 mg daily therafter, decadron 6 mg IV daily. Successfully weaned off oxygen supplementation Now on room air continue Decadron day 7, completed Remdesivir 5/5 Renal and liver function tests stable continue proning, IS, FV Heparin for DVT prophylaxis Transition to SNF per case management (2) HTN (hypertension): Plan: - Continue verapamil (3) Fall: Plan: - mechanical, PT/OT consults - Noted on imaging that there is a partially calcified extra-axial 1.4 cm lesion of the left posterior fossa is suggestive of a probable meningioma (4) Osteoarthrosis: Plan: - Stable, chronic (5) GERD (gastroesophageal reflux disease): Plan: - Cont omeprazole (6) HLD (hyperlipidemia): Plan: - Cont atorvastatin 20 mg daily (7) Alzheimer's dementia: Plan: - Appears that this is fairly new diagnosis per PCP this past summer, son also report memory is worsening. - Pt lives at home by self and has 2 agencies coming in to visit her nearly daily - son is asking for placement at [facility]. Pt has suggested this to him previously. - CM to assist with dc planning DVT ppx: Heparin for DVT prophylaxis CODE: DNR/DNI Dispo: pending Admission and Anticipated Discharge Date Admission Date: September 18, 2021 Subjective ff up for acute hypoxic respiratory failure, etc seen resting in bed, watching tv on room air comfortable states she feels fine overall no chest pain, dyspnea, palpitations, dizziness no other symptoms Review of Systems Review of Systems: all noted and negative except for above Physical Exam Physical Exam: General- oriented x 2, not in distress, speaks in sentences with no effort or accessory muscle use Eyes- anicteric Neck- no JVD Lungs- very mild rales at the bases no wheezing Heart- normal rate, regular rhythm; no murmurs Abdomen- normal bowel sounds, nondistended, soft, nontender Extremities- no pretibial edema, no calf tenderness Neuro- alert, oriented x 2; no gross focal neurologic deficits Skin- warm & dry Results & Data Results & Data ([facility]) Vital Signs (Past 12 Hours) Vital Signs Temp Pulse Resp BP Pulse Ox 09/25/21 20:37 36.3 C L 58 L 18 134/77 95 09/25/21 16:00 36.5 C 66 14 123/69 94 all noted and reviewed including below
[2021-09-26] MEDS: ASPIRIN 81 MG ECTAB PO SCH (08:22)
[2021-09-26] MEDS: ACETAMINOPHEN 500 MG TAB PO SCH ×2 (08:22→20:16)
[2021-09-26] MEDS: ATORVASTATIN 20 MG TAB PO SCH (08:22)
[2021-09-26] MEDS: FERROUS SULFATE 325 MG TAB PO SCH (08:22)
[2021-09-26] MEDS: dexAMETHasone 6 MG in SYRINGE 0 ML IV SCH (08:23)
[2021-09-26] MEDS: VERAPAMIL HCL 120 MG TABCR PO SCH (08:23)
[2021-09-26] MEDS: PANTOprazole 40 MG TAB PO SCH (08:23)
[2021-09-26] MEDS: guaiFENesin 600 MG TABCR PO SCH ×2 (08:23→20:16)
[2021-09-26] MEDS: HEPARIN SOD 5,000 UNIT/0.5 ML VIAL SQ SCH ×2 (08:23→20:17)
--- NOTE | 2021-09-26 23:46 | Hospitalist Progress Note ---
Date of Service September 26, 2021 Assessment & Plan (1) Pneumonia due to COVID-19 virus: Plan: per admitting service notes with addendum: - COVID-19 positive, symptoms started about 1 week ago, unvaccinated - Procalcitonin normal - Lymphocytes 0.71, neutrophils 5.62 - CXR reviewed: Appears to have bibasilar opacities, early stage pneumonia. Pt was hypoxic with O2 sats in low 80s, now low 90s on 2-3 L. Does not wear O2 at baseline. - O2 sats 97% on 2 L now - WBC 6.96 - Completed course of Remdesivir - Continue Dexamethasone day #8. - Continue - Has been off oxygen supplement - Will discontinue dexamethasone since pt has been saturated well on RA - Clinically improved - Transition to SNF per case management (2) HTN (hypertension): Plan: - Continue verapamil (3) Fall: Plan: - mechanical, PT/OT consults - Noted on imaging that there is a partially calcified extra-axial 1.4 cm lesion of the left posterior fossa is suggestive of a probable meningioma (4) Osteoarthrosis: Plan: - Stable, chronic (5) GERD (gastroesophageal reflux disease): Plan: - Cont omeprazole (6) HLD (hyperlipidemia): Plan: - Cont atorvastatin 20 mg daily (7) Alzheimer's dementia: Plan: - Appears that this is fairly new diagnosis per PCP this past summer, son also report memory is worsening. - Pt lives at home by self and has 2 agencies coming in to visit her nearly daily - son is asking for placement at [facility] facility. Pt has suggested this to him previously. - CM to assist with dc planning DVT ppx on heparin CODE: DNR/DNI Dispo: Waiting for Placement Admission and Anticipated Discharge Date Admission Date: September 18, 2021 Subjective Pt was seen and examined for follow up SOB due to COVID 19 Lying in bed comfortable with no acute distress Pt said that she feels fine Denies any chest pain, dyspnea, palpitations, dizziness Review of Systems Review of Systems: All systems reviewed & are unremarkable except as noted in Subjective Physical Exam Physical Exam: General- No acute distress Head- atraumatic Eyes- PERRL, EOMI, ENT- oropharynx clear Neck- supple, no JVD Lungs- clear to auscultation Heart- regular rhythm; no murmur Abdomen- normal bowel sounds, soft, nontender Extremities- no calf tenderness Neuro- alert, oriented, PERRL, EOMI; no facial palsy; no dysarthria Skin- warm & dry Results & Data Results & Data ([facility]) Vital Signs (Past 12 Hours) Vital Signs Temp Pulse Resp BP Pulse Ox 09/26/21 20:14 36.7 C 71 18 126/74 96 09/26/21 17:45 36.5 C 62 18 142/72 H 96
[2021-09-27 06:16] LABS: Hematocrit (blood only) 43.3 % (37-47); Hemoglobin 13.8 g/dL (12.0-16.0); Mean Corpuscular Hemoglobin 30.3 pg (25-34); Mean Corpuscular Hgb Conc 31.9 g/dL (32-36); Platelet Count 350 K/uL (130-400); RDW Coefficient of Variation 14.5 % (11.5-14.5); RDW Standard Deviation 49.2 fL (36.4-46.3); Red Blood Count 4.56 M/uL (4.2-5.4); White Blood Count 11.24 K/uL (4.8-10.8)
[2021-09-27] MEDS: dexAMETHasone 6 MG in SYRINGE 0 ML IV SCH (07:03)
[2021-09-27] MEDS: VERAPAMIL HCL 120 MG TABCR PO SCH (07:04)
[2021-09-27] MEDS: FERROUS SULFATE 325 MG TAB PO SCH (07:04)
[2021-09-27] MEDS: ASPIRIN 81 MG ECTAB PO SCH (07:04)
[2021-09-27] MEDS: ACETAMINOPHEN 500 MG TAB PO SCH ×2 (07:04→20:13)
[2021-09-27] MEDS: guaiFENesin 600 MG TABCR PO SCH ×2 (07:05→20:14)
[2021-09-27] MEDS: PANTOprazole 40 MG TAB PO SCH (07:05)
[2021-09-27] MEDS: HEPARIN SOD 5,000 UNIT/0.5 ML VIAL SQ SCH ×2 (07:06→20:18)
[2021-09-27] MEDS: POLYETHYLENE (MIRALAX) 17 GM PACK PO PRN (08:32)
[2021-09-27] MEDS: ATORVASTATIN 20 MG TAB PO SCH (08:32)
--- NOTE | 2021-09-27 23:52 | Hospitalist Progress Note ---
Date of Service September 27, 2021 Assessment & Plan (1) Pneumonia due to COVID-19 virus: Plan: - COVID-19 positive, symptoms started about 1 week ago, unvaccinated - Procalcitonin normal - Lymphocytes 0.71, neutrophils 5.62 - CXR reviewed: Appears to have bibasilar opacities, early stage pneumonia. Pt was hypoxic with O2 sats in low 80s, now low 90s on 2-3 L. Does not wear O2 at baseline. - O2 sats 97% on 2 L now - WBC 6.96 - Completed course of Remdesivir - Continue Dexamethasone day #8. - Continue - Has been off oxygen supplement - Will discontinue dexamethasone since pt has been saturated well on RA - Clinically improved - Transition to SNF per case management (2) HTN (hypertension): Plan: - Continue verapamil (3) Fall: Plan: - mechanical, PT/OT consults - Noted on imaging that there is a partially calcified extra-axial 1.4 cm lesion of the left posterior fossa is suggestive of a probable meningioma (4) Osteoarthrosis: Plan: - Stable, chronic (5) GERD (gastroesophageal reflux disease): Plan: - Cont omeprazole (6) HLD (hyperlipidemia): Plan: - Cont atorvastatin 20 mg daily (7) Alzheimer's dementia: Plan: - Appears that this is fairly new diagnosis per PCP this past summer, son also report memory is worsening. - Pt lives at home by self and has 2 agencies coming in to visit her nearly daily - son is asking for placement at [facility]. Pt has suggested this to him previously. - CM to assist with dc planning DVT ppx on heparin CODE: DNR/DNI Dispo: Waiting for Placement Admission and Anticipated Discharge Date Admission Date: September 18, 2021 Subjective Pt was seen and examined for follow up SOB due to COVID 19 Lying in bed comfortable with no acute distress Pt said that she feels fine Denies any chest pain, dyspnea, palpitations, dizziness Review of Systems Review of Systems: All systems reviewed & are unremarkable except as noted in Subjective Physical Exam Physical Exam: General- No acute distress Head- atraumatic Eyes- PERRL, EOMI, ENT- oropharynx clear Neck- supple, no JVD Lungs- clear to auscultation Heart- regular rhythm; no murmur Abdomen- normal bowel sounds, soft, nontender Extremities- no calf tenderness Neuro- alert, oriented, PERRL, EOMI; no facial palsy; no dysarthria Skin- warm & dry Results & Data Results & Data ([facility]) Vital Signs (Past 12 Hours) Vital Signs Temp Pulse Resp BP Pulse Ox 09/27/21 15:28 36.3 C L 69 16 118/67 93
[2021-09-28] MEDS: ASPIRIN 81 MG ECTAB PO SCH (08:44)
[2021-09-28] MEDS: VERAPAMIL HCL 120 MG TABCR PO SCH (08:44)
[2021-09-28] MEDS: ACETAMINOPHEN 500 MG TAB PO SCH ×2 (08:44→20:34)
[2021-09-28] MEDS: FERROUS SULFATE 325 MG TAB PO SCH (08:45)
[2021-09-28] MEDS: guaiFENesin 600 MG TABCR PO SCH ×2 (08:45→20:34)
[2021-09-28] MEDS: POLYETHYLENE (MIRALAX) 17 GM PACK PO PRN (08:45)
[2021-09-28] MEDS: PANTOprazole 40 MG TAB PO SCH (08:45)
[2021-09-28] MEDS: HEPARIN SOD 5,000 UNIT/0.5 ML VIAL SQ SCH ×2 (08:45→20:34)
[2021-09-28] MEDS: ATORVASTATIN 20 MG TAB PO SCH (08:45)
[2021-09-28] MEDS: dexAMETHasone 6 MG in SYRINGE 0 ML IV SCH (09:19)
[2021-09-28] MEDS: ACETAMINOPHEN 325 MG TAB PO PRN (16:50)
--- NOTE | 2021-09-29 02:13 | Hospitalist Progress Note ---
Date of Service September 28, 2021 Assessment & Plan (1) Pneumonia due to COVID-19 virus: Plan: - COVID-19 positive, symptoms started about 1 week ago, unvaccinated - Procalcitonin normal - Lymphocytes 0.71, neutrophils 5.62 - CXR reviewed: Appears to have bibasilar opacities, early stage pneumonia. Pt was hypoxic with O2 sats in low 80s, now low 90s on 2-3 L. Does not wear O2 at baseline. - O2 sats 97% on 2 L now - WBC 6.96 - Completed course of Remdesivir - Continue Dexamethasone day #8. - Continue - Has been off oxygen supplement - Will discontinue dexamethasone since pt has been saturated well on RA - Clinically improved - Transition to SNF per case management (2) HTN (hypertension): Plan: - Continue verapamil (3) Fall: Plan: - mechanical, PT/OT consults - Noted on imaging that there is a partially calcified extra-axial 1.4 cm lesion of the left posterior fossa is suggestive of a probable meningioma (4) Osteoarthrosis: Plan: - Stable, chronic (5) GERD (gastroesophageal reflux disease): Plan: - Cont omeprazole (6) HLD (hyperlipidemia): Plan: - Cont atorvastatin 20 mg daily (7) Alzheimer's dementia: Plan: - Appears that this is fairly new diagnosis per PCP this past summer, son also report memory is worsening. - Pt lives at home by self and has 2 agencies coming in to visit her nearly daily - son is asking for placement at [facility]. Pt has suggested this to him previously. - CM to assist with dc planning DVT ppx on heparin CODE: DNR/DNI Dispo: Waiting for Placement Admission and Anticipated Discharge Date Admission Date: September 18, 2021 Subjective Pt was seen and examined for follow up SOB due to COVID 19 Lying in bed comfortable with no acute distress Waiting for placement to transfer Denies any chest pain, dyspnea, palpitations, dizziness Review of Systems Review of Systems: All systems reviewed & are unremarkable except as noted in Subjective Physical Exam Physical Exam: General- No acute distress, + cachetic Head- atraumatic Eyes- PERRL, EOMI, ENT- oropharynx clear Neck- supple, no JVD Lungs-no wheezing no rales Heart- regular rhythm; no murmur Abdomen- normal bowel sounds, soft, nontender Extremities- no calf tenderness Neuro- alert, oriented, PERRL, EOMI; no facial palsy; no dysarthria Skin- warm & dry Results & Data Results & Data ([facility]) Vital Signs (Past 12 Hours) Vital Signs Temp Pulse Resp BP BP Pulse Ox 09/28/21 21:01 36.4 C L 64 16 126/78 93 09/28/21 16:09 36.4 C L 63 16 108/65 93
[2021-09-29] MEDS: FERROUS SULFATE 325 MG TAB PO SCH (08:41)
[2021-09-29] MEDS: guaiFENesin 600 MG TABCR PO SCH ×2 (08:41→20:43)
[2021-09-29] MEDS: HEPARIN SOD 5,000 UNIT/0.5 ML VIAL SQ SCH ×2 (08:41→20:43)
[2021-09-29] MEDS: VERAPAMIL HCL 120 MG TABCR PO SCH (08:41)
[2021-09-29] MEDS: ASPIRIN 81 MG ECTAB PO SCH (08:41)
[2021-09-29] MEDS: PANTOprazole 40 MG TAB PO SCH (08:41)
[2021-09-29] MEDS: ACETAMINOPHEN 500 MG TAB PO SCH ×2 (08:41→20:43)
[2021-09-29] MEDS: ATORVASTATIN 20 MG TAB PO SCH (08:41)
--- NOTE | 2021-09-29 22:20 | Hospitalist Progress Note ---
Date of Service September 29, 2021 Assessment & Plan (1) Pneumonia due to COVID-19 virus: Plan: - COVID-19 positive, symptoms started about 1 week ago, unvaccinated - Procalcitonin normal - Lymphocytes 0.71, neutrophils 5.62 - CXR reviewed: Appears to have bibasilar opacities, early stage pneumonia. Pt was hypoxic with O2 sats in low 80s, now low 90s on 2-3 L. Does not wear O2 at baseline. - O2 sats 97% on 2 L now - WBC 6.96 - Completed course of Remdesivir - Completed the course of Dexamethasone - Has been off oxygen supplement - Saturated well on RA - Transition to SNF per case management (2) HTN (hypertension): Plan: - Continue verapamil (3) Fall: Plan: - mechanical, PT/OT consults - Noted on imaging that there is a partially calcified extra-axial 1.4 cm lesion of the left posterior fossa is suggestive of a probable meningioma (4) Osteoarthrosis: Plan: - Stable, chronic (5) GERD (gastroesophageal reflux disease): Plan: - Cont omeprazole (6) HLD (hyperlipidemia): Plan: - Cont atorvastatin 20 mg daily (7) Alzheimer's dementia: Plan: - Appears that this is fairly new diagnosis per PCP this past summer, son also report memory is worsening. - Pt lives at home by self and has 2 agencies coming in to visit her nearly daily - son is asking for placement at [facility] facility. Pt has suggested this to him previously. - CM to assist with dc planning DVT ppx on heparin CODE: DNR/DNI Dispo: Waiting for Placement Admission and Anticipated Discharge Date Admission Date: September 18, 2021 Subjective Pt was seen and examined for follow up SOB due to COVID 19 Lying in bed comfortable with no acute distress Waiting for placement to transfer Denies any chest pain, dyspnea, palpitations, dizziness Review of Systems Review of Systems: All systems reviewed & are unremarkable except as noted in Subjective Physical Exam Physical Exam: General- No acute distress, + cachetic Head- atraumatic Eyes- PERRL, EOMI, ENT- oropharynx clear Neck- supple, no JVD Lungs-no wheezing no rales Heart- regular rhythm; no murmur Abdomen- normal bowel sounds, soft, nontender Extremities- no calf tenderness Neuro- alert, oriented, PERRL, EOMI; no facial palsy; no dysarthria Skin- warm & dry Results & Data Results & Data ([facility]) Vital Signs (Past 12 Hours) Vital Signs Temp Pulse Resp BP BP Pulse Ox 09/29/21 20:56 36.4 C L 61 18 120/72 93 09/29/21 14:44 36.4 C L 67 16 101/66 92
[2021-09-30] MEDS: PANTOprazole 40 MG TAB PO SCH (08:50)
[2021-09-30] MEDS: HEPARIN SOD 5,000 UNIT/0.5 ML VIAL SQ SCH ×2 (08:50→20:22)
[2021-09-30] MEDS: FERROUS SULFATE 325 MG TAB PO SCH (08:50)
[2021-09-30] MEDS: guaiFENesin 600 MG TABCR PO SCH ×2 (08:50→20:22)
[2021-09-30] MEDS: ASPIRIN 81 MG ECTAB PO SCH (08:50)
[2021-09-30] MEDS: VERAPAMIL HCL 120 MG TABCR PO SCH (08:50)
[2021-09-30] MEDS: ATORVASTATIN 20 MG TAB PO SCH (08:50)
[2021-09-30] MEDS: ACETAMINOPHEN 500 MG TAB PO SCH ×2 (09:20→20:22)
[2021-09-30 10:08] LABS: Hematocrit (blood only) 43.5 % (37-47); Hemoglobin 13.8 g/dL (12.0-16.0); Mean Corpuscular Hemoglobin 30.5 pg (25-34); Mean Corpuscular Hgb Conc 31.7 g/dL (32-36); Mean Platelet Volume 10.8 fL (7.4-10.4); Platelet Count 269 K/uL (130-400); RDW Coefficient of Variation 15.1 % (11.5-14.5); Red Blood Count 4.53 M/uL (4.2-5.4); White Blood Count 11.48 K/uL (4.8-10.8)
--- NOTE | 2021-09-30 19:02 | Hospitalist Progress Note ---
Date of Service September 30, 2021 Assessment & Plan (1) Pneumonia due to COVID-19 virus: Plan: - COVID-19 positive, symptoms started about 1 week ago, unvaccinated - Procalcitonin normal - Lymphocytes 0.71, neutrophils 5.62 - CXR showed bibasilar opacities, early stage pneumonia. Pt was hypoxic with O2 sats in low 80s, now low 90s on 2-3 L. Does not wear O2 at baseline. - O2 sats 97% on 2 L now - WBC 6.96 - Completed course of Remdesivir and dexamethasone - Has been off oxygen supplement - Saturated well on RA - Transition to SNF per case management (2) HTN (hypertension): Plan: - Continue verapamil (3) Fall: Plan: - mechanical, PT/OT consults - Noted on imaging that there is a partially calcified extra-axial 1.4 cm lesion of the left posterior fossa is suggestive of a probable meningioma (4) Osteoarthrosis: Plan: - Stable, chronic (5) GERD (gastroesophageal reflux disease): Plan: - Cont omeprazole (6) HLD (hyperlipidemia): Plan: - Cont atorvastatin 20 mg daily (7) Alzheimer's dementia: Plan: - Appears that this is fairly new diagnosis per PCP this past summer, son also report memory is worsening. - Pt lives at home by self and has 2 agencies coming in to visit her nearly daily - son is asking for placement at [facility]. Pt has suggested this to him previously. - CM to assist with dc planning DVT ppx on heparin CODE: DNR/DNI Dispo: Waiting for Placement Admission and Anticipated Discharge Date Admission Date: September 18, 2021 Subjective Pt was seen and examined for follow up SOB due to COVID 19 Lying in bed comfortable with no acute distress Saturating well on room air Denies any chest pain, dyspnea, palpitations, dizziness Review of Systems Review of Systems: All systems reviewed & are unremarkable except as noted in Subjective Physical Exam Physical Exam: General- No acute distress, + cachetic Head- atraumatic Eyes- PERRL, EOMI, ENT- oropharynx clear Neck- supple, no JVD Lungs-no wheezing no rales Heart- regular rhythm; no murmur Abdomen- normal bowel sounds, soft, nontender Extremities- no calf tenderness Neuro- alert, oriented, PERRL, EOMI; no facial palsy; no dysarthria Skin- warm & dry Results & Data Results & Data ([facility]) Vital Signs (Past 12 Hours) Vital Signs Temp Pulse Resp BP Pulse Ox 09/30/21 14:45 36.4 C L 67 16 110/62 92 09/30/21 07:16 36.5 C 65 16 115/68 91
[2021-10-01] MEDS: HEPARIN SOD 5,000 UNIT/0.5 ML VIAL SQ SCH ×2 (08:39→19:52)
[2021-10-01] MEDS: ASPIRIN 81 MG ECTAB PO SCH (08:39)
[2021-10-01] MEDS: PANTOprazole 40 MG TAB PO SCH (08:39)
[2021-10-01] MEDS: FERROUS SULFATE 325 MG TAB PO SCH (08:39)
[2021-10-01] MEDS: guaiFENesin 600 MG TABCR PO SCH ×2 (08:39→19:52)
[2021-10-01] MEDS: ACETAMINOPHEN 500 MG TAB PO SCH ×2 (08:39→19:52)
[2021-10-01] MEDS: ATORVASTATIN 20 MG TAB PO SCH (08:39)
[2021-10-01] MEDS: VERAPAMIL HCL 120 MG TABCR PO SCH (08:40)
[2021-10-01] MEDS: HYDROCORTISONE HC 2.5% CRM 30GM TUBE EXT PRN (08:49)
--- NOTE | 2021-10-01 16:20 | Hospitalist Progress Note ---
Date of Service October 01, 2021 Assessment & Plan (1) Pneumonia due to COVID-19 virus: Plan: per admitting service notes with addendum: - COVID-19 positive, symptoms started about 1 week before admission, unvaccinated - Procalcitonin was 0.17 on admission - Lymphocytes 0.71, neutrophils 5.62 - CXR reviewed: Appears to have bibasilar opacities, early stage pneumonia. Pt was hypoxic with O2 sats in low 80s, now low 90s on 2-3 L. Does not wear O2 at baseline. - O2 sats 97% on 2 L now on admission - WBC 6.96 - Remdesivir 200 mg IV x 1 then 100 mg daily therafter, decadron 6 mg IV daily. -Finish the course of remdesivir and dexamethasone -Clinically much better and is saturating on room air at rest -Medically stable to be discharged (2) HTN (hypertension): Plan: -Blood pressure remains stable - Continue verapamil (3) Fall: Plan: - mechanical, PT/OT consults - Noted on imaging that there is a partially calcified extra-axial 1.4 cm lesion of the left posterior fossa is suggestive of a probable meningioma (4) Osteoarthrosis: Plan: - Stable, chronic (5) GERD (gastroesophageal reflux disease): Plan: - Cont omeprazole (6) HLD (hyperlipidemia): Plan: - Cont atorvastatin 20 mg daily (7) Alzheimer's dementia: Plan: - Appears that this is fairly new diagnosis per PCP this past summer, son also report memory is worsening. - Pt lives at home by self and has 2 agencies coming in to visit her nearly daily - son is asking for placement at [facility]. Pt has suggested this to him previously. - CM to assist with dc planning DVT ppx: Heparin for DVT prophylaxis CODE: DNR/DNI Dispo: Awaiting placement Admission and Anticipated Discharge Date Admission Date: September 18, 2021 Subjective 10/01/2021 The patient was seen and examined in medical floor She remains very lethargic but denies any symptoms of pain and no shortness of breath at rest She has been saturating normally on room air Review of Systems Review of Systems: All systems reviewed and are unremarkable except as noted below Respiratory: Mild S OB at rest but no desaturation Physical Exam Physical Exam: Lying in bed comfortably Constitutional: + ill appearing and + thin Eyes: PERRL, conjunctivae normal, anicteric sclerae ENMT: external ear and nose normal, oropharynx normal Neck: trachea midline, no thyromegaly Respiratory: no respiratory distress Auscultation: + diminished lung sounds and + crackles (Minimal crackles at the bases) Cardiovascular: Rate/Rhythm: regular rate and regular rhythm; not tachycardic Heart Sounds: normal S1 and normal S2; no murmur Extremities: no edema Gastrointestinal (Abdomen): Inspection/Auscultation: normal bowel sounds; abdomen not distended Percussion/Palpation: abdomen soft; abdomen nontender Musculoskeletal: No acute arthritis in any joint Neurologic: Alert, awake and oriented x3. She generally weak and lethargic Results & Data Results & Data ([facility]) Vital Signs (Past 12 Hours) Vital Signs Temp Pulse Resp BP BP Pulse Ox 10/01/21 15:32 36.5 C 60 16 114/66 94 10/01/21 08:10 36.5 C 63 16 119/74 93 Medications Administered Current Inpatient Medications Acetaminophen (Acetaminophen 325 Mg Tab) 650 mg PO Q4H PRN PRN Reason: Moderate Pain Stop: 10/18/21 11:29 Last Admin: 09/28/21 16:50 Dose: 650 mg Documented by: Acetaminophen (Acetaminophen 500 Mg Tab) 500 mg PO BID [facility] Stop: 10/23/21 20:59 Last Admin: 10/01/21 08:39 Dose: 500 mg Documented by: Albuterol (Albuterol Hfa 8 Gm Inhaler) 2 puffs INH QIDR PRN PRN Reason: Shortness Of Breath Or Wheezing Stop: 10/18/21 12:59 Aspirin (Aspirin 81 Mg Ectab) 81 mg PO DAILY [facility] Stop: 10/19/21 08:59 Last Admin: 10/01/21 08:39 Dose: 81 mg Documented by: Atorvastatin Calcium (Atorvastatin 20 Mg Tab) 20 mg PO DAILY [facility] Stop: 10/19/21 08:59 Last Admin: 10/01/21 08:39 Dose: 20 mg Documented by: Ferrous Sulfate (Ferrous Sulfate 325 Mg Tab) 325 mg PO DAILY [facility] Stop: 10/19/21 08:59 Last Admin: 10/01/21 08:39 Dose: 325 mg Documented by: Guaifenesin (Guaifenesin 600 Mg Tabcr) 1,200 mg PO Q12 [facility] Stop: 10/18/21 20:59 Last Admin: 10/01/21 08:39 Dose: 1,200 mg Documented by: Heparin Sodium (Porcine) (Heparin Sod 5,000 Unit/0.5 Ml Vial) 5,000 units SQ Q12 [facility] Stop: 10/18/21 14:29 Last Admin: 10/01/21 08:39 Dose: 5,000 units Documented by: Hydrocortisone (Hydrocortisone Hc 2.5% Crm 30gm Tube) 1 appln EXT BID PRN PRN Reason: Hemorrhoids Stop: 10/30/21 17:33 Last Admin: 10/01/21 08:49 Dose: 1 appln Documented by: Ondansetron HCl (Ondansetron Inj 2 Mg/Ml 2 Ml Vial) 4 mg IV Q4H PRN PRN Reason: Nausea And Vomiting Stop: 10/18/21 11:29 Pantoprazole Sodium (Pantoprazole 40 Mg Tab) 40 mg PO DAILY [facility]; Protocol Stop: 10/19/21 08:59 Last Admin: 10/01/21 08:39 Dose: 40 mg Documented by: Polyethylene Glycol (Polyethylene (Miralax) 17 Gm Pack) 17 gm PO DAILY PRN PRN Reason: Constipation Stop: 10/27/21 06:56 Last Admin: 09/28/21 08:45 Dose: 17 gm Documented by: Verapamil HCl (Verapamil Hcl 120 Mg Tabcr) 120 mg PO QAM [facility] Stop: 10/19/21 08:59 Last Admin: 10/01/21 08:40 Dose: 120 mg Documented by:
[2021-10-02 06:40] LABS: BUN Creatinine Ratio 36.4 (10-20); Calcium 8.4 mg/dl (8.5-10.1); Creatinine Clr Calc Pharmacy 37.3 ml/min; Est GFR (African American) 89.7 ml/min; Est GFR (Non-African American) 77.4 ml/min; Potassium 4.2 mmol/L (3.5-5.1)
[2021-10-02] MEDS: FERROUS SULFATE 325 MG TAB PO SCH (07:54)
[2021-10-02] MEDS: VERAPAMIL HCL 120 MG TABCR PO SCH (07:55)
[2021-10-02] MEDS: ASPIRIN 81 MG ECTAB PO SCH (07:55)
[2021-10-02] MEDS: PANTOprazole 40 MG TAB PO SCH (10:18)
[2021-10-02] MEDS: guaiFENesin 600 MG TABCR PO SCH ×2 (10:18→21:31)
[2021-10-02] MEDS: ATORVASTATIN 20 MG TAB PO SCH (10:19)
[2021-10-02] MEDS: HEPARIN SOD 5,000 UNIT/0.5 ML VIAL SQ SCH ×2 (12:29→20:56)
[2021-10-02] MEDS: ACETAMINOPHEN 500 MG TAB PO SCH ×2 (12:29→20:55)
--- NOTE | 2021-10-02 15:26 | Hospitalist Progress Note ---
Date of Service October 02, 2021 Assessment & Plan (1) Pneumonia due to COVID-19 virus: Plan: This is a 89-year-old female with PMHx of cerebral aneurysm, HTN, GERD, diffuse osteoarthritis, osteoporosis, HLD and Alzheimer dementia who presented after having sustained an acute fall where she hit her head. -Tested positive for COVID-19 on 09/18, symptoms started about 1 week before admission, unvaccinated - Procalcitonin was 0.17 on admission. CXR showed an early pneumonia. - Pt was hypoxic with O2 sats in low 80s and was requiring 2 to 3 L. Currently saturating well on room air. - Remdesivir 200 mg IV x 1 then 100 mg daily thereafter, Decadron 6 mg IV daily -finished courses of remdesivir and Decadron -Medically stable to be discharged -Remove patient from isolation precautions today (2) HTN (hypertension): Plan: -BP controlled -Continue home verapamil -Lasix and HCTZ on hold since admission -BP remains controlled, no edema on exam. Patient may not need going forward. (3) Fall: Plan: - mechanical, PT/OT consults - Noted on imaging that there is a partially calcified extra-axial 1.4 cm lesion of the left posterior fossa is suggestive of a probable meningioma (4) Osteoarthrosis: Plan: - Stable, chronic (5) GERD (gastroesophageal reflux disease): Plan: - Cont omeprazole (6) HLD (hyperlipidemia): Plan: - Cont atorvastatin 20 mg daily (7) Alzheimer's dementia: Plan: - Appears that this is fairly new diagnosis per PCP this past summer, son also report memory is worsening. - Pt lives at home by self and has 2 agencies coming in to visit her nearly daily - [facility] is asking for [facility]. Pt has suggested this to him previously. DVT ppx: SQ Heparin Dispo: Awaiting placement. [facility] until [facility] (20 days from positive COVID-19 test). Admission and Anticipated Discharge Date Admission Date: September 18, 2021 Supervising Physician Co-Signing Physician Notes Attending addendum The patient was seen and examined in medical floor She has been feeling much better and remains stabl Denies any symptoms and awaiting placement On examination Lying in bed comfortably Hemodynamically stable Chest-decreased breath sounds bilaterally with occasional crackles at the bases Heart-S1-S2 with a 2/6 ESM over precordium Abdomen-benign Extremities-negative Her labs and imaging studies reviewed Agree with assessment and plan as outlined above by Emilia Evans Subjective Patient seen and examined. Follow-up for COVID-19 pneumonia. Patient is resting in bed, offers no complaints. Denies chest pain, shortness of breath, cough. Reports a good appetite. No abdominal pain, nausea, vomiting. Review of Systems Review of Systems: ROS per HPI, all other systems reviewed and negative Physical Exam Constitutional: WD/WN, vitals as above Respiratory: normal respiratory effort; no respiratory distress Auscultation: + diminished lung sounds (Bilateral bases) Cardiovascular: Rate/Rhythm: regular rate and regular rhythm Vessels: normal peripheral pulses Extremities: no edema Gastrointestinal (Abdomen): Percussion/Palpation: abdomen soft; abdomen nontender Skin: no rashes, warm and dry Neurologic: no focal motor deficits Psychiatric: A+Ox3, euthymic affect Results & Data Results & Data ([facility]) Vital Signs (Past 12 Hours) Vital Signs Temp Pulse Resp BP Pulse Ox 10/02/21 14:57 36.6 C 73 18 101/65 94 Laboratory Results [facility] 10/02/21 05:28 Sodium 140 Potassium 4.2 Chloride 114 H Carbon Dioxide 20 L BUN 25 H Creatinine 0.70 Glucose 75 Calcium 8.4 L
[2021-10-02] MEDS: ONDANSETRON INJ 2 MG/ML 2 ML VIAL IV PRN (20:11)
[2021-10-03 06:20] LABS: Hematocrit (blood only) 47.3 % (37-47); Hemoglobin 14.9 g/dL (12.0-16.0); Mean Corpuscular Hemoglobin 30.8 pg (25-34); Mean Corpuscular Hgb Conc 31.5 g/dL (32-36); Mean Corpuscular Volume 97.9 fL (80-100); Mean Platelet Volume 11.7 fL (7.4-10.4); Platelet Count 240 K/uL (130-400); RDW Coefficient of Variation 15.5 % (11.5-14.5); RDW Standard Deviation 54.2 fL (36.4-46.3); Red Blood Count 4.83 M/uL (4.2-5.4); White Blood Count 8.12 K/uL (4.8-10.8)
[2021-10-03] MEDS: FERROUS SULFATE 325 MG TAB PO SCH (09:28)
[2021-10-03] MEDS: guaiFENesin 600 MG TABCR PO SCH ×2 (09:29→20:46)
[2021-10-03] MEDS: PANTOprazole 40 MG TAB PO SCH (09:29)
[2021-10-03] MEDS: VERAPAMIL HCL 120 MG TABCR PO SCH (09:29)
[2021-10-03] MEDS: ASPIRIN 81 MG ECTAB PO SCH (09:29)
[2021-10-03] MEDS: ATORVASTATIN 20 MG TAB PO SCH (09:30)
[2021-10-03] MEDS: HEPARIN SOD 5,000 UNIT/0.5 ML VIAL SQ SCH ×3 (09:30→20:43)
[2021-10-03] MEDS: ACETAMINOPHEN 500 MG TAB PO SCH ×2 (09:44→20:47)
[2021-10-03] MEDS ORDERED: COVID-19 VAC,AD26(JANSSEN)/PF 0.5 ML SYR IM ONE (11:42)
--- NOTE | 2021-10-03 15:28 | Hospitalist Progress Note ---
Date of Service October 03, 2021 Assessment & Plan (1) Pneumonia due to COVID-19 virus: Plan: This is a 89-year-old female with PMHx of cerebral aneurysm, HTN, GERD, diffuse osteoarthritis, osteoporosis, HLD and Alzheimer dementia who presented after having sustained an acute fall where she hit her head. -Tested positive for COVID-19 on 09/18, symptoms started about 1 week before admission, unvaccinated - Procalcitonin was 0.17 on admission. CXR showed an early pneumonia. - Pt was hypoxic with O2 sats in low 80s and was requiring 2 to 3 L. Currently saturating well on room air. - Remdesivir 200 mg IV x 1 then 100 mg daily thereafter, Decadron 6 mg IV daily -finished courses of remdesivir and Decadron - Medically stable to be discharged - Isolation precautions DC'd on 10/02 - Patient agreeable to COVID-19 vaccine - received [place] vaccine on 10/03 (2) HTN (hypertension): Plan: -BP controlled -Continue home verapamil -Lasix and HCTZ on hold since admission -BP remains controlled, no edema on exam. Patient may not need going forward. (3) Fall: Plan: - mechanical, PT/OT consults - Noted on imaging that there is a partially calcified extra-axial 1.4 cm lesion of the left posterior fossa is suggestive of a probable meningioma (4) Osteoarthrosis: Plan: - Stable, chronic (5) GERD (gastroesophageal reflux disease): Plan: - Cont omeprazole (6) HLD (hyperlipidemia): Plan: - Cont atorvastatin 20 mg daily (7) Alzheimer's dementia: Plan: - Appears that this is fairly new diagnosis per PCP this past summer, son also report memory is worsening. - Pt lives at home by self and has 2 agencies coming in to visit her nearly daily - son is asking for placement at [facility]. Pt has suggested this to him previously. DVT ppx: SQ Heparin Dispo: Awaiting placement. [facility] not [facility] to [facility] until October 08 (20 days from positive COVID-19 test). Referral placed to [facility]. Patient received COVID-19 vaccine today. Son Chato updated via telephone. Admission and Anticipated Discharge Date Admission Date: September 18, 2021 Supervising Physician Co-Signing Physician Notes Attending addendum: The patient was seen and examined in medical floor She remains generally weak and lethargic but denies any other symptoms She is agreeable to take the vaccine for COVID-19 On examination Sitting on a chair without any acute distress Hemodynamically stable with blood pressure on the lower side at 97/59 Chest-decreased breath sounds bilaterally with minimal crackles at the bases Heart-S1-S2, 2/6 ESM over precordium Abdomen-benign Extremities-no edema Her labs and imaging studies reviewed Recovering from COVID-19 pneumonia We will get the vaccine from the hospital Medically stable Agree with assessment and plan as outlined above by Emilia Evans Subjective Patient seen and examined. Follow-up for COVID-19 pneumonia. Patient is resting in bed, offers no complaints. Denies chest pain, shortness of breath, cough. Reports a good appetite. No abdominal pain, nausea, vomiting. Eager to be discharged. Review of Systems Review of Systems: ROS per HPI, all other systems reviewed and negative Physical Exam Constitutional: WD/WN, vitals as above Respiratory: normal respiratory effort; no respiratory distress Auscultation: + diminished lung sounds (Bilateral bases) Cardiovascular: Rate/Rhythm: regular rate and regular rhythm Vessels: normal peripheral pulses Extremities: no edema Gastrointestinal (Abdomen): Percussion/Palpation: abdomen soft; abdomen nontender Skin: no rashes, warm and dry Neurologic: no focal motor deficits Psychiatric: A+Ox3, euthymic affect Results & Data Results & Data ([facility]) Vital Signs (Past 12 Hours) Vital Signs Temp Pulse Resp BP Pulse Ox 10/03/21 07:27 36.4 C L 48 L 12 120/67 94 Laboratory Results Short CBC 10/03/21 Range/Units 05:52 WBC 8.12 (4.8-10.8) K/uL Hgb 14.9 (12.0-16.0) g/dL Hct 47.3 H (37-47) % Plt Count 240 (130-400) K/uL
[2021-10-04] MEDS: PANTOprazole 40 MG TAB PO SCH (08:36)
[2021-10-04] MEDS: ASPIRIN 81 MG ECTAB PO SCH (08:36)
[2021-10-04] MEDS: ACETAMINOPHEN 500 MG TAB PO SCH ×2 (08:36→21:26)
[2021-10-04] MEDS: ATORVASTATIN 20 MG TAB PO SCH (08:36)
[2021-10-04] MEDS: HEPARIN SOD 5,000 UNIT/0.5 ML VIAL SQ SCH ×2 (08:36→21:28)
[2021-10-04] MEDS: FERROUS SULFATE 325 MG TAB PO SCH (08:36)
[2021-10-04] MEDS: guaiFENesin 600 MG TABCR PO SCH ×2 (08:36→21:16)
[2021-10-04] MEDS: VERAPAMIL HCL 120 MG TABCR PO SCH (09:36)
--- NOTE | 2021-10-04 17:18 | Hospitalist Progress Note ---
Date of Service October 04, 2021 Assessment & Plan (1) Pneumonia due to COVID-19 virus: Plan: This is a 89-year-old female with PMHx of cerebral aneurysm, HTN, GERD, diffuse osteoarthritis, osteoporosis, HLD and Alzheimer dementia who presented after having sustained an acute fall where she hit her head. -Tested positive for COVID-19 on 09/18, symptoms started about 1 week before admission, unvaccinated - Procalcitonin was 0.17 on admission. CXR showed an early pneumonia. - Pt was hypoxic with O2 sats in low 80s and was requiring 2 to 3 L. Currently saturating well on room air. - Remdesivir 200 mg IV x 1 then 100 mg daily thereafter, Decadron 6 mg IV daily -finished courses of remdesivir and Decadron - Medically stable to be discharged - Isolation precautions DC'd on 10/02 - Patient agreeable to COVID-19 vaccine - received vaccine on 10/04 (2) HTN (hypertension): Plan: -BP controlled -Continue home verapamil -Lasix and HCTZ on hold since admission -BP remains controlled, no edema on exam. Patient may not need going forward (3) Fall: Plan: - mechanical, PT/OT consults - Noted on imaging that there is a partially calcified extra-axial 1.4 cm lesion of the left posterior fossa is suggestive of a probable meningioma (4) Osteoarthrosis: Plan: - Stable, chronic (5) GERD (gastroesophageal reflux disease): Plan: - Cont omeprazole (6) HLD (hyperlipidemia): Plan: - Cont atorvastatin 20 mg daily (7) Alzheimer's dementia: Plan: - Appears that this is fairly new diagnosis per PCP this past summer, son also report memory is worsening. - Pt lives at home by self and has 2 agencies coming in to visit her nearly daily - son is asking for placement at [facility]. Pt has suggested this to him previously. DVT ppx: SQ Heparin Dispo: Awaiting placement. [facility] until [facility] (20 days from positive COVID-19 test). Referral placed to [facility]. Patient received COVID-19 vaccine today. Admission and Anticipated Discharge Date Admission Date: September 18, 2021 Supervising Physician Co-Signing Physician Notes Attending addendum The patient was seen and examined in medical floor She has been stable and denies any significant symptoms On examination No apparent distress at rest Hemodynamically stable with blood pressure on the lower side Chest-decreased breath sounds both sides with minimal crackles at the bases Heart S1-S2 Extremities-negative for edema Her labs, medicine and imaging studies reviewed Remains medically stable She got the Covid vaccine Awaiting placement Agree with assessment and plan as outlined above by JORGE LUIS Garcia DR Subjective Patient seen and examined in 323-1 in follow-up for COVID-19 pneumonia. Patient is resting in bed, offers no complaints. Denies fever, chills, headache, chest pain, shortness of breath, cough. Reports a good appetite. No abdominal pain, nausea, vomiting. Regular bowel movements, per patient. Initially refused covid vaccine but agreeable today, 10/04/21. Review of Systems Review of Systems: At least ten systems reviewed and negative except as noted in the HPI. Physical Exam Physical Exam: Gen: WD/WN, NAD, lying in bed, A&Ox3 HEENT: Normocephalic, atraumatic, conjunctivae moist, sclerae anicteric, mucous membranes moist Lung: diminished breath sounds bilaterally, no wheezes/rales/rhonchi Heart: Regular rate, regular rhythm, no murmurs, rubs, or gallops Abdomen: Soft, NT, ND +BS x 4 Extremities: no edema Skin: Warm, no rash Results & Data Results & Data ([facility]) Vital Signs (Past 12 Hours) Vital Signs Temp Pulse Resp BP Pulse Ox 10/04/21 17:00 36.2 C L 69 16 90/50 L 98 10/04/21 07:26 36.3 C L 53 L 16 99/62 L 95
[2021-10-04] MEDS ORDERED: SODIUM CHLORIDE 0.9% 500 ML IV SCH (17:30)
[2021-10-05] MEDS: ASPIRIN 81 MG ECTAB PO SCH (08:17)
[2021-10-05] MEDS: VERAPAMIL HCL 120 MG TABCR PO SCH (08:17)
[2021-10-05] MEDS: ATORVASTATIN 20 MG TAB PO SCH (08:17)
[2021-10-05] MEDS: PANTOprazole 40 MG TAB PO SCH (08:17)
[2021-10-05] MEDS: guaiFENesin 600 MG TABCR PO SCH ×2 (08:17→20:31)
[2021-10-05] MEDS: FERROUS SULFATE 325 MG TAB PO SCH (08:17)
[2021-10-05] MEDS: HEPARIN SOD 5,000 UNIT/0.5 ML VIAL SQ SCH ×2 (08:17→20:36)
[2021-10-05] MEDS: ACETAMINOPHEN 500 MG TAB PO SCH ×2 (08:17→20:31)
[2021-10-05] MEDS: HYDROCORTISONE HC 2.5% CRM 30GM TUBE EXT PRN ×3 (10:30→20:31)
--- NOTE | 2021-10-05 14:32 | Hospitalist Progress Note ---
Date of Service October 05, 2021 Assessment & Plan (1) Pneumonia due to COVID-19 virus: Plan: This is a 89-year-old female with PMHx of cerebral aneurysm, HTN, GERD, diffuse osteoarthritis, osteoporosis, HLD and Alzheimer dementia who presented after having sustained an acute fall where she hit her head. - Tested positive for COVID-19 on 09/18, symptoms started about 1 week before admission, unvaccinated - Procalcitonin was 0.17 on admission. CXR showed an early pneumonia. - Pt was hypoxic with O2 sats in low 80s and was requiring 2 to 3 L. Currently saturating well on room air. - Remdesivir 200 mg IV x 1 then 100 mg daily thereafter, Decadron 6 mg IV daily -finished courses of remdesivir and Decadron - Medically stable to be discharged - Isolation precautions DC'd on 10/02 - Patient agreeable to COVID-19 vaccine - received vaccine on 10/04 (2) HTN (hypertension): Plan: -BP controlled -Continue home verapamil -Lasix and HCTZ on hold since admission -BP remains controlled, no edema on exam. Patient may not need going forward (3) Fall: Plan: - Mechanical - Noted on imaging that there is a partially calcified extra-axial 1.4 cm lesion of the left posterior fossa is suggestive of a probable meningioma - PT/OT consulted and both recommending SNF placement (4) Osteoarthrosis: Plan: - Stable, chronic (5) GERD (gastroesophageal reflux disease): Plan: - Continue omeprazole (6) HLD (hyperlipidemia): Plan: - Continue atorvastatin 20 mg daily (7) Alzheimer's dementia: Plan: - Appears that this is fairly new diagnosis per PCP this past summer, son also report memory is worsening. - Pt lives at home by self and has 2 agencies coming in to visit her nearly daily - son is asking for placement at [facility] facility. Pt has suggested this to him previously. DVT ppx: SQ Heparin Dispo: Awaiting placement. Per CM, [facility] has a referral and may be able to accept patient on 10/10.[facility] also has a referral and are aware PT received vaccine.They are reviewing. Son Chato updated over the phone. Admission and Anticipated Discharge Date Admission Date: September 18, 2021 Supervising Physician Co-Signing Physician Notes Attending addendum The patient was seen and examined in medical floor She remains stable and denies any significant symptoms except weakness She has had vaccine for COVID-19 virus in the hospital On examination Lying in bed without any acute distress Hemodynamically stable Her labs, imaging studies and medications reviewed Remains medically stable to be transferred Agree with assessment and plan as outlined above by JORGE LUIS Garcia Dr Subjective Patient seen and examined in 323-1 in follow-up for COVID-19 pneumonia. Patient is resting in bed, offers no complaints. Denies fever, chills, headache, chest pain, shortness of breath, cough. Reports a good appetite. No abdominal pain, nausea, vomiting. Regular bowel movements, most recently this morning per chart review. Initially refused covid vaccine but agreeable on 10/04/21. Review of Systems Review of Systems: At least ten systems reviewed and negative except as noted in the HPI. Physical Exam Physical Exam: Gen: WD/WN, NAD, lying in bed, resting comfortably, A&Ox3 HEENT: Normocephalic, atraumatic, conjunctivae moist, sclerae anicteric, mucous membranes moist Lung: diminished breath sounds bilaterally, no wheezes/rales/rhonchi Heart: Regular rate, regular rhythm, no murmurs, rubs, or gallops Abdomen: Soft, NT, ND +BS x 4 Extremities: no edema Skin: Warm, no rash Results & Data Results & Data ([facility]) Vital Signs (Past 12 Hours) Vital Signs Temp Pulse Resp BP Pulse Ox 10/05/21 14:21 36.5 C 58 L 16 108/63 95 10/05/21 07:22 36.2 C L 56 L 17 108/62 95
[2021-10-06] MEDS: ATORVASTATIN 20 MG TAB PO SCH (08:29)
[2021-10-06] MEDS: guaiFENesin 600 MG TABCR PO SCH (08:29)
[2021-10-06] MEDS: VERAPAMIL HCL 120 MG TABCR PO SCH (08:29)
[2021-10-06] MEDS: PANTOprazole 40 MG TAB PO SCH ×2 (08:30→08:40)
[2021-10-06] MEDS: FERROUS SULFATE 325 MG TAB PO SCH ×2 (08:30→08:40)
[2021-10-06] MEDS: ASPIRIN 81 MG ECTAB PO SCH (08:30)
[2021-10-06] MEDS: HEPARIN SOD 5,000 UNIT/0.5 ML VIAL SQ SCH ×3 (08:31→22:05)
[2021-10-06] MEDS: ACETAMINOPHEN 500 MG TAB PO SCH ×3 (08:35→22:05)
[2021-10-06] MEDS: POLYETHYLENE (MIRALAX) 17 GM PACK PO PRN (09:58)
[2021-10-06 10:47] LABS: Hematocrit (blood only) 41.1 % (37-47); Mean Corpuscular Hemoglobin 30.9 pg (25-34); Mean Corpuscular Hgb Conc 31.6 g/dL (32-36); Mean Corpuscular Volume 97.6 fL (80-100); Mean Platelet Volume 11.5 fL (7.4-10.4); Platelet Count 197 K/uL (130-400); RDW Coefficient of Variation 16.2 % (11.5-14.5); RDW Standard Deviation 56.1 fL (36.4-46.3); Red Blood Count 4.21 M/uL (4.2-5.4); White Blood Count 11.36 K/uL (4.8-10.8)
--- NOTE | 2021-10-06 13:06 | Hospitalist Progress Note ---
Date of Service October 06, 2021 Assessment & Plan (1) Pneumonia due to COVID-19 virus: Plan: This is a 89-year-old female with PMHx of cerebral aneurysm, HTN, GERD, diffuse osteoarthritis, osteoporosis, HLD and Alzheimer dementia who presented after having sustained an acute fall where she hit her head. - Tested positive for COVID-19 on 09/18, symptoms started about 1 week before admission, unvaccinated - Procalcitonin was 0.17 on admission. CXR showed an early pneumonia. - Pt was hypoxic with O2 sats in low 80s and was requiring 2 to 3 L. Currently saturating well on room air. - Remdesivir 200 mg IV x 1 then 100 mg daily thereafter, Decadron 6 mg IV daily -finished courses of remdesivir and Decadron - Medically stable to be discharged - Isolation precautions DC'd on 10/02 - Patient agreeable to COVID-19 vaccine - received vaccine on 10/04 -Remains stable without any significant shortness of breath, cough or chest pain and/or palpitation (2) HTN (hypertension): Plan: -BP controlled -Continue home verapamil -Lasix and HCTZ on hold since admission -BP remains controlled, no edema on exam. Patient may not need going forward -Blood pressure remains stable (3) Fall: Plan: - Mechanical - Noted on imaging that there is a partially calcified extra-axial 1.4 cm lesion of the left posterior fossa is suggestive of a probable meningioma - PT/OT consulted and both recommending SNF placement -Likely to be transferred on Friday (4) Osteoarthrosis: Plan: - Stable, chronic (5) GERD (gastroesophageal reflux disease): Plan: - Continue omeprazole (6) HLD (hyperlipidemia): Plan: - Continue atorvastatin 20 mg daily (7) Alzheimer's dementia: Plan: - Appears that this is fairly new diagnosis per PCP this past summer, son also report memory is worsening. - Pt lives at home by self and has 2 agencies coming in to visit her nearly daily - son is asking for placement at [facility] facility. Pt has suggested this to him previously. DVT ppx: SQ Heparin Dispo: Awaiting placement. Per , Cristian Piedra has a referral and may be able to accept patient on 10/10.[facility] also has a referral and are aware PT received vaccine.They are reviewing. Son Chato updated over the phone. 10/05/2021 Admission and Anticipated Discharge Date Admission Date: September 18, 2021 Subjective Patient seen and examined in [facility]- in follow-up for COVID-19 pneumonia. Patient is resting in bed, offers no complaints. Denies fever, chills, headache, chest pain, shortness of breath, cough. Reports a good appetite. No abdominal pain, nausea, vomiting. Regular bowel movements, most recently this morning per chart review. Initially refused covid vaccine but agreeable on 10/04/21. 10/06/2021 The patient was seen and examined in medical floor She remained stable and complains to have minimal shortness of breath and abdominal discomfort at rest She has been refusing blood test and also heparin short Review of Systems Review of Systems: All systems reviewed and are unremarkable except as noted below Musculoskeletal: Generally very weak and lethargic Physical Exam Physical Exam: Lying in bed comfortably Constitutional: + ill appearing and + thin Eyes: PERRL, conjunctivae normal, anicteric sclerae ENMT: external ear and nose normal, oropharynx normal Neck: trachea midline, no thyromegaly Respiratory: no respiratory distress Auscultation: + diminished lung sounds and + crackles (Minimal crackles at the bases) Cardiovascular: Rate/Rhythm: regular rate and regular rhythm; not tachycardic Heart Sounds: normal S1 and normal S2; no murmur Extremities: no edema Gastrointestinal (Abdomen): Inspection/Auscultation: normal bowel sounds; abdomen not distended Percussion/Palpation: abdomen soft; abdomen nontender Musculoskeletal: No acute arthritis in any joint Neurologic: Alert, awake and oriented. Very weak generally Results & Data Results & Data ([facility]) Vital Signs (Past 12 Hours) Vital Signs Temp Pulse Pulse Resp BP Pulse Ox 10/06/21 08:28 68 10/06/21 08:02 36.4 C L 60 16 113/70 94 Laboratory Results Short CBC 10/06/21 Range/Units 10:35 WBC 11.36 H (4.8-10.8) K/uL Hgb 13.0 (12.0-16.0) g/dL Hct 41.1 (37-47) % Plt Count 197 (130-400) K/uL Medications Administered Current Inpatient Medications Acetaminophen (Acetaminophen 325 Mg Tab) 650 mg PO Q4H PRN PRN Reason: Moderate Pain Stop: 10/18/21 11:29 Last Admin: 09/28/21 16:50 Dose: 650 mg Documented by: Acetaminophen (Acetaminophen 500 Mg Tab) 500 mg PO BID [facility] Stop: 10/23/21 20:59 Last Admin: 10/06/21 08:40 Dose: Not Given Documented by: Albuterol (Albuterol Hfa 8 Gm Inhaler) 2 puffs INH QIDR PRN PRN Reason: Shortness Of Breath Or Wheezing Stop: 10/18/21 12:59 Aspirin (Aspirin 81 Mg Ectab) 81 mg PO DAILY [facility] Stop: 10/19/21 08:59 Last Admin: 10/06/21 08:30 Dose: 81 mg Documented by: Atorvastatin Calcium (Atorvastatin 20 Mg Tab) 20 mg PO DAILY [facility] Stop: 10/19/21 08:59 Last Admin: 10/06/21 08:29 Dose: 20 mg Documented by: Ferrous Sulfate (Ferrous Sulfate 325 Mg Tab) 325 mg PO DAILY [facility] Stop: 10/19/21 08:59 Last Admin: 10/06/21 08:40 Dose: Not Given Documented by: Heparin Sodium (Porcine) (Heparin Sod 5,000 Unit/0.5 Ml Vial) 5,000 units SQ Q12 [facility] Stop: 10/18/21 14:29 Last Admin: 10/06/21 08:41 Dose: Not Given Documented by: Hydrocortisone (Hydrocortisone Hc 2.5% Crm 30gm Tube) 1 appln EXT BID PRN PRN Reason: Hemorrhoids Stop: 10/30/21 17:33 Last Admin: 10/05/21 20:31 Dose: 1 appln Documented by: Ondansetron HCl (Ondansetron Inj 2 Mg/Ml 2 Ml Vial) 4 mg IV Q4H PRN PRN Reason: Nausea And Vomiting Stop: 10/18/21 11:29 Last Admin: 10/02/21 20:11 Dose: 4 mg Documented by: Pantoprazole Sodium (Pantoprazole 40 Mg Tab) 40 mg PO DAILY [facility]; Protocol Stop: 10/19/21 08:59 Last Admin: 10/06/21 08:40 Dose: Not Given Documented by: Polyethylene Glycol (Polyethylene (Miralax) 17 Gm Pack) 17 gm PO DAILY PRN PRN Reason: Constipation Stop: 10/27/21 06:56 Last Admin: 10/06/21 09:58 Dose: 17 gm Documented by: Verapamil HCl (Verapamil Hcl 120 Mg Tabcr) [facility] [place]: 10/19/21 08:59 Last Admin: 10/06/21 08:29 Dose: 120 mg Documented by:
[2021-10-06] MEDS: ONDANSETRON INJ 2 MG/ML 2 ML VIAL IV PRN (15:48)
[2021-10-07] MEDS: ONDANSETRON INJ 2 MG/ML 2 ML VIAL IV PRN (10:13)
[2021-10-07] MEDS: POLYETHYLENE (MIRALAX) 17 GM PACK PO PRN (10:52)
[2021-10-07] MEDS: VERAPAMIL HCL 120 MG TABCR PO SCH (10:52)
[2021-10-07] MEDS: ATORVASTATIN 20 MG TAB PO SCH (10:52)
[2021-10-07] MEDS: PANTOprazole 40 MG TAB PO SCH (10:53)
[2021-10-07] MEDS: ASPIRIN 81 MG ECTAB PO SCH (10:53)
[2021-10-07] MEDS: FERROUS SULFATE 325 MG TAB PO SCH (10:53)
[2021-10-07] MEDS: HEPARIN SOD 5,000 UNIT/0.5 ML VIAL SQ SCH ×2 (10:54→20:05)
[2021-10-07] MEDS: ACETAMINOPHEN 500 MG TAB PO SCH ×2 (11:23→20:05)
--- NOTE | 2021-10-07 14:06 | Hospitalist Progress Note ---
Date of Service October 07, 2021 Assessment & Plan (1) Pneumonia due to COVID-19 virus: Plan: This is a 89-year-old female with PMHx of cerebral aneurysm, HTN, GERD, diffuse osteoarthritis, osteoporosis, HLD and Alzheimer dementia who presented after having sustained an acute fall where she hit her head. - Tested positive for COVID-19 on 09/18, symptoms started about 1 week before admission, unvaccinated - Procalcitonin was 0.17 on admission. CXR showed an early pneumonia. - Pt was hypoxic with O2 sats in low 80s and was requiring 2 to 3 L. Currently saturating well on room air. - Remdesivir 200 mg IV x 1 then 100 mg daily thereafter, Decadron 6 mg IV daily -finished courses of remdesivir and Decadron - Medically stable to be discharged - Isolation precautions DC'd on 10/02 - Patient agreeable to COVID-19 vaccine - received vaccine on 10/04 -Remains stable without any significant shortness of breath, cough or chest pain and/or palpitation Nauseous at times without vomiting No abdominal distention Maalox has been given and bowel is moving Zofran was given to (2) HTN (hypertension): Plan: -BP controlled -Continue home verapamil -Lasix and HCTZ on hold since admission -BP remains controlled, no edema on exam. Patient may not need going forward -Blood pressure remains stable (3) Fall: Plan: - Mechanical - Noted on imaging that there is a partially calcified extra-axial 1.4 cm lesion of the left posterior fossa is suggestive of a probable meningioma - PT/OT consulted and both recommending SNF placement -Likely to be transferred on Friday (4) Osteoarthrosis: Plan: - Stable, chronic (5) GERD (gastroesophageal reflux disease): Plan: - Continue omeprazole (6) HLD (hyperlipidemia): Plan: - Continue atorvastatin 20 mg daily (7) Alzheimer's dementia: Plan: - Appears that this is fairly new diagnosis per PCP this past summer, son also report memory is worsening. - Pt lives at home by self and has 2 agencies coming in to visit her nearly daily - son is asking for placement at [facility]. Pt has suggested this to him previously. DVT ppx: SQ Heparin Dispo: Awaiting placement. Per , Cristian Piedra has a referral and may be able to accept patient on 10/10.[facility] also has a referral and are aware PT received vaccine.They are reviewing. Peter Reis updated over the phone. 10/05/2021 Admission and Anticipated Discharge Date Admission Date: September 18, 2021 Subjective Patient seen and examined in [facility] in follow-up for COVID-19 pneumonia. Patient is resting in bed, offers no complaints. Denies fever, chills, headache, chest pain, shortness of breath, cough. Reports a good appetite. No abdominal pain, nausea, vomiting. Regular bowel movements, most recently this morning per chart review. Initially refused covid vaccine but agreeable on 10/04/21. 10/06/2021 The patient was seen and examined in medical floor She remained stable and complains to have minimal shortness of breath and abdominal discomfort at rest She has been refusing blood test and also heparin short 10/07/2021 The patient was seen and examined in medical floor She has been stable and complains to have some nausea without any discomfort in the abdomen and/or shortness of breath Review of Systems Review of Systems: All systems reviewed and are unremarkable except as noted below Constitutional: all noted and negative except for above Respiratory: Mild S OB at rest but no desaturation Musculoskeletal: Generally very weak and lethargic Physical Exam Physical Exam: Lying in bed comfortably Constitutional: + ill appearing and + thin Eyes: PERRL, conjunctivae normal, anicteric sclerae ENMT: external ear and nose normal, oropharynx normal Neck: trachea midline, no thyromegaly Respiratory: no respiratory distress Auscultation: + diminished lung sounds and + crackles (Minimal crackles at the bases) Cardiovascular: Rate/Rhythm: regular rate and regular rhythm; not tachycardic Heart Sounds: normal S1 and normal S2; no murmur Extremities: no edema Gastrointestinal (Abdomen): Inspection/Auscultation: normal bowel sounds; abdomen not distended Percussion/Palpation: abdomen soft; abdomen nontender Musculoskeletal: No acute distress at rest Neurologic: Alert, awake and oriented x3 Results & Data Results & Data ([facility]) Vital Signs (Past 12 Hours) Vital Signs Temp Pulse Resp BP Pulse Ox 10/07/21 07:34 36.5 C 73 16 108/71 95 Medications Administered Current Inpatient Medications Acetaminophen (Acetaminophen 325 Mg Tab) 650 mg PO Q4H PRN PRN Reason: Moderate Pain Stop: 10/18/21 11:29 Last Admin: 09/28/21 16:50 Dose: 650 mg Documented by: Acetaminophen (Acetaminophen 500 Mg Tab) 500 mg PO BID [facility] Stop: 10/23/21 20:59 Last Admin: 10/07/21 11:23 Dose: 500 mg Documented by: Albuterol (Albuterol Hfa 8 Gm Inhaler) 2 puffs INH QIDR PRN PRN Reason: Shortness Of Breath Or Wheezing Stop: 10/18/21 12:59 Aspirin (Aspirin 81 Mg Ectab) 81 mg PO DAILY [facility] Stop: 10/19/21 08:59 Last Admin: 10/07/21 10:53 Dose: 81 mg Documented by: Atorvastatin Calcium (Atorvastatin 20 Mg Tab) 20 mg PO DAILY [facility] Stop: 10/19/21 08:59 Last Admin: 10/07/21 10:52 Dose: 20 mg Documented by: Ferrous Sulfate (Ferrous Sulfate 325 Mg Tab) 325 mg PO DAILY [facility] Stop: 10/19/21 08:59 Last Admin: 10/07/21 10:53 Dose: 325 mg Documented by: Heparin Sodium (Porcine) (Heparin Sod 5,000 Unit/0.5 Ml Vial) 5,000 units SQ Q12 [facility] Stop: 10/18/21 14:29 Last Admin: 10/07/21 10:54 Dose: 5,000 units Documented by: Hydrocortisone (Hydrocortisone Hc 2.5% Crm 30gm Tube) 1 appln EXT BID PRN PRN Reason: Hemorrhoids Stop: 10/30/21 17:33 Last Admin: 10/05/21 20:31 Dose: 1 appln Documented by: Ondansetron HCl (Ondansetron Inj 2 Mg/Ml 2 Ml Vial) 4 mg IV Q4H PRN PRN Reason: Nausea And Vomiting Stop: 10/18/21 11:29 Last Admin: 10/07/21 10:13 Dose: 4 mg Documented by: Pantoprazole Sodium (Pantoprazole 40 Mg Tab) 40 mg PO DAILY [facility]; Protocol Stop: 10/19/21 08:59 Last Admin: 10/07/21 10:53 Dose: 40 mg Documented by: Polyethylene Glycol (Polyethylene (Miralax) 17 Gm Pack) 17 gm PO DAILY PRN PRN Reason: Constipation Stop: 10/27/21 06:56 Last Admin: 10/07/21 10:52 Dose: 17 gm Documented by: Verapamil HCl (Verapamil Hcl 120 Mg Tabcr) [facility] [place]: 10/19/21 08:59 Last Admin: 10/07/21 10:52 Dose: 120 mg Documented by:
[2021-10-07] MEDS ORDERED: ALBUTEROL 0.083% NEBU SOLN 3 ML VIAL NEB STA (16:20)
[2021-10-08] MEDS: FERROUS SULFATE 325 MG TAB PO SCH (08:40)
[2021-10-08] MEDS: PANTOprazole 40 MG TAB PO SCH (08:40)
[2021-10-08] MEDS: VERAPAMIL HCL 120 MG TABCR PO SCH (08:40)
[2021-10-08] MEDS: ATORVASTATIN 20 MG TAB PO SCH (08:41)
[2021-10-08] MEDS: HEPARIN SOD 5,000 UNIT/0.5 ML VIAL SQ SCH ×2 (08:41→20:14)
[2021-10-08] MEDS: ASPIRIN 81 MG ECTAB PO SCH (08:41)
[2021-10-08] MEDS: ACETAMINOPHEN 500 MG TAB PO SCH ×2 (08:43→20:13)
--- NOTE | 2021-10-08 17:16 | Hospitalist Progress Note ---
Date of Service October 08, 2021 Assessment & Plan (1) Pneumonia due to COVID-19 virus: Plan: This is a 89-year-old female with PMHx of cerebral aneurysm, HTN, GERD, diffuse osteoarthritis, osteoporosis, HLD and Alzheimer dementia who presented after having sustained an acute fall where she hit her head. - Tested positive for COVID-19 on 09/18, symptoms started about 1 week before admission, unvaccinated - Procalcitonin was 0.17 on admission. CXR showed an early pneumonia. - Pt was hypoxic with O2 sats in low 80s and was requiring 2 to 3 L. Currently saturating well on room air. - Remdesivir 200 mg IV x 1 then 100 mg daily thereafter, Decadron 6 mg IV daily -finished courses of remdesivir and Decadron - Medically stable to be discharged - Isolation precautions DC'd on 10/02 - Patient agreeable to COVID-19 vaccine - received vaccine on 10/04 -Remains stable without any significant shortness of breath, cough or chest pain and/or palpitation -Medically stable with extreme lethargic and occasional nausea without vomiting -She has not been drinking or eating much-needs motivation Nauseous at times without vomiting No abdominal distention Maalox has been given and bowel is moving Zofran was given to (2) HTN (hypertension): Plan: -BP controlled -Continue home verapamil -Lasix and HCTZ on hold since admission -BP remains controlled, no edema on exam. Patient may not need going forward -Blood pressure remains stable (3) Fall: Plan: - Mechanical - Noted on imaging that there is a partially calcified extra-axial 1.4 cm lesion of the left posterior fossa is suggestive of a probable meningioma - PT/OT consulted and both recommending SNF placement -Likely to be transferred on Friday (4) Osteoarthrosis: Plan: - Stable, chronic (5) GERD (gastroesophageal reflux disease): Plan: - Continue omeprazole (6) HLD (hyperlipidemia): Plan: - Continue atorvastatin 20 mg daily (7) Alzheimer's dementia: Plan: - Appears that this is fairly new diagnosis per PCP this past summer, son also report memory is worsening. - Pt lives at home by self and has 2 agencies coming in to visit her nearly daily - son is asking for placement at [facility] facility. Pt has suggested this to him previously. DVT ppx: SQ Heparin Dispo: Awaiting placement. Per , Cristian Piedra has a referral and may be able to accept patient on 10/10.[facility] also has a referral and are aware PT received vaccine.They are reviewing. Peter Reis updated over the phone. 10/05/2021 Awaiting placement Admission and Anticipated Discharge Date Admission Date: September 18, 2021 Subjective Patient seen and examined in [facility] in follow-up for COVID-19 pneumonia. Patient is resting in bed, offers no complaints. Denies fever, chills, headache, chest pain, shortness of breath, cough. Reports a good appetite. No abdominal pain, nausea, vomiting. Regular bowel movements, most recently this morning per chart review. Initially refused covid vaccine but agreeable on 10/04/21. 10/06/2021 The patient was seen and examined in medical floor She remained stable and complains to have minimal shortness of breath and abdominal discomfort at rest She has been refusing blood test and also heparin short 10/07/2021 The patient was seen and examined in medical floor She has been stable and complains to have some nausea without any discomfort in the abdomen and/or shortness of breath 10/08/2021 The patient was seen and examined in medical floor She remains very weak and lethargic and has nonspecific complaints Has not been eating and drinking enough Review of Systems Review of Systems: All systems reviewed and are unremarkable except as noted below Constitutional: all noted and negative except for above Respiratory: Mild S OB at rest but no desaturation Musculoskeletal: Generally very weak and lethargic Physical Exam Physical Exam: Lying in bed comfortably but very lethargic Constitutional: + ill appearing and + thin Eyes: PERRL, conjunctivae normal, anicteric sclerae ENMT: external ear and nose normal, oropharynx normal Neck: trachea midline, no thyromegaly Respiratory: no respiratory distress Auscultation: + diminished lung sounds and + crackles (Minimal crackles at the bases) Cardiovascular: Rate/Rhythm: regular rate and regular rhythm; not tachycardic Heart Sounds: normal S1 and normal S2; no murmur Extremities: no edema Gastrointestinal (Abdomen): Inspection/Auscultation: normal bowel sounds; abdomen not distended Percussion/Palpation: abdomen soft; abdomen nontender Musculoskeletal: No acute arthritis in any joint Neurologic: Alert and awake. Results & Data Results & Data ([facility]) Vital Signs (Past 12 Hours) Vital Signs Temp Pulse Resp BP Pulse Ox 10/08/21 14:47 36.7 C 75 16 108/67 95 10/08/21 07:33 36.5 C 75 16 106/66 96 Medications Administered Current Inpatient Medications Acetaminophen (Acetaminophen 325 Mg Tab) 650 mg PO Q4H PRN PRN Reason: Moderate Pain Stop: 10/18/21 11:29 Last Admin: 09/28/21 16:50 Dose: 650 mg Documented by: Acetaminophen (Acetaminophen 500 Mg Tab) 500 mg PO BID [facility] Stop: 10/23/21 20:59 Last Admin: 10/08/21 08:43 Dose: 500 mg Documented by: Albuterol (Albuterol Hfa 8 Gm Inhaler) 2 puffs INH QIDR PRN PRN Reason: Shortness Of Breath Or Wheezing Stop: 10/18/21 12:59 Aspirin (Aspirin 81 Mg Ectab) 81 mg PO DAILY [facility] Stop: 10/19/21 08:59 Last Admin: 10/08/21 08:41 Dose: 81 mg Documented by: Atorvastatin Calcium (Atorvastatin 20 Mg Tab) 20 mg PO DAILY [facility] Stop: 10/19/21 08:59 Last Admin: 10/08/21 08:41 Dose: 20 mg Documented by: Ferrous Sulfate (Ferrous Sulfate 325 Mg Tab) 325 mg PO DAILY [facility] Stop: 10/19/21 08:59 Last Admin: 10/08/21 08:40 Dose: 325 mg Documented by: Heparin Sodium (Porcine) (Heparin Sod 5,000 Unit/0.5 Ml Vial) 5,000 units SQ Q12 [facility] Stop: 10/18/21 14:29 Last Admin: 10/08/21 08:41 Dose: 5,000 units Documented by: Hydrocortisone (Hydrocortisone Hc 2.5% Crm 30gm Tube) 1 appln EXT BID PRN PRN Reason: Hemorrhoids Stop: 10/30/21 17:33 Last Admin: 10/05/21 20:31 Dose: 1 appln Documented by: Ondansetron HCl (Ondansetron Inj 2 Mg/Ml 2 Ml Vial) 4 mg IV Q4H PRN PRN Reason: Nausea And Vomiting Stop: 10/18/21 11:29 Last Admin: 10/07/21 10:13 Dose: 4 mg Documented by: Pantoprazole Sodium (Pantoprazole 40 Mg Tab) 40 mg PO DAILY [facility]; Protocol Stop: 10/19/21 08:59 Last Admin: 10/08/21 08:40 Dose: 40 mg Documented by: Polyethylene Glycol (Polyethylene (Miralax) 17 Gm Pack) 17 gm PO DAILY PRN PRN Reason: Constipation Stop: 10/27/21 06:56 Last Admin: 10/07/21 10:52 Dose: 17 gm Documented by: Verapamil HCl (Verapamil Hcl 120 Mg Tabcr) [facility] [place]: 10/19/21 08:59 Last Admin: 10/08/21 08:40 Dose: 120 mg Documented by:
[2021-10-09] MEDS: ACETAMINOPHEN 325 MG TAB PO PRN (06:00)
[2021-10-09] MEDS: ATORVASTATIN 20 MG TAB PO SCH (08:53)
[2021-10-09] MEDS: FERROUS SULFATE 325 MG TAB PO SCH (08:53)
[2021-10-09] MEDS: PANTOprazole 40 MG TAB PO SCH (08:53)
[2021-10-09] MEDS: ASPIRIN 81 MG ECTAB PO SCH (08:53)
[2021-10-09] MEDS: VERAPAMIL HCL 120 MG TABCR PO SCH (08:54)
[2021-10-09] MEDS: HEPARIN SOD 5,000 UNIT/0.5 ML VIAL SQ SCH ×2 (08:54→21:51)
[2021-10-09] MEDS: ACETAMINOPHEN 500 MG TAB PO SCH ×2 (08:57→21:50)
[2021-10-09] MEDS: ONDANSETRON INJ 2 MG/ML 2 ML VIAL IV PRN (10:13)
[2021-10-09] MEDS ORDERED: SIMETHICONE 80 MG CHEW PO PRN (15:50)
--- NOTE | 2021-10-09 15:50 | Hospitalist Progress Note ---
Date of Service October 09, 2021 Assessment & Plan (1) Pneumonia due to COVID-19 virus: Plan: This is a 89-year-old female with PMHx of cerebral aneurysm, HTN, GERD, diffuse osteoarthritis, osteoporosis, HLD and Alzheimer dementia who presented after having sustained an acute fall where she hit her head. - Tested positive for COVID-19 on 09/18, symptoms started about 1 week before admission, unvaccinated - Procalcitonin was 0.17 on admission. CXR showed an early pneumonia. - Pt was hypoxic with O2 sats in low 80s and was requiring 2 to 3 L. Currently saturating well on room air. - Remdesivir 200 mg IV x 1 then 100 mg daily thereafter, Decadron 6 mg IV daily -finished courses of remdesivir and Decadron - Medically stable to be discharged - Isolation precautions DC'd on 10/02 - Patient agreeable to COVID-19 vaccine - received vaccine on 10/04 -Remains stable without any significant shortness of breath, cough or chest pain and/or palpitation -Medically stable with extreme lethargic and occasional nausea without vomiting -She has not been drinking or eating much-needs motivation -A little better today Nauseous at times without vomiting No abdominal distention Maalox has been given and bowel is moving Zofran was given to We will also provide simethicone for gas pain (2) HTN (hypertension): Plan: -BP controlled -Continue home verapamil -Lasix and HCTZ on hold since admission -BP remains controlled, no edema on exam. Patient may not need going forward -Blood pressure remains stable (3) Fall: Plan: - Mechanical - Noted on imaging that there is a partially calcified extra-axial 1.4 cm lesion of the left posterior fossa is suggestive of a probable meningioma - PT/OT consulted and both recommending SNF placement -Awaiting placement (4) Osteoarthrosis: Plan: - Stable, chronic (5) GERD (gastroesophageal reflux disease): Plan: - Continue omeprazole (6) HLD (hyperlipidemia): Plan: - Continue atorvastatin 20 mg daily (7) Alzheimer's dementia: Plan: - Appears that this is fairly new diagnosis per PCP this past summer, son also report memory is worsening. - Pt lives at home by self and has 2 agencies coming in to visit her nearly daily - son is asking for placement at [facility] facility. Pt has suggested this to him previously. DVT ppx: SQ Heparin Dispo: Awaiting placement. Per , Cristian Piedra has a referral and may be able to accept patient on 10/10.[facility] also has a referral and are aware PT received vaccine.They are reviewing. Son Chato updated over the phone. Awaiting placement Admission and Anticipated Discharge Date Admission Date: September 18, 2021 Subjective Patient seen and examined in [facility]- in follow-up for COVID-19 pneumonia. Patient is resting in bed, offers no complaints. Denies fever, chills, headache, chest pain, shortness of breath, cough. Reports a good appetite. No abdominal pain, nausea, vomiting. Regular bowel movements, most recently this morning per chart review. Initially refused covid vaccine but agreeable on 10/04/21. 10/06/2021 The patient was seen and examined in medical floor She remained stable and complains to have minimal shortness of breath and abdominal discomfort at rest She has been refusing blood test and also heparin short 10/07/2021 The patient was seen and examined in medical floor She has been stable and complains to have some nausea without any discomfort in the abdomen and/or shortness of breath 10/08/2021 The patient was seen and examined in medical floor She remains very weak and lethargic and has nonspecific complaints Has not been eating and drinking enough 10/09/2021 The patient was seen and examined in medical floor She has been much better today and complains to have some abdominal discomfort secondary to gas She moved her bowels yesterday Feels nauseous and received Zofran Review of Systems Review of Systems: All systems reviewed and are unremarkable except as noted below Constitutional: all noted and negative except for above Respiratory: Mild S OB at rest but no desaturation Musculoskeletal: Generally very weak and lethargic Physical Exam Physical Exam: Lying in bed comfortably but very lethargic Constitutional: + ill appearing and + thin Eyes: PERRL, conjunctivae normal, anicteric sclerae ENMT: external ear and nose normal, oropharynx normal Neck: trachea midline, no thyromegaly Respiratory: no respiratory distress Auscultation: + diminished lung sounds and + crackles (Minimal crackles at the bases) Cardiovascular: Rate/Rhythm: regular rate and regular rhythm; not tachycardic Heart Sounds: normal S1 and normal S2; no murmur Extremities: no edema Gastrointestinal (Abdomen): Inspection/Auscultation: normal bowel sounds; abdomen not distended Percussion/Palpation: abdomen soft; abdomen nontender Musculoskeletal: No acute arthritis in any joint Neurologic: Alert, awake. Pleasantly confused. Generally very weak and lethargic Results & Data Results & Data ([facility]) Vital Signs (Past 12 Hours) Vital Signs Temp Pulse Resp BP Pulse Ox 10/09/21 07:16 36.6 C 75 16 108/69 96 Medications Administered Current Inpatient Medications Acetaminophen (Acetaminophen 325 Mg Tab) 650 mg PO Q4H PRN PRN Reason: Moderate Pain Stop: 10/18/21 11:29 Last Admin: 10/09/21 06:00 Dose: 650 mg Documented by: Acetaminophen (Acetaminophen 500 Mg Tab) 500 mg PO BID [facility] Stop: 10/23/21 20:59 Last Admin: 10/09/21 08:57 Dose: 500 mg Documented by: Albuterol (Albuterol Hfa 8 Gm Inhaler) 2 puffs INH QIDR PRN PRN Reason: Shortness Of Breath Or Wheezing Stop: 10/18/21 12:59 Aspirin (Aspirin 81 Mg Ectab) 81 mg PO DAILY [facility] Stop: 10/19/21 08:59 Last Admin: 10/09/21 08:53 Dose: 81 mg Documented by: Atorvastatin Calcium (Atorvastatin 20 Mg Tab) 20 mg PO DAILY [facility] Stop: 10/19/21 08:59 Last Admin: 10/09/21 08:53 Dose: 20 mg Documented by: Ferrous Sulfate (Ferrous Sulfate 325 Mg Tab) 325 mg PO DAILY [facility] Stop: 10/19/21 08:59 Last Admin: 10/09/21 08:53 Dose: 325 mg Documented by: Heparin Sodium (Porcine) (Heparin Sod 5,000 Unit/0.5 Ml Vial) 5,000 units SQ Q12 [facility] Stop: 10/18/21 14:29 Last Admin: 10/09/21 08:54 Dose: 5,000 units Documented by: Hydrocortisone (Hydrocortisone Hc 2.5% Crm 30gm Tube) 1 appln EXT BID PRN PRN Reason: Hemorrhoids Stop: 10/30/21 17:33 Last Admin: 10/05/21 20:31 Dose: 1 appln Documented by: Ondansetron HCl (Ondansetron Inj 2 Mg/Ml 2 Ml Vial) 4 mg IV Q4H PRN PRN Reason: Nausea And Vomiting Stop: 10/18/21 11:29 Last Admin: 10/09/21 10:13 Dose: 4 mg Documented by: Pantoprazole Sodium (Pantoprazole 40 Mg Tab) 40 mg PO DAILY [facility]; Protocol Stop: 10/19/21 08:59 Last Admin: 10/09/21 08:53 Dose: 40 mg Documented by: Polyethylene Glycol (Polyethylene (Miralax) 17 Gm Pack) 17 gm PO DAILY PRN PRN Reason: Constipation Stop: 10/27/21 06:56 Last Admin: 10/07/21 10:52 Dose: 17 gm Documented by: Verapamil HCl (Verapamil Hcl 120 Mg Tabcr) [facility] Stop: 10/19/21 08:59 Last Admin: 10/09/21 08:54 Dose: 120 mg Documented by:
[2021-10-09] MEDS ORDERED: SODIUM CHLORIDE 0.9% 500 ML IV SCH (23:00)
[2021-10-10] MEDS: PANTOprazole 40 MG TAB PO SCH (08:27)
[2021-10-10] MEDS: FERROUS SULFATE 325 MG TAB PO SCH (08:27)
[2021-10-10] MEDS: VERAPAMIL HCL 120 MG TABCR PO SCH (08:28)
[2021-10-10] MEDS: ASPIRIN 81 MG ECTAB PO SCH (08:28)
[2021-10-10] MEDS: ATORVASTATIN 20 MG TAB PO SCH (08:28)
[2021-10-10] MEDS: HEPARIN SOD 5,000 UNIT/0.5 ML VIAL SQ SCH ×2 (08:28→21:38)
[2021-10-10] MEDS: ACETAMINOPHEN 500 MG TAB PO SCH ×2 (08:30→21:38)
--- NOTE | 2021-10-10 19:36 | Hospitalist Progress Note ---
Date of Service October 10, 2021 Assessment & Plan (1) Pneumonia due to COVID-19 virus: Plan: Patient is an 89 yr female with PMHx of cerebral aneurysm, HTN, GERD, diffuse osteoarthritis, osteoporosis, HLD and Alzheimer dementia who presented after having sustained an acute fall where she hit her head. COVID-19 pneumonia Tested positive for COVID-19 on 09/18, symptoms started about 1 week before admission, unvaccinated Procalcitonin was 0.17 CXR showed an early pneumonia. Currently off oxygen Saturating well on room air Completed dexamethasone, remdesivir course Isolation precautions DC'd on 10/02 Patient agreeable to COVID-19 vaccine - received vaccine on 10/04 Poor appetite Waiting for placement (2) HTN (hypertension): Plan: -Continue home verapamil -Lasix and HCTZ on hold since admission BP relatively low We need to hold off diuretics upon discharge (3) Fall: Plan: - Mechanical Fall - Noted on imaging that there is a partially calcified extra-axial 1.4 cm lesion of the left posterior fossa is suggestive of a probable meningioma - PT/OT consulted and both recommending SNF placement -Awaiting placement (4) Osteoarthrosis: Plan: - Stable, chronic (5) GERD (gastroesophageal reflux disease): Plan: - Continue omeprazole (6) HLD (hyperlipidemia): Plan: - Continue atorvastatin 20 mg daily (7) Alzheimer's dementia: Plan: - Appears that this is fairly new diagnosis per PCP this past summer, son also report memory is worsening. - Pt lives at home by self and has 2 agencies coming in to visit her nearly daily - son is asking for placement at [facility] facility. Pt has suggested this to him previously. DVT px: SQ Heparin Dispo: Awaiting placement Admission and Anticipated Discharge Date Admission Date: September 18, 2021 Subjective Patient is seen and examined at bedside Offers no complaints currently Waiting for placement Poor appetite Review of Systems Review of Systems: All systems reviewed & are unremarkable except as noted in Subjective Physical Exam Physical Exam: Physical Exam: Vitals signs as noted above General Appearance: Thin, frail, ill-appearing Head: normocephalic, Atraumatic Eyes: normal inspection, EOMI Neck: supple, Trachea midline Respiratory/Chest: Decreased breath sounds, CTA, No accessory muscle use Cardiovascular: S1, S2, No murmur Abdomen/GI:Soft, Non tender, Bowel sounds present Extremities/Musculoskeletal:normal inspection, no edema Neurologic/Psych:grossly no focal neurological deficits Skin: normal color, warm Results & Data Results & Data ([facility]) Vital Signs (Past 12 Hours) Vital Signs Temp Pulse Resp BP Pulse Ox 10/10/21 15:17 36.4 C L 59 L 16 98/59 L 95
[2021-10-11] MEDS: HEPARIN SOD 5,000 UNIT/0.5 ML VIAL SQ SCH ×2 (08:08→21:22)
[2021-10-11] MEDS: ATORVASTATIN 20 MG TAB PO SCH (08:09)
[2021-10-11] MEDS: VERAPAMIL HCL 120 MG TABCR PO SCH ×2 (08:09→08:11)
[2021-10-11] MEDS: ACETAMINOPHEN 500 MG TAB PO SCH ×2 (08:09→21:22)
[2021-10-11] MEDS: PANTOprazole 40 MG TAB PO SCH (08:09)
[2021-10-11] MEDS: ASPIRIN 81 MG ECTAB PO SCH (08:10)
[2021-10-11] MEDS: FERROUS SULFATE 325 MG TAB PO SCH (08:10)
[2021-10-11 10:47] LABS: BUN Creatinine Ratio 43.5 (10-20); Calcium 7.5 mg/dl (8.5-10.1); Creatinine Clr Calc Pharmacy 42.1 ml/min; Est GFR (African American) 93.3 ml/min; Est GFR (Non-African American) 80.5 ml/min
--- NOTE | 2021-10-11 14:27 | Hospitalist Progress Note ---
Date of Service October 11, 2021 Assessment & Plan (1) Pneumonia due to COVID-19 virus: Plan: Patient is an 89 yr female with PMHx of cerebral aneurysm, HTN, GERD, diffuse osteoarthritis, osteoporosis, HLD and Alzheimer dementia who presented after having sustained an acute fall where she hit her head. Tested positive for COVID-19 on 09/18, symptoms started about 1 week before admission, unvaccinated Procalcitonin was 0.17 CXR showed an early pneumonia. Currently off oxygen Saturating well on room air Completed dexamethasone, remdesivir course Isolation precautions DC'd on 10/02 Patient agreeable to COVID-19 vaccine - received vaccine on 10/04 Poor appetite Waiting for placement (2) HTN (hypertension): Plan: -Continue home verapamil -Lasix and HCTZ on hold since admission -BP relatively low, will continue to hold diuretics at discharge (3) Fall: Plan: - Mechanical Fall - Noted on imaging that there is a partially calcified extra-axial 1.4 cm lesion of the left posterior fossa is suggestive of a probable meningioma - PT/OT consulted and both recommending SNF placement (4) Osteoarthrosis: Plan: - Stable, chronic (5) GERD (gastroesophageal reflux disease): Plan: - Continue omeprazole (6) HLD (hyperlipidemia): Plan: - Continue atorvastatin 20 mg daily (7) Alzheimer's dementia: Plan: - Appears that this is fairly new diagnosis per PCP this past summer, son also report memory is worsening. DVT px: SQ Heparin Dispo: Awaiting placement, possible discharge to [facility] tomorrow Admission and Anticipated Discharge Date Admission Date: September 18, 2021 Supervising Physician Co-Signing Physician Notes Patient is seen and examined at bedside. Appetite remains to be poor. Patient states having nausea with water intake which is usual for her. Denies any chest pain, shortness of breath. On exam patient is thin, frail, chronically appearing, no apparent distress, normocephalic atraumatic, EOMI, decreased breath sounds, clear to auscultation, S1-S2, abdomen soft, nontender, alert, awake, oriented, grossly no focal deficits. Blood pressure relatively low today. Continue to hold Lasix, HCTZ. Encouraged increased oral intake. Will start on Marinol to help with appetite. Waiting for placement. Appreciate rubber splicer input. I personally reviewed the record. Patient is interviewed and examined at bedside. Patient's care is coordinated with Emilia Preciado MAGNET MAKER. Please refer to the documentation above for details of patient's presentation and for discussion of other issues. Subjective Patient seen and examined. Follow-up for COVID-19 pneumonia. Patient resting in bed, offers no complaints. Eager to be discharged. Poor appetite continues, patient reports she does not like the food here. Denies chest pain, shortness of breath, cough. No abdominal pain, nausea, vomiting or diarrhea. Review of Systems Review of Systems: ROS per HPI, all other systems reviewed and negative Physical Exam Constitutional: + thin; no acute distress Respiratory: normal respiratory effort, lungs clear to auscultation Cardiovascular: Rate/Rhythm: regular rate and regular rhythm Vessels: normal peripheral pulses Extremities: no edema Gastrointestinal (Abdomen): Percussion/Palpation: abdomen soft; abdomen nontender Skin: no rashes, warm and dry Neurologic: no focal motor deficits Psychiatric: A+Ox3, euthymic affect Results & Data Results & Data ([facility]) Vital Signs (Past 12 Hours) Vital Signs Temp Pulse Resp BP Pulse Ox 10/11/21 07:39 36.3 C L 65 17 96/65 L 95 Laboratory Results [facility] 10/11/21 09:57 Sodium 142 Potassium 4.0 Chloride 112 H Carbon Dioxide 25 BUN 27 H Creatinine 0.62 Glucose 84 Calcium 7.5 L
[2021-10-12] MEDS: ACETAMINOPHEN 500 MG TAB PO SCH ×2 (09:30→21:16)
[2021-10-12] MEDS: ACETAMINOPHEN 325 MG TAB PO PRN (09:33)
[2021-10-12] MEDS: PANTOprazole 40 MG TAB PO SCH (09:33)
[2021-10-12] MEDS: ASPIRIN 81 MG ECTAB PO SCH (09:33)
[2021-10-12] MEDS: FERROUS SULFATE 325 MG TAB PO SCH (09:33)
[2021-10-12] MEDS: HEPARIN SOD 5,000 UNIT/0.5 ML VIAL SQ SCH ×2 (09:34→21:16)
[2021-10-12] MEDS: VERAPAMIL HCL 120 MG TABCR PO SCH (09:34)
[2021-10-12] MEDS: ATORVASTATIN 20 MG TAB PO SCH (09:34)
[2021-10-12] MEDS: POLYETHYLENE (MIRALAX) 17 GM PACK PO PRN (13:29)
--- NOTE | 2021-10-12 15:46 | Hospitalist Progress Note ---
Date of Service October 12, 2021 Assessment & Plan (1) Pneumonia due to COVID-19 virus: Plan: Patient is an 89 yr female with PMHx of cerebral aneurysm, HTN, GERD, diffuse osteoarthritis, osteoporosis, HLD and Alzheimer dementia who presented after having sustained an acute fall where she hit her head. Tested positive for COVID-19 on 09/18, symptoms started about 1 week before admission, unvaccinated Procalcitonin was 0.17 CXR showed an early pneumonia. Currently off oxygen Saturating well on room air Completed dexamethasone, remdesivir course Isolation precautions DC'd on 10/02 Patient agreeable to COVID-19 vaccine - received vaccine on 10/04 Poor appetite -patient reports she does not like the food here Waiting for placement (2) HTN (hypertension): Plan: BP running on the lower side, will decrease verapamil to 90 mg daily Lasix and HCTZ on hold since admission BP relatively low, will continue to hold diuretics at discharge (3) Fall: Plan: - Mechanical Fall - Noted on imaging that there is a partially calcified extra-axial 1.4 cm lesion of the left posterior fossa is suggestive of a probable meningioma - PT/OT consulted and both recommending SNF placement (4) Osteoarthrosis: Plan: - Stable, chronic (5) GERD (gastroesophageal reflux disease): Plan: - Continue omeprazole (6) HLD (hyperlipidemia): Plan: - Continue atorvastatin 20 mg daily (7) Severe protein-calorie malnutrition: Plan: Duty Engineer following Marinol started on 10/11 (8) Alzheimer's dementia: Plan: - Appears that this is fairly new diagnosis per PCP this past summer, son also report memory is worsening. DVT px: SQ Heparin Dispo: Accepted to [facility], insurance auth pending Admission and Anticipated Discharge Date Admission Date: September 18, 2021 Supervising Physician Co-Signing Physician Notes Patient is seen and examined at bedside. States having minimal abdominal discomfort during my encounter. Denies any nausea, vomiting, chest pain, dyspnea. Appetite remains poor. On exam patient is thin, frail, chronically appearing, no apparent distress, normocephalic atraumatic, EOMI, decreased breath sounds, clear to auscultation, S1-S2, abdomen soft, nontender, alert, awake, oriented, grossly no focal deficits. Given relatively low blood pressure, I agree with decreasing verapamil dose to 90 mg daily. Plan to discontinue diuretics for now. We will give MiraLAX to help with bowel movement. Will consider KUB if abdominal discomfort continues. Started on Marinol to help with appetite. Waiting for placement. I personally reviewed the record. Patient is interviewed and examined at bedside. Patient's care is coordinated with Emilia Preciado TELECOMMUNICATIONS NETWORK PLANNER. Please refer to the documentation above for details of patient's presentation and for discussion of other issues. Subjective Patient seen and examined. Follow-up for COVID-19 pneumonia. Patient sitting up in the chair, offers no complaints. Eager to be discharged. Poor appetite continues, patient reports she does not like the food here. Denies chest pain, shortness of breath, cough. No abdominal pain, nausea, vomiting or diarrhea. Review of Systems Review of Systems: ROS per HPI, all other systems reviewed and negative Physical Exam Constitutional: + thin; no acute distress Respiratory: normal respiratory effort; no respiratory distress Auscult ation: + diminished lung sounds Cardiovascular: Rate/Rhythm: regular rate and regular rhythm Vessels: poppy l peripheral pulses Extremities: no edema Gastrointestinal (Abdomen): Percussion/Palpation: abdomen soft; abdomen nonte nder Skin: no rashes, warm and dry Neurologic: no focal motor deficits Psychiatric: A+Ox3, euthymic affect Results & Data Results & Data ([facility]) Vital Signs (Past 12 Hours) Vital Signs Temp Pulse Resp BP BP Pulse Ox 10/12/21 15:09 36.7 C 73 16 100/67 96 10/12/21 07:21 36.4 C L 56 L 16 93/55 L 92
[2021-10-13] MEDS: ASPIRIN 81 MG ECTAB PO SCH (08:53)
[2021-10-13] MEDS: ATORVASTATIN 20 MG TAB PO SCH (08:54)
[2021-10-13] MEDS: FERROUS SULFATE 325 MG TAB PO SCH (08:54)
[2021-10-13] MEDS: PANTOprazole 40 MG TAB PO SCH (08:54)
[2021-10-13] MEDS: HEPARIN SOD 5,000 UNIT/0.5 ML VIAL SQ SCH ×2 (08:54→21:06)
[2021-10-13] MEDS: ACETAMINOPHEN 500 MG TAB PO SCH ×2 (08:59→21:05)
[2021-10-13] MEDS ORDERED: VERAPAMIL HCL 180 MG TABCR PO SCH (09:00)
[2021-10-13] MEDS ORDERED: SODIUM CHLORIDE 0.9% 1000ML 1,000 ML IV ONE (17:30)
--- NOTE | 2021-10-13 19:16 | Hospitalist Progress Note ---
Date of Service October 13, 2021 Assessment & Plan (1) Pneumonia due to COVID-19 virus: Plan: Patient is an 89 yr female with PMHx of cerebral aneurysm, HTN, GERD, diffuse osteoarthritis, osteoporosis, HLD and Alzheimer dementia who presented after having sustained an acute fall where she hit her head. Tested positive for COVID-19 on 09/18, symptoms started about 1 week before admission, unvaccinated Procalcitonin was 0.17 CXR showed an early pneumonia. Currently off oxygen Saturating well on room air Completed dexamethasone, remdesivir course Isolation precautions DC'd on 10/02 Patient agreeable to COVID-19 vaccine - received vaccine on 10/04 Poor appetite -patient reports she does not like the food here Waiting for placement (2) HTN (hypertension): Plan: Blood pressure relatively low Lasix and HCTZ discontinued Verapamil dose decreased to 60 mg daily Gentle IV fluids (3) Fall: Plan: - Mechanical Fall - Noted on imaging that there is a partially calcified extra-axial 1.4 cm lesion of the left posterior fossa is suggestive of a probable meningioma - PT/OT consulted and both recommending SNF placement (4) Osteoarthrosis: Plan: - Stable, chronic (5) GERD (gastroesophageal reflux disease): Plan: - Continue omeprazole (6) HLD (hyperlipidemia): Plan: - Continue atorvastatin 20 mg daily (7) Severe protein-calorie malnutrition: Plan: [employer] Lead following Marinol started on 10/11 (8) Alzheimer's dementia: Plan: - Appears that this is fairly new diagnosis per PCP this past summer, son also report memory is worsening. DVT px: SQ Heparin Dispo: Accepted to [facility], insurance auth pending Admission and Anticipated Discharge Date Admission Date: September 18, 2021 Subjective Patient is seen and examined at bedside Offers no complaints today Abdominal discomfort resolved Denies any chest pain, shortness of breath, dizziness Waiting for placement Review of Systems Review of Systems: All systems reviewed & are unremarkable except as noted in Subjective Physical Exam Physical Exam: Physical Exam: Vitals signs as noted above General Appearance: Thin, frail, ill-appearing Head: normocephalic, Atraumatic Eyes: normal inspection, EOMI Neck: supple, Trachea midline Respiratory/Chest: Decreased breath sounds, CTA, No accessory muscle use Cardiovascular: S1, S2, No murmur Abdomen/GI:Soft, Non tender, Bowel sounds present Extremities/Musculoskeletal:normal inspection, no edema Neurologic/Psych:grossly no focal neurological deficits Skin: normal color, warm Results & Data Results & Data ([facility]) Vital Signs (Past 12 Hours) Vital Signs Temp Pulse Resp BP BP Pulse Ox 10/13/21 17:25 96/56 L 92/54 L 10/13/21 14:24 36.6 C 63 16 93/57 L 95
[2021-10-14] MEDS ORDERED: VERAPAMIL HCL 120 MG TABCR PO SCH (09:00)
[2021-10-14] MEDS: ACETAMINOPHEN 500 MG TAB PO SCH ×2 (09:08→20:11)
[2021-10-14] MEDS: PANTOprazole 40 MG TAB PO SCH (09:08)
[2021-10-14] MEDS: HEPARIN SOD 5,000 UNIT/0.5 ML VIAL SQ SCH ×2 (09:08→20:11)
[2021-10-14] MEDS: ATORVASTATIN 20 MG TAB PO SCH (09:08)
[2021-10-14] MEDS: ASPIRIN 81 MG ECTAB PO SCH (09:08)
[2021-10-14] MEDS: FERROUS SULFATE 325 MG TAB PO SCH (09:08)
[2021-10-14 11:34] LABS: Calcium 7.5 mg/dl (8.5-10.1); Creatinine Clr Calc Pharmacy 52.2 ml/min; Est GFR (African American) 100.2 ml/min; Est GFR (Non-African American) 86.4 ml/min; Potassium 4.1 mmol/L (3.5-5.1)
--- NOTE | 2021-10-14 14:57 | Hospitalist Progress Note ---
Date of Service October 14, 2021 Assessment & Plan (1) Pneumonia due to COVID-19 virus: Plan: Patient is an 89 yr female with PMHx of cerebral aneurysm, HTN, GERD, diffuse osteoarthritis, osteoporosis, HLD and Alzheimer dementia who presented after having sustained an acute fall where she hit her head. Tested positive for COVID-19 on 09/18, symptoms started about 1 week before admission, unvaccinated Procalcitonin was 0.17 CXR showed an early pneumonia. Currently off oxygen Saturating well on room air Completed dexamethasone, remdesivir course Isolation precautions DC'd on 10/02 Patient agreeable to COVID-19 vaccine - received vaccine on 10/04 Poor appetite -patient reports she does not like the food here Waiting for placement (2) HTN (hypertension): Plan: Blood pressure relatively low Lasix and HCTZ discontinued Verapamil held for now given Hypotension/ bradycardia Monitor (3) Fall: Plan: - Mechanical Fall - Noted on imaging that there is a partially calcified extra-axial 1.4 cm lesion of the left posterior fossa is suggestive of a probable meningioma - PT/OT consulted and both recommending SNF placement (4) Osteoarthrosis: Plan: - Stable, chronic (5) GERD (gastroesophageal reflux disease): Plan: - Continue omeprazole (6) HLD (hyperlipidemia): Plan: - Continue atorvastatin 20 mg daily (7) Severe protein-calorie malnutrition: Plan: Procurement Accountant following Marinol started on 10/11 (8) Alzheimer's dementia: Plan: - Appears that this is fairly new diagnosis per PCP this past summer, son also report memory is worsening. DVT px: SQ Heparin Dispo: Accepted to [facility], insurance auth pending Admission and Anticipated Discharge Date Admission Date: September 18, 2021 Subjective Patient is seen and examined at bedside States feeling well Eager to get discharged No complaints today Denies any chest pain, shortness of breath, dizziness, abd pain Review of Systems Review of Systems: All systems reviewed & are unremarkable except as noted in Subjective Physical Exam Physical Exam: Physical Exam: Vitals signs as noted above General Appearance: Thin, frail, ill-appearing Head: normocephalic, Atraumatic Eyes: normal inspection, EOMI Neck: supple, Trachea midline Respiratory/Chest: Decreased breath sounds, CTA, No accessory muscle use Cardiovascular: S1, S2, No murmur Abdomen/GI:Soft, Non tender, Bowel sounds present Extremities/Musculoskeletal:normal inspection, no edema Neurologic/Psych:grossly no focal neurological deficits Skin: normal color, warm Results & Data Results & Data ([facility]) Vital Signs (Past 12 Hours) Vital Signs Temp Pulse Resp BP BP Pulse Ox 10/14/21 07:30 36.5 C 56 L 16 103/67 95 10/14/21 04:05 96/63 L Laboratory Results [facility] 10/14/21 10:47 Sodium 140 Potassium 4.1 Chloride 110 H Carbon Dioxide 26 BUN 18 Creatinine 0.50 L Glucose 78 Calcium 7.5 L
[2021-10-15] MEDS: PANTOprazole 40 MG TAB PO SCH ×2 (08:23→10:03)
[2021-10-15] MEDS: ATORVASTATIN 20 MG TAB PO SCH ×2 (08:23→10:02)
[2021-10-15] MEDS: ASPIRIN 81 MG ECTAB PO SCH ×2 (08:23→10:02)
[2021-10-15] MEDS: FERROUS SULFATE 325 MG TAB PO SCH ×3 (08:24→10:03)
[2021-10-15] MEDS: ACETAMINOPHEN 500 MG TAB PO SCH ×2 (08:24→10:01)
[2021-10-15] MEDS: HEPARIN SOD 5,000 UNIT/0.5 ML VIAL SQ SCH (08:25)
--- NOTE | 2021-10-15 13:34 | Discharge Summary ---
Date of Service October 15, 2021 Admission HPI Per Admitting Provider This is a 89-year-old female with PMHx of cerebral aneurysm, HTN, GERD, diffuse osteoarthritis, osteoporosis, HLD and Alzheimer dementia who presents after having sustained an acute fall where she hit her head. She was attempting to maker herself hot chocolate, and reached for a pot and lost her balance, which caused her to fall. She admits to hitting her head. She pressed her home alert button and EMS arrived. Pt is coughing while talking to her over the phone, and says has been present for "a while", but cannot further quantify the timing. She had a slight fever yesterday and took tylenol which improved it. Admit to loss of appetite and states she now weighs 100 lbs, down 15lbs within the past month approximately. No diarrhea, no cramping or pain. She is not vaccinated. Denies known positive contacts. She lives in an assisted living center where there are aids that check in on her once daily. Denies any other acute complaints. No hx of needing O2 and denies any previous respiratory issues. Discussed with her son, Chato, over the phone. He reports that she at baseline does not remember such. She also does not take her medications routinely. She stays in [facility] apartment independently. Home blessed home, and [facility] alternate coming in to visit her. Son mentions that she has requested going to [facility] after her hospital stay. Social: no drinking or alcohol Family Hx: Son denies significantly family history on patients side, of old age, so did siblings. Admission Exam Per Admitting Provider GENERAL: Alert and oriented x3. NAD, on 1L, scoliosis and thoracis kyphosis noted. HEENT: No pallor, no icterus. Pupils equal, round and reactive to light. Oral mucosa moist. NECK: No JVD, no neck masses. HEART: S1 and S2 heard. Regular rate and rhythm. No murmur, no gallop. RESPIRATORY SYSTEM: No accessory muscle use. No wheezing, no crackles. Decreased breath sounds ABDOMEN: Soft, bowel sounds present, nontender, no distention. CENTRAL NERVOUS SYSTEM: No facial droop. Speech is clear. Obeys simple commands. Moves extremities. EXTREMITIES: No edema, no erythema seen. Principal Diagnosis COVID-19 Pneumonia - resolved Hypoxia - resolved Fall History of Hypertension, blood pressure on lower side, medications stopped Discharge Exam Gen: Thin, frail, cachectic F, NAD, A&O x3 HEENT: Normocephalic, atraumatic, conjunctivae moist, sclerae anicteric, mucous membranes moist. Lung: Clear to Auscultation bilaterally, no wheezes/rales/rhonchi Heart: Regular rate, regular rhythm, no murmurs, rubs, or gallops Abdomen: Soft, NT, ND +BS x 4 Extremities: No edema Skin: Warm, no rash, negative turgor. Discharge Data Allergies Allergy/AdvReac Type Severity Reaction Status Date / Time doxycycline Allergy Mild unknown Verified 09/18/21 10:24 Consultations 09/18/21 10:27 ED Decision to Admit Stat Ordered Studies Head CT 09/18/21 09:26 CT head/brain wo con CLINICAL HISTORY: 89 years-old Female with fall. Acute head trauma status post fall TECHNIQUE: Multiple axial CT images of the head were obtained without contrast. A dose lowering technique was utilized adhering to the principles of ALARA. CT DOSE: 614.27 mGy.cm COMPARISON: Head CT 11/06/2017 FINDINGS: No acute intracranial hemorrhage, midline shift, intra-axial mass, hydrocephalus, territorial ischemia or abnormal extra-axial collection. Age- related involutional changes with ex vacuo ventriculomegaly. White matter hypodensities suggestive of chronic microvascular ischemic disease. 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 Chronic lacunar infarct of the right basal ganglia. Cerebral vascular calcifications. 10 mm calcification within the prepontine cistern on image 8 series 2 appears stable. Partially calcified 1.4 cm extra-axial lesion of the left posterior fossa on image 6 series 2. The calvarium is intact. There is mild mucosal thickening of the maxillary sinuses. The mastoid air cells appear clear. Developmental incomplete bony fusion involves the posterior arch of C1. Prior bilateral lens repair. IMPRESSION: 1. No acute intracranial abnormality or calvarial fracture. 2. Partially calcified extra-axial 1.4 cm lesion of the left posterior fossa is suggestive of a probable meningioma. 3. 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 ACT 112: Negative or not required by law. The above report was generated using voice recognition software. It may contain grammatical, syntax or spelling errors. Electronically signed by: Kaden Davis M.D. 09/18/2021 10:21 AM Chest X-Ray 09/18/21 09:27 XR chest 1V portable CLINICAL HISTORY: Chest Pain. COMPARISON STUDY: 08/19/2018 TECHNIQUE: 1 view of the chest FINDINGS: Single frontal view of the chest demonstrates the cardiomediastinal silhouette to be within normal limits. There is evidence for a large hiatal hernia in the retrocardiac space. Patchy interstitial and alveolar opacities are present bilaterally. The findings are most characteristic of a viral type pneumonitis. Covid 19 pneumonia should be excluded. There is no evidence for pleural effusion. There is no evidence for vascular congestion. There is no acute osseous pathology. IMPRESSION: Patchy interstitial and alveolar opacities bilaterally characteristic of a viral type pneumonitis and probable early Covid 19 pneumonia. ACT 112: Negative or not required by law. Electronically signed by: Vance Crooks M.D. 09/18/2021 10:00 AM Hospital Course (1) Hypoxia: (2) Pneumonia due to COVID-19 virus: (3) Fall: (4) HTN (hypertension): (5) Alzheimer's dementia: (6) Severe protein-calorie malnutrition: Patient is an 89 yr female with PMHx of cerebral aneurysm, HTN, GERD, diffuse osteoarthritis, osteoporosis, HLD and Alzheimer dementia who presented after having sustained an acute fall where she hit her head on 09/18/2021. Fall was purely mechanical and she did not sustain any acute injury. On imaging it was noted that she had a partially calcified extra-axial 1.4 cm lesion of the left posterior fossa suggesting a probable meningioma. She tested positive for COVID-19 on 09/18 and symptoms started approximately 1 week prior to admission. Patient was unvaccinated. Chest x-ray showed early signs of COVID-pneumonia. She completed a course of IV dexamethasone and remdesivir. Initially patient was hypoxic and was able to be weaned off oxygen supplementation. Isolation precautions were discontinued on 10/02/2021. She was agreeable to the COVID-19 vaccine and received 1 dose of Talknote on 10/04/2021. During hospitalization her blood pressure remained on the lower side. Her Lasix and hydrochlorothiazide were discontinued. Her verapamil was also on hold secondary to low blood pressure and bradycardia. At discharge we are discontinuing all blood pressure medications including Lasix, hydrochlorothiazide and verapamil. We recommending monitoring blood pressure twice daily. Goal blood pressure for patient is less than 150/90. If she remains persistently elevated recommend follow-up with PCP. She was seen by physical and Occupational Therapy who recommended [facility] facility upon discharge. On day of discharge patient was without acute complaints, saturating well on room air and normotensive at 112/70. She was alert and oriented x 3 and denied any chest pain or SOB. She has been moving bowels regularly. She continues to complain of disliking food and has overall had a poor appetite while in hospital. She was started on Marinol 2.5 mg daily for appetite stimulation. It is recommended patient follow-up with dietitian at [facility] for further nutrition assistance. Total Time Total Time Spent Total Time Spent (In Minutes): 60 minutes Total Time Includes: Examination of the Patient, Discharge Planning, Medication Reconciliation and Communication With Other Providers Discharge Plan Discharge Items Patient Disposition: Transfer [facility] Reason For Visit: COVID 19 +,FALL Discharge Diagnosis: COVID-19 Pneumonia - resolved Hypoxia - resolved Fall History of Hypertension, blood pressure on lower side, medications stopped Condition on Discharge: Good Activity: Resume your previous activity Weightbearing: Full weightbearing Non-emergency contact: Primary Care Provider Call non-emergency contact if: you have any medication questions, your symptoms worsen, your pain is not controlled, your pain is worsening, your pain is unusual for you, your pain is concerning for you, you have a fever and your temperature is above 101 Follow-up/Referrals: Gurwinder Edwards MD [Primary Care Provider] - Diet: Regular Addtl Attending Provider Instructions: Medication Changes: Your blood pressure medications have been stopped due to your blood pressure running on the lower side. Please discontinue Verapamil, Hydrochlorothiazide, and furosemide. You were started on Marinol 2.5mg daily for appetite stimulation. RECOMMENDATIONS FOR FOLLOW-UP: Follow up with Primary Care Doctor after discharged from [facility]. Please monitor your blood pressure twice daily. If your blood pressure were to become elevated > 150/90 consistently, please discuss with Primary Care Doctor about resuming blood pressure medications. Continue Physical and Occupational therapy. Recommend follow up with interlibrary loan specialist at nursing facility to monitor nutrition status. Daily weight. Continue all other medications. Avoid anti inflammatory medications including advil, ibuprofen, aleve, naproxen, naprosyn or excedrin. If you have pain you may take Tylenol ( acetaminophen) 500mg every 6 hours as needed. Do not exceed > 2,000mg daily. OTHER INSTRUCTIONS: Seek medical attention if you have: * temperature above 101 * chest pain or trouble breathing * abdominal pain, nausea, vomiting * diarrhea, dark stools or bloody stools * any unanswered questions or concerns Call 911 if symptoms are severe. Please take good care of yourself. It has been a pleasure taking care of you. Please take care of yourself. If you have any questions regarding your recent hospitalization please contact [facility] and request Lisa Duong @ [phone]. Kimberlyn Obregon PA-C Pending Studies at Discharge: No Stand-Alone Forms: My [facility] Skilled Items Patient informed of condition?: Yes DNR: Yes Discharge Level of Care: Skilled Communicable Disease: No Discharge Prognosis: Stable Lines: None Urinary Catheter: No Medications and DC Order Prescriptions: New dronabinol 2.5 mg Capsule 2.5 mg PO DAILY Qty: 30 RF: 0 Continued aspirin 81 mg Tablet 81 mg PO DAILY RF: 0 atorvastatin 20 mg Tablet 20 mg PO DAILY Qty: 30 RF: 0 omeprazole 20 mg Capsule,Delayed Release(Dr/Ec) 20 mg PO DAILY Qty: 30 RF: 0 ferrous sulfate 325 mg 325 mg PO DAILY Qty: 30 RF: 0 Discontinued verapamil 120 mg Tablet 120 mg PO QAM RF: 0 hydrochlorothiazide 25 mg Tablet 25 mg PO DAILY RF: 0 furosemide 20 mg tablet 20 mg PO DAILY RF: 0 Discharge Orders: Discharge Order (Routine); Ordered 10/15/21 Ordered By: Kimberlyn Obregon Admission Data Admit Date/Time: 09/18/21 11:30 Attending Provider: Alexandr Huang Admit Provider: Kam Patterson Primary Care Provider: Gurwinder Edwards Other Providers: [place] ; Kam Patterson ; Richard Cedillo ; Kimberlyn Obregon Other Interventions: Discharge Summary Assessment (RN) Last Done: 10/15/21 12:24 Supervising Physician Co-Signing Physician Notes Patient is seen and examined at bedside. Patient is having for lunch during my encounter. Offers no complaints. Eager to get discharged. Denies any nausea, v omiting, chest pain, dyspnea. On exam patient is thin, frail, chronically appearing, no apparent distress, normocephalic atraumatic, EOMI, decreased breath sounds, clear to auscultation, S1-S2, abdomen soft, nontender, alert, awake, oriented, grossly no focal deficits. Blood pressure stable today. Agree with discontinuing diuretics, verapamil for now. Advised to follow-up with PCP for further adjustment of medications. Plan to be discharged to SNF today. I personally reviewed the record. Patient is interviewed and examined at bedside. Patient's care is coordinated with Kimberlyn Obregon PA-C . Please refer to the documentation above for details of patient's presentation and for discussion of other issues.
== END 2021-10-15 14:50 | DRG 177 ==
LOC: ED 09:01 → 2W 11:30 → SUATTDRO 11:30 → 2W 13:26 → 3W 09-22 20:19 → 3E 09-27 16:54